=== PATIENT | female | born 1990 | race African-American/Black ===

== ENCOUNTER 2022-06-23 17:23 | Emergency (ER) | payer BC, SELFPAY ==
[2022-06-23 17:35] VITALS: BP 154/89; PULSE 94; RESP 16; TEMP 36.8; O2SAT 100
--- NOTE | 2022-06-23 17:43 | ED.GENADULT ---
HPI - General Adult General Chief complaint: Chest Pain Stated complaint: chest pain Source: patient Mode of arrival: ambulatory Limitations: no limitations History of Present Illness HPI narrative: [age] year old female with hx HTN presents for complaint of intermittent right-sided chest pain for almost 1 week. Also wanted to follow-up regarding sinus congestion, headache, and ear infections diagnosed 2 days ago. She states she started with right-sided headache and right eye pain with redness, dry cough and bilateral ear pain worsening over the past week. She was seen by PCP 2 days ago and was prescribed Augmentin for bilateral ear infection. They also performed an EKG at that time for her right-sided chest pain, and was told it was normal. Patient reports the pain is sharp, tight, intermittent, and worse with movement. Endorses stressful job and history of anxiety. Denies palpitations, shortness of breath, wheezing, nausea, vomiting or sweating. Pain is not radiating. Related Data Home Medications Medication Instructions Recorded Confirmed amlodipine 5 mg tablet mg 06/23/22 amoxicillin 875 mg-potassium tablet 06/23/22 clavulanate 125 mg tablet buspirone 10 mg tablet mg 06/23/22 hydrochlorothiazide 12.5 mg capsule mg 06/23/22 paroxetine HCl 20 mg tablet mg PO 06/23/22 prednisone 20 mg tablet mg 06/23/22 trazodone 50 mg tablet mg 06/23/22 Allergies Allergy/AdvReac Type Severity Reaction Status Date / Time No Known Allergies Allergy Verified 06/23/22 17:33 Review of Systems Review of Systems: CONSTITUTIONAL: Denies body aches, fever, chills, or sweats. EYES: Denies visual changes, redness, or discharge. ENT: Reports rhinorrhea, congestion, denies sore throat, or otalgia. CARDIOVASCULAR: Reports right sided chest pain, denies palpitations, or edema. RESPIRATORY: denies cough, sob, wheezing. GASTROINTESTINAL: Denies abdominal pain, nausea, vomiting, or diarrhea. GENITOURINARY: Denies dysuria or hematuria. SKIN: Denies rash, itching, or wounds. MUSCULOSKELETAL: Denies back pain, joint pain, or myalgia. NEUROLOGIC: Reports headache, denies numbness, tingling, or weakness. PSYCH: Reports anxiety. All systems reviewed & are unremarkable except as noted in HPI and below PMFSH Comments At time of signature, I have reviewed and agree with nursing past medical, surgical, social and family history unless otherwise noted. Please see nursing chart for further information. There is no relevant family history pertinent to the presenting complaint Exam Narrative: GENERAL: Well-appearing, in no acute distress. EYES: EOMI. No redness or drainage. Conjunctivae normal. ENT: Mucous membranes pink and moist. No rhinorrhea. TMs normal bilaterally. Throat normal. Uvula midline. NECK: Normal AROM. Supple. CHEST: No respiratory distress. Lungs clear to all yoder. No reproducible chest pain HEART: Regular rate and rhythm. No murmur appreciated. ABDOMEN: Soft, nontender, nondistended, normal active bowel sounds. EXTREMITIES: Normal range of motion. No edema. SKIN: Warm, dry, no rash. Capillary refill normal. Normal skin turgor. NEURO: Alert and oriented x3. Gait steady. PSYCH: Normal affect. Course Course Emergency Course: Patient is aware of diagnosis, understands and agrees to treatment plan. Anticipatory guidance given. Patient agrees to follow-up as directed and is aware of reasons to seek care at the emergency department. Portions of this record may have been created with voice recognition software Level of Care: Express Care Visit Vital Signs Vital signs: Vital Signs Temperature 98.3 F 06/23/22 17:35 Pulse Rate 94 06/23/22 17:35 Respiratory Rate 16 06/23/22 17:35 Blood Pressure 154/89 H 06/23/22 17:35 Pulse Oximetry 100 06/23/22 17:35 Temperature 98.3 F 06/23/22 17:35 Pulse Rate 94 06/23/22 17:35 Respiratory Rate 16 06/23/22 17:35 Blood Pres
== END 2022-06-23 18:06 | disposition home or self-care (01) ==
PROVIDERS: Emergency Provider Nurse Practitioner Family
DX: R07.89 Other chest pain (principal); I10 Essential (primary) hypertension
CPT/HCPCS: 99211; G0463

== ENCOUNTER 2024-04-11 12:48 | Outpatient (CLI) | payer OTHER, SELFPAY ==
--- NOTE | ~2024-04-11 | US_ITS ---
EXAMINATION: US OB transvaginal DATE: 04/11/2024 13:17 INDICATION: with inconclusive viability. TECHNIQUE: Real-time transvaginal pelvic ultrasound was performed. COMPARISON: None. FINDINGS: The uterus measures 9.8 x 5.7 x 6.5 cm. There is an intrauterine gestational sac. A yolk sac is ident ified. The crown rump length measures 1.3 cm, which correlates with an estimated gestational a ge of 7 weeks and 4 day(s) (+/-) 5 day(s). heart motion is identified measuring 178 beats per m inute (bpm) by M-mode Doppler. The ovaries are not visualized. There is no free fluid in the pelvis. IMPRESSION: 1. Single living intrauterine gestation with estimated date of delivery of 11/24/2024. Reviewed, dictated and finalized at location A. RESOLUTION SPECIALIST
== END 2024-04-11 12:49 | disposition home or self-care (01) ==
LOC: MICIMG 12:49
PROVIDERS: PCP Nurse Practitioner Women's Health; Visit Provider Nurse Practitioner Women's Health
DX: O36.80X0 Pregnancy with inconclusive fetal viability, not applicable or unspecified (principal); Z3A.00 Weeks of gestation of pregnancy not specified
CPT/HCPCS: 76817

== ENCOUNTER 2024-08-02 09:35 | Observation (INO) | payer OTHER, SELFPAY ==
[2024-08-02] VITALS (8 sets, daily range): BP systolic 123–137; BP diastolic 71–78; PULSE 81–96; BMI 40.6
--- OUTSIDE RECORDS SUMMARY | 2024-08-02 09:44 | XMS_ITS | Clinical Summary ---
Author Organization [facility] [email or web address] Address [address] [place] [address] Care Team Providers Care Machinery Mover Name Role Phone Unknown, Provider Primary Care Provider Unavaila ble Source Comments [facility],non-owned Affiliates and Associated Physician Practices is amultiple site organization consisting of ambulatory clinics and hospital sitesin [place], [place], [place] and [place]. This disclosure is being madepursuant to the Care Everywhere program and may not contain all information available regarding this patient. Last updated 17.[facility] [email or web address] Allergies Active Allergy Reactions Criticality Noted Date Comments Etonogestrel-Ethinyl Estradiol Urticaria Medium 07/05 Medications * Be aware that medications may not be up to date on this document. Alwaysverify current medications with the patient. sertraline (Zoloft) 50 MG tablet Take 1 (one) tablet by mouth once daily 05/27/2024 Active Vit-Fe Fumarate-FA ( vitamin) 28-0.8 MG tablet Take 1 (one) tablet by mouth once daily Active Active Problems Patient Care Coordination No te Formatting of this note migh t be different from the original. Please see care plan in problem list. 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 SNF PATIENT--PLEASE CALL [phone] (ex 2) IF TRIAGED OR ADMITTED Care Provider: Dr. Davis; [facility] consultants involved: Marissa- Nurse Navigator; Dr. 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 See Images or Cardiac under Chart Review for US/ ECHO/ MRI reports. Estimated Date of Delivery Comme nts Yes 11/24/2024 Based on Ultraso und Encounters Date Type Department Care Team Description 08/01/2024 7:30 AM CDT - 08/01/2024 11:59 PM CDT Hospital Encounter [facility] [address] [place] [address] Farhad Casarez MD Dildy, Gary A, MD Discharge Disposition: Home or Self Care 07/29/[address] [address] Makeda Garcia, military communications specialist 07/29/2024 Telephone [facility] [place] [facility] [address] [address] Makeda Garcia, military communications specialist 07/26/[address] [address] Makeda Garcia, military communications specialist 07/05/2024 8:53 AM CDT - 07/05/2024 11:59 PM CDT Hospital Encounter [facility] [address] [place] [address] Blayne Mancera MD Discharge Disposition: Home or Self Care 07/05/2024 7:30 AM CDT - 07/05/2024 8:52 AM CDT Hospital Encounter [facility] [address] [place] [address] Blayne Mancera MD Discharge Disposition: Home or Self Care from Last 3 Months Social History Tobacco Use Types Packs/Day Years Used Date Smoking Tobacco: Never Assessed Estimated Date of Delivery Comme nts Yes 11/24/2024 Based on Ultraso und Sex and Gender Information Value Date Recorded Sex Assigned at Not on file Legal Sex Female 6:23 AM MANAGER OF INFORMATION Gender Identity Not on file Sexual Orientation Not on file Last Filed Vital Signs Vital Sign Reading Time Taken Comments Blood Pressure 124/72 07/05/2024 8:54 AM CDT Pulse 90 07/05/2024 8:54 AM CDT Temperature - - Respiratory Rate - - Oxygen Saturation - - Inhaled Oxygen Concentration - - Weight 121.6 kg (268 lb) 07/05/2024 8:54 AM CDT Height 175.3 cm (5' 9) 07/05/2024 8:54 AM CDT Body Mass Index 39.58 07/05/2024 8:54 AM CDT Plan of Treatment Upcoming Encounters Date Type Department Care Team (Late st Contact Info) Description 08/22/2024 12:30 PM CDT Appointment [address] [address] 08/29/2024 7:30 AM CDT Appointment [facility] [address] [place] [address] Health Maintenance Due Date Last Done Comments HIV SCREENING 10/01/2003 HEPATITIS C SCREENING 09/26/2006 DTAP/TDAP/TD VACCINES (1 - Tdap) 10/01/2007 HEPATITIS B VACCINE (1 of 3 - 19+ 3-dose series) 10/01/2007 COVID-19 VACCINE (4 - 2023-2 5 season) 2023 03/26/2021, 09/14/2020, 08/26/2020 DEPRESSION SCREENING 02/21/2024 OB-ONE HOUR GLUCOSE 08/18/2024 OB-TDAP CURRENT 08/25/20242020, 10/15/2012 INFLUENZA VACCINE (Season Ended) 2024 Respiratory Syncytial Virus (RSV) Vaccine Pt: or over 60 yrs (1 - Risk 1-dose series) 10/21/2024 PAP SMEAR 01/10/2027 01/11/2024 ZOSTER VACCINE (1 of 2) 2038 HIB VACCINE Aged Out No longer eligi ble based on patient's age to complete this topic HPV VACCINE Aged Out No longer eligi ble based on patient's age to complete this topic MENINGOCOCCAL (Group B) VACCINE SHARED DECISION-MAKING Aged Out No longer eligible based on patient's age to complete this topic MENINGOCOCCAL GROUPS A/C/Y/W VACCINE Aged Out No longer eligible b ased on patient's age to complete this topic PNEUMOCOCCAL VACCINE Aged Out No long er eligible based on patient's age to complete this topic Procedures Procedure Name Priority Date/Time Associated Diagnosis Comments SONOGRAM - COMPLETE Routine 08/01/2024 7 :33 AM CDT Sixth (HCC) History of History of delivery History of gestational diabetes mellitus (GDM) 23 weeks gestation of (HCC) Encounter for ultrasound (HCC) SONOGRAM - COMPLETE Routine 07/05/2024 7 :56 AM CDT Encounter for anatomic survey (HCC) 19 weeks gestation of (HCC) Sixth (HCC) History of History of delivery History of gestational diabetes mellitus (GDM) from Last 3 Months Results * SONOGRAM - COMPLETE (08/01/2024 7:33 AM CDT) Only the most recent of2 resultswithin the time period is included. Linked Results Indication ======== AMA 34 with low-risk cf-DNA, Obesity class II, Anxiety on Zoloft , Prior C/S Incomplete anatomy History ====== OB History 6. Para 2 [id number] 1. miscarriage 2014. Details: 1st trimester 2. live 08/06/2016. Details: delivery 3. elective termination 2018. Details: 1st trimester 4. live 08/19/2020. Details: Vaginal delivery 5. miscarriage 2022. Details: 1st trimester Lab Tests Test Date Result NIPT Low risk, Male Maternal Assessment Physical Exam Height 175 cm, 5 ft 9 in. Weight 124 kg, 274 lb. Initial weight 122 kg, 268 lb. BMI 40.46 kg/m . Initial BMI 39.58 kg/m . Weight gain 3 kg, 6 lb Method ====== Transabdominal ultrasound. View: Sufficient ========= Coombs . Number of fetuses: 1 Dating ====== Date Details Gest. age [place] LMP 02/15/2024 24 w + 0 d 11/21/2024 Stated [place] 24 w + 0 d 11/21/2024 Previous U/S 04/11/2024 GA, GA 7 w + 4 d 23 w + 4 d 11/24/2024 U/S 08/01/2024 based upon AC, BPD, Femur, HC 24 w + 1 d 11/20/2024 Assigned dating based on the LMP, selected on 07/05/2024 24 w + 0 d 11/21/2024 General Evaluation Cardiac activity present. FHR 156 bpm. Presentation: transverse Placenta: Placental site: anterior Umbilical cord: Cord vessels: 3 vessel cord. Insertion site: normal insertion Amniotic fluid: Amount of AF: normal. MVP 6.6 cm Biometry BPD 58.8 mm 24w 0d 45% Hadlock HC 219.0 mm 24w 0d 30% Hadlock AC 202.7 mm 24w 6d 69% Hadlock Femur 41.8 mm 23w 4d 25% Hadlock Humerus 42.4 mm 25w 3d 84% Jovan HC / AC 1.08 Weight Calculation: EFW 679 g 54% Hadlock EFW (lb,oz) 1 lb 8 oz EFW by Hadlock ([id number]) appropriate Growth Overview Exam date GA BPD (mm) HC (mm) AC (mm) FL (mm) HL (mm) EFW (g) 07/05/2024 20w 1d 47.6 61% 180.9 59% 151.1 51% 31.9 34% 33.4 89% 338 48% 08/01/2024 24w 0d 58.8 45% 219 30% 202.7 69% 41.8 25% 42.4 84% 679 54% Anatomy The following structures appear normal: Head / Neck Cerebellum. Face Lips. Profile. Nose. Orbits. Heart / Thorax 4-chamber view. RVOT view. LVOT view. 3-vessel view. 4-bivozl-snfjmsl view. Situs. Aortic arch view. Bicaval view. Ductal arch view. Great vessels. Diaphragm. Abdomen Stomach. Right kidney. Left kidney. Extremities / Skeleton Hands. The following structures could not be adequately visualized: Spine Cervical spine. Thoracic spine. Lumbar spine. Sacral spine. The following structures were documented previously: Head / Neck Cranium. Lateral ventricles. Choroid plexus. Midline falx. Cavum septi pellucidi. Cisterna magna. Thalami. Nuchal fold. Face Nasal bone. Heart / Thorax Right lung. Left lung. Abdomen Cord insertion. Bladder. Bowel. Genitals. Extremities / Skeleton Arms. Legs. Feet. sex: male. Impression ========= Single, live, intrauterine at 24w 0d The size & amniotic fluid volume are normal The LT kidney appears pelvic in location Comment ======== U/S cannot detect all structural, genetic, or functional , placental, or maternal abnormalities Follow-up ======== in 4 weeks for completion of anatomy & growth Coding ====== Procedures [id number]: US Preg Uterus Follow Up [facility] PACS Anatomical Region Laterality Modality Other 08/01/2024 7:33 AM CDT Sarita Davis MD [facility] ORDERABLES Edited Resu lt - Final from Last 3 Months Insurance [facility] [facility] Care Teams Machinery Mover Relationship Specialty Start Date End Date Unknown, Provider PCP - General 07/05/24
--- OUTSIDE RECORDS SUMMARY | 2024-08-02 09:44 | XMS_ITS | Encounter Summary ---
Author Organization [facility] Address [address] [place] [address] Care Team Providers Care Subscription Clerk Name Role Phone Unavailable Primary Care Provider Unavailabl e Prior Encounters Date Type Department Care Team Description 03/11/2019 Converted CPS Chart Documents [facility] [address] [place] [address] <No scans attached> 03/11/2019 Converted 13x Documents [facility] [address] [place] [address] <No scans attached> Plan of Treatment Not on file Procedures Procedure Name Priority Date/Time Associated Diagnosis Comments COMPREHENSIVE ORAL EVALUATION - NEW OR ESTABLISHED PATIENT Routine 09/04/2018 2:00 AM CDT 19 CROWN - FULL CAST HIGH DORSEY METAL Routine 09/03/2018 2:00 AM CDT 31 SUE AMALGAM 2 SURFACE Routine 09/04/19 19 2:00 AM CDT 30 SUE AMALGAM 2 SURFACE Routine 09/04/19 19 2:00 AM CDT 19 ENDODONTIC THERAPY, MOLAR TOOTH (EXCLUDING FINAL ZOROASTRIANISM) Routine 09/03/2018 2:00 AM CDT PANORAMIC RADIOGRAPHIC IMAGE Routine 09/03/2018 2:00 AM CDT INTRAORAL - COMPREHENSIVE SERIES OF RADIOGRAPHIC IMAGES Routine 09/03/2018 2:00 AM CDT INTRAORAL PHOTO Routine 09/03/2018 2:00 AM CDT INTRAORAL PHOTO Routine 09/03/2018 2:00 AM CDT INTRAORAL PHOTO Routine 09/03/2018 2:00 AM CDT INTRAORAL PHOTO Routine 09/03/2018 2:00 AM CDT Visit Diagnoses Not on file
--- OUTSIDE RECORDS SUMMARY | 2024-08-02 09:44 | XMS_ITS | Encounter Summary ---
Author Organization [facility] Address [address] [place] [address] Care Team Providers Care Senior Java Software Developer Name Role Phone Unknown, Provider Primary Care Provider Unavaila ble Reason for Referral * (Routine) - Open Specialty Diagnoses / Procedures Referred By Contac t Referred To Contact Diagnoses Sixth (HCC) History of History of delivery History of gestational diabetes mellitus (GDM) 23 weeks gestation of (HCC) Encounter for ultrasound (HCC) Procedures SONOGRAM - COMPLETE Sarita Davis MD [address] [place] [address] Phone: tel: fax: Referral ID Status Reason Start Date Expiration Date Visits Re quested Visits Authorized [id number] Open 07/22/2024 07/22/2025 1 1 * (Routine) - Open Specialty Diagnoses / Procedures Referred By Contac t Referred To Contact Diagnoses Sixth (HCC) History of History of delivery History of gestational diabetes mellitus (GDM) 23 weeks gestation of (HCC) Encounter for ultrasound (HCC) Procedures SONOGRAM - COMPLETE Sarita Davis MD [address] [place] [address] Phone: tel: fax: Referral ID Status Reason Start Date Expiration Date Visits Re quested Visits Authorized [id number] Open 07/22/2024 07/22/2025 1 1 Reason for Visit * Reason Comments Ultrasound * (Routine) - Open Specialty Diagnoses / Procedures Referred By Contac t Referred To Contact Diagnoses Sixth (HCC) History of History of delivery History of gestational diabetes mellitus (GDM) 23 weeks gestation of (HCC) Encounter for ultrasound (HCC) Procedures SONOGRAM - COMPLETE Sarita Davis MD [address] [facility] [address] [place] [address] Phone: tel: fax: Referral ID Status Reason Start Date Expiration Date Visits Re quested Visits Authorized [id number] Open 07/22/2024 07/22/2025 1 1 Encounter Details Date Type Department Care Team (Latest Contact Info) Description 08/01/2024 7:30 AM CDT - 08/01/2024 11:59 PM CDT Hospital Encounter 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 Gender Identity Not on file Sexual Orientation Not on file documented as of this encounter Medications at Time of Discharge Vit-Fe Fumarate-FA ( vitamin) 28-0.8 MG tablet Take 1 (one) tablet by mouth once daily sertraline (Zoloft) 50 MG tablet Take 1 (one) tablet by mouth once daily 05/27/2024 documented as of this encounter Plan of Treatment Upcoming Encounters Date Type Department Care Team (Late st Contact Info) Description 08/22/2024 12:30 PM CDT Appointment [facility] [address] [place] [address] [place] [address] 08/29/2024 7:30 AM CDT Appointment [facility] [address] [facility] [address] documented as of this encounter Procedures Procedure Name Priority Date/Time Associated Diagnosis Comments SONOGRAM - COMPLETE Routine 08/01/2024 7 :33 AM CDT Sixth (HCC) History of History of delivery History of gestational diabetes mellitus (GDM) 23 weeks gestation of (HCC) Encounter for ultrasound ([facility]) documented in this encounter Results * SONOGRAM - COMPLETE (08/01/2024 7:33 AM CDT) Linked Results Indication ======== AMA 34 with low-risk cf-DNA, Obesity class II, Anxiety on Zoloft , Prior C/S Incomplete anatomy History ====== OB History 6. Para 2 [id number] 1. miscarriage 2014. Details: 1st trimester 2. [...] 1 lb 8 oz EFW by Hadlock ([id number]) appropriate Growth Overview Exam date [place] BPD [...] view. RVOT view. LVOT view. 3-vessel view. 5-amahfl-jecazob view. Situs. Aortic arch view. Bicaval view. [...] of anatomy & growth Coding ====== Procedures [id number]: US Preg Uterus Follow Up appCREAR PACS Anatomical Region Laterality Modality Other 08/01/2024 7:33 AM CDT us Sarita Davis MD [facility] ORDERABLES Edited Resu lt - Final documented in this encounter Visit Diagnoses Diagnosis Sixth (HCC)- Primary state, incidental History of Previous delivery, delivered, with or without mention of antepartum condition History of delivery Other postprocedural status History of gestational diabetes mellitus (GDM) 23 weeks gestation of (HCC) state, incidental Encounter for ultrasound ([facility]) Encounter for routine screening for malformation using ultrasonics documented in this encounter Care Teams Senior Java Software Developer Relationship Specialty Start Date End Date Unknown, Provider PCP - General 07/05/24 documented as of this encounter
--- OUTSIDE RECORDS SUMMARY | 2024-08-02 09:44 | XMS_ITS | Clinical Summary ---
Author Organization [facility] Address [address] [place] [address] Care Team Providers Care Professor Of Communication And Writing Name Role Phone Unavailable Primary Care Provider Unavailabl e Social History Tobacco Use Types Packs/Day Years Used Date Smoking Tobacco: Never Assessed Comments Unknown Sex and Gender Information Value Date Recorded Sex Assigned at Not on file Legal Sex Female 12:15 AM PST Gender Identity Not on file Sexual Orientation Not on file Plan of Treatment Not on file
--- NOTE | 2024-08-02 10:03 | OBADM ---
This patient, Zohreh Kevin, admitted to the OB room OB Post 116 for observation. Patient/family oriented to hospital policies and general routines including ID bracelet, bed and alarms, visiting hours, pain management, procedures, bathroom and other care routines, personal items, smoking policy, room service/diet, and visiting hours. Patient/Family are encouraged to report perceived risks to care and to ask questions if they do not understand what they are told or what they should do.
[2024-08-02 10:12] LABS: Bacteria Urine 3+ /hpf; Non Pathogenic Casts 0-2; RBC Urine 0-2 /hpf (0-2); Squamous Epithelial Cell Urine Many /hpf (Few); WBC Urine 0-5 /hpf (0-3)
[2024-08-02 10:15] LABS: Add Urine Microscopic? YES; Appearance Urine Clear (Clear); Bilirubin Urine Negative (Negative); Blood Urine Trace-intact (Negative); Color Urine Yellow (Yellow); Glucose Urine UA Negative (Negative); Ketones Urine Negative (Negative); Nitrate Urine Negative (Negative); Protein Urine Trace mg/dL (Negative); Specific Grav Ur 1.025 (1.001-1.035); pH Urine 6.5 (5.0-9.0)
[2024-08-02 10:16] LABS: Leukocyte Esterase Ur Negative LEU/UL (Negative); Urobilinogen Urine 0.2 mg/dL (<2.0)
[2024-08-02] MEDS: ACETAMINOPHEN 500 MG TABLET 1000 MG PO (10:41)
--- NOTE | 2024-08-05 16:30 | P.PNOB_ITS ---
OB - Triage/Final Diagnosis Visit Information Reason for evaluation: other (lightheaded) Comments/Additional reasons for admission: I have assessed the risk for this patient, Zohreh Kevin, and determined that she would benefit from observation care. Evaluation Laboratory results: Laboratory Tests 08/02/24 09:55 Urine Color Yellow Urine Appearance Clear Urine pH 6.5 Ur Specific [place] 1.025 Urine Protein Trace Urine Glucose (UA) Negative Urine Ketones Negative Ur Blood (Man) Trace-intact H Urine Nitrate Negative Urine Bilirubin Negative Urine Urobilinogen 0.2 Leukocyte Esterase Rfl Negative Urine RBC 0-2 Urine WBC 0-5 Ur Squamous Epith Cells Many H Urine Bacteria 3+ H Urine Casts 0-2
== END 2024-08-02 11:44 | disposition home or self-care (01) ==
PROVIDERS: Admitting Provider Obstetrics & Gynecology Gynecology; PCP Nurse Practitioner Women's Health; Visit Provider Obstetrics & Gynecology Gynecology
DX: O26.892 Other specified pregnancy related conditions, second trimester (principal); R42 Dizziness and giddiness; Z3A.24 24 weeks gestation of pregnancy
CPT/HCPCS: 59025; 81001; A9270; G0378; G0379

== ENCOUNTER 2024-08-26 05:40 | Observation (INO) | payer OTHER, SELFPAY ==
--- OUTSIDE RECORDS SUMMARY | 2024-08-26 05:50 | XMS_ITS | Encounter Summary ---
Author Organization [facility] Address [address] [place] [address] Care Team Providers Care Demolition Worker Name Role Phone VenturaFarhad DO Primary Care Provider Encounter Details Date Type Department Care Team (Late st Contact Info) Description 02/28/2003 Outpatient Historical [facility] [address] 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 Gender Identity Not on file Sexual Orientation Not on file documented as of this encounter Plan of Treatment Not on file documented as of this encounter Visit Diagnoses Not on filedocumented in this encounter Additional Health Concerns Infection Onset Date Last Indicated Resolved Time R/O COVID-19 03/17/2021 03/18/2021 03/19/2021 1:53 AM SAWMILL PRODUCTION WORKER documented as of this encounter Care Teams Demolition Worker Relationship Specialty [place] [address] [place] [address] PCP - General Internal Medicine 01/24/22 documented as of this encounter
--- OUTSIDE RECORDS SUMMARY | 2024-08-26 05:50 | XMS_ITS | Encounter Summary ---
Author Organization [facility] Address [address] [place] [address] Care Team Providers Care Blocker Metal Base Name Role Phone Farhad Whitehead DO Primary Care Provider Encounter Details Date Type Department Care Team (Late st Contact Info) Description 02/22/2005 Outpatient Historical [facility] [id number] [place] [address] [place] [address] [place] [address] Social History Tobacco Use Types Packs/Day Years Used Date Smoking Tobacco: Never Assessed Comments Unknown Sex and Gender Information Value Date Recorded Sex Assigned at Not on file Legal Sex Female 4:25 AM ADVANCED PRACTICE PROVIDER Gender Identity Not on file Sexual Orientation Not on file documented as of this encounter Plan of Treatment Not on file documented as of this encounter Visit Diagnoses Not on filedocumented in this encounter Additional Health Concerns Infection Onset Date Last Indicated Resolved Time R/O COVID-19 03/17/2021 03/18/2021 03/19/2021 1:53 AM ADVANCED PRACTICE PROVIDER documented as of this encounter Care Teams Blocker Metal Base Relationship Specialty Start Date End Date VenturaFarhad GarciaDO [address] [place] [address] PCP - General Internal Medicine 01/24/22 documented as of this encounter
--- OUTSIDE RECORDS SUMMARY | 2024-08-26 05:50 | XMS_ITS | Clinical Summary ---
Author Organization [facility] Address [address] [place] [address] Care Team Providers Care Appraiser Real Estate Name Role Phone Unavailable Primary Care Provider [...]
--- OUTSIDE RECORDS SUMMARY | 2024-08-26 05:50 | XMS_ITS | Encounter Summary ---
Author Organization [facility] Address [address] [place] [address] Care Team Providers Care Disk Operator Name Role Phone VenturaFarhad DO Primary Care Provider Encounter Details Date Type Department Care Team (Late st Contact Info) Description 07/11/2003 Outpatient Historical [facility] [address] [place] [address] [place] [address] [place] [address] Social History Tobacco Use Types Packs/Day Years Used Date Smoking Tobacco: Never Assessed Comments Unknown Sex and Gender Information Value Date Recorded Sex Assigned at Not on file Legal Sex Female 4:25 AM AIRWAY TRAFFIC CONTROLLER Gender Identity Not on file Sexual Orientation Not on file documented as of this encounter Plan of Treatment Not on file documented as of this encounter Visit Diagnoses Not on filedocumented in this encounter Additional Health Concerns Infection Onset Date Last Indicated Resolved Time R/O COVID-19 03/17/2021 03/18/2021 03/19/2021 1:53 AM AIRWAY TRAFFIC CONTROLLER documented as of this encounter Care Teams Disk Operator Relationship Specialty Start [place] [address] [place] [address] PCP - General Internal Medicine 01/24/22 documented as of this encounter
--- OUTSIDE RECORDS SUMMARY | 2024-08-26 05:50 | XMS_ITS | Encounter Summary ---
Author Organization [facility] Address [address] [place] [address] Care Team Providers Care Director Of Field Coordination Name Role Phone VenturaFarhad DO Primary Care Provider Encounter Details Date Type Department Care Team (Late st Contact Info) Description 11/08/2005 Outpatient Historical [facility] [address] [place] [address] [place] [address] [place] [address] Social History Tobacco Use Types Packs/Day Years Used Date Smoking Tobacco: Never Assessed Comments Unknown Sex and Gender Information Value Date Recorded Sex Assigned at Not on file Legal Sex Female 4:25 AM COMMERCIAL FRONT LOAD DRIVER Gender Identity Not on file Sexual Orientation Not on file documented as of this encounter Plan of Treatment Not on file documented as of this encounter Visit Diagnoses Not on filedocumented in this encounter Additional Health Concerns Infection Onset Date Last Indicated Resolved Time R/O COVID-19 03/17/2021 03/18/2021 03/19/2021 1:53 AM COMMERCIAL FRONT LOAD DRIVER documented as of this encounter Care Teams Director Of Field Coordination Relationship Specialty [place] [address] [place] [address] PCP - General Internal Medicine 01/24/22 documented as of this encounter
--- OUTSIDE RECORDS SUMMARY | 2024-08-26 05:50 | XMS_ITS | Encounter Summary ---
Author Organization [facility] Address [address] [place] [address] Care Team Providers Care Director Patient Financial Services Name Role Phone VenturaFarhad DO Primary Care Provider Encounter Details Date Type Department Care Team (Late st Contact Info) Description 07/20/2001 Outpatient Historical [facility] [address] [place] [address] [place] [address] [place] [address] Social History Tobacco Use Types Packs/Day Years Used Date Smoking Tobacco: Never Assessed Comments Unknown Sex and Gender Information Value Date Recorded Sex Assigned at Not on file Legal Sex Female 4:25 AM RIGGING HELPER Gender Identity Not on file Sexual Orientation Not on file documented as of this encounter Plan of Treatment Not on file documented as of this encounter Visit Diagnoses Not on filedocumented in this encounter Additional Health Concerns Infection Onset Date Last Indicated Resolved Time R/O COVID-19 03/17/2021 03/18/2021 03/19/2021 1:53 AM RIGGING HELPER documented as of this encounter Care Teams Director Patient Financial Services Relationship Specialty [place] [address] [place] [address] PCP - General Internal Medicine 01/24/22 documented as of this encounter
--- OUTSIDE RECORDS SUMMARY | 2024-08-26 05:50 | XMS_ITS | Encounter Summary ---
Author Organization [facility] Address [address] [place] [address] Care Team Providers Care Ramp And Cargo Supervisor Name Role Phone VenturaFarhadda DO Primary Care Provider Encounter Details Date Type Department Care Team (Late st Contact Info) Description 01/17/2000 Outpatient Historical [facility] [address] [place] [address] [place] [address] [place] [address] Social History Tobacco Use Types Packs/Day Years Used Date Smoking Tobacco: Never Assessed Comments Unknown Sex and Gender Information Value Date Recorded Sex Assigned at Not on file Legal Sex Female 4:25 AM PRINCIPAL CONSULTANT Gender Identity Not on file Sexual Orientation Not on file documented as of this encounter Plan of Treatment Not on file documented as of this encounter Visit Diagnoses Not on filedocumented in this encounter Additional Health Concerns Infection Onset Date Last Indicated Resolved Time R/O COVID-19 03/17/2021 03/18/2021 03/19/2021 1:53 AM PRINCIPAL CONSULTANT documented as of this encounter Care Teams Ramp And Cargo Supervisor Relationship Specialty Start [place] [address] [place] [address] PCP - General Internal Medicine 01/24/22 documented as of this encounter
--- OUTSIDE RECORDS SUMMARY | 2024-08-26 05:50 | XMS_ITS | Clinical Summary ---
Author Organization [facility] Address [address] [place] [address] Care Team Providers Care Foot Roentgenologist Name Role Phone Unknown, Provider Primary Care Provider Unavaila ble Source Comments [facility],non-owned Affiliates and Associated Physician Practices is amultiple site organization consisting of ambulatory clinics and hospital sitesin [place], [place], [place] and [place]. This disclosure is being madepursuant to the Care Everywhere program and may not contain all information available regarding this patient. Last updated 17.[facility]elight Allergies Active Allergy Reactions Criticality Noted Date [...] problem list. Problem Noted Date Diagnosed Date Depression screen 08/22/2024 Overview (08/22/2024): 08/22/2024 Zohreh Kevin was screened for depression using the [place] Depression Scale (EPDS) at her [facility] initial evaluation on 08/22/2024. Her initial score at baseline was 4. Based off of her score of 4, Zohreh does not warrant follow up. Patient will continue to be screened throughout , at intervals no closer than two weeks, for continued surveillance and early identification of depression until delivery. Patient reports mental health history. Diagnoses include anxiety. 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 JAIL PATIENT--PLEASE CALL [phone] (ex 2) IF TRIAGED OR ADMITTED Care Provider: Dr. Davis; [facility] consultants involved: Marissa- Nurse Navigator; Dr. 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 on 08/01; Initial JAIL appointment on 08/22 Delivery location: Delivery mode: Desired Delivery GA: follow up: Asphalt Tamping Machine Operator: Autopsy indicated: Genetics note: Manufacturing Test Technician Concerns: 08/22/2024-Patient with history of anxiety- does take medication Care plan based on evaluation and is subject to change based on assessment. See Images or Cardiac under Chart Review for US/ ECHO/ MRI reports. Estimated Date of Delivery Comme nts Yes 11/24/2024 Based on Ultraso und Encounters Date Type Department Care Team Description 08/22/2024 12:00 PM CDT - 08/22/2024 11:59 PM CDT Hospital Encounter [address] [address] Manny Miles MD GRAPHOTYPE OPERATOR Discharge Disposition: Home or Self Care 08/21/[address] [address] Lorena Jarrett Reminder Call 08/01/2024 7:30 AM CDT - 08/01/2024 11:59 PM CDT Hospital Encounter [facility] [address] [place] [address] Farhad Casarez MD Dildy, Gary A, MD Discharge Disposition: Home or Self Care 07/29/[address] [address] Makeda Garcia, chief privacy officer 07/29/2024 Telephone [facility] [address] [place] [address] Makeda Garcia chief privacy officer 07/26/2024 Telephone [facility] [address] [place] [address] Makeda Garcia, chief privacy officer 07/05/2024 8:53 AM CDT - 07/05/2024 11:59 PM CDT Hospital Encounter [facility] Maternal & Care [address] [place] [address] Blayne Mancera MD Discharge Disposition: Home or Self Care 07/05/2024 7:30 AM CDT - 07/05/2024 8:52 AM CDT Hospital Encounter [facility] [address] [place] [address] Blayne Mancera MD Discharge Disposition: Home or Self Care from Last 3 Months Social History Tobacco Use Types Packs/Day Years Used Date Smoking Tobacco: Never Assessed Hunger Vital Sign Answer Date Recorded Within the past 12 months, y ou worried that your food would run out before you got the money to buy more. Never true 08/23/19 25 Within the past 12 months, t he food you bought just didn't last and you didn't have money to get more. Never true 08/22/2024 Rosedale Depression Scale Answer Date Recorded [place] Depression Scale Total 4 08/22/2024 The thought of harming myself has occurred to me . Never 08/22/2024 Estimated Date of Delivery Comme nts Yes 11/24/2024 Based on Ultraso und Sex and Gender Information Value Date Recorded Sex Assigned at Not on file Legal Sex Female 6:23 AM STONE GANG SAWYER Gender Identity Not on file Sexual Orientation Not on file Last Filed Vital Signs Vital Sign Reading Time Taken Comments Blood Pressure 129/86 08/22/2024 1:12 PM CDT Pulse 102 08/22/2024 1:12 PM CDT Temperature - - Respiratory Rate - - Oxygen Saturation - - Inhaled Oxygen Concentration - - Weight 125 kg (275 lb 9.2 oz) 08/22/2024 1:12 PM CDT Height 175.3 cm (5' 9) 07/05/2024 8:54 AM CDT Body Mass Index 40.7 07/05/2024 8:54 AM CDT Plan of Treatment Upcoming Encounters Date Type Department Care Team (Late st Contact Info) Description 09/17/2024 7:30 AM CDT Appointment [facility] [address] [place] [address] Health Maintenance Due Date Last Done Comments HIV SCREENING 10/01/2003 HEPATITIS C SCREENING 09/26/2006 DTAP/TDAP/TD VACCINES (1 - Tdap) 10/01/2007 HEPATITIS B VACCINE (1 of 3 - 19+ 3-dose series) 10/01/2007 COVID-19 VACCINE (4 - 2023-2 5 season) 2023 03/26/2021, 09/14/2020, 08/26/2020 DEPRESSION SCREENING 02/21/2024 08/22/2024 OB-ONE HOUR GLUCOSE 08/18/2024 OB-TDAP CURRENT 08/25/20242020, 10/15/2012 OB-RHOGAM INJECTION 09/01/2024 INFLUENZA VACCINE (#1) 2024 Respiratory Syncytial Virus (RSV) Vaccine Pt: [...] Associated Diagnosis Comments SONOGRAM - COMPLETE Routine 08/22/2024 1 2:38 PM CDT abnormality affecting management of mother, single or unspecified fetus (HCC) SONOGRAM - COMPLETE Routine 08/01/2024 7 :33 [...] 3 Months Results * SONOGRAM - COMPLETE (08/22/2024 12:38 PM CDT) Only the most recent of3 resultswithin the time period is included. Linked Results Indication ======== AMA 34 with low-risk cf-DNA, Obesity class II, Anxiety on Zoloft , Prior C/S Incomplete anatomy History ====== OB History 6. Para 2 [id number] 1. miscarriage 2014. Details: 1st trimester 2. live 08/06/2016. Details: delivery 3. elective termination 2018. Details: 1st trimester 4. live 08/19/2020. Details: Vaginal delivery 5. miscarriage 2022. Details: 1st trimester Lab Tests Test Date Result NIPT Low risk, Male Maternal Assessment Physical Exam Height 175 cm, 5 ft 9 in. Weight 125 kg, 275 lb. Initial weight 122 kg, 268 lb. BMI 40.61 kg/m . Initial BMI 39.58 kg/m . Weight gain 3 kg, 7 lb Method ====== Transabdominal ultrasound. View: Sufficient ========= Coombs . Number of fetuses: 1 Dating ====== Date Details Gest. age AUSTIN LMP 02/15/2024 27 w + 0 d 11/21/2024 Stated AUSTIN 27 w + 0 d 11/21/2024 Previous U/S 04/11/2024 GA, GA 7 w + 4 d 26 w + 4 d 11/24/2024 U/S 08/22/2024 based upon AC, BPD, Femur, HC 27 w + 6 d 11/15/2024 Assigned dating based on the LMP, selected on 07/05/2024 27 w + 0 d 11/21/2024 General Evaluation Cardiac activity present. FHR 153 bpm. Presentation: transverse, head maternal right Placenta: Placental site: anterior Umbilical cord: Cord vessels: 3 vessel cord. Insertion site: normal insertion - previously documented Amniotic fluid: Amount of AF: mildly increased. MVP 10.0 cm Biometry BPD 69.5 mm 28w 0d 70% Hadlock HC 255.0 mm 27w 5d 45% Hadlock AC 240.9 mm 28w 3d 81% Hadlock Femur 50.9 mm 27w 2d 43% Hadlock Humerus 47.8 mm 28w 0d 77% Jovan HC / AC 1.06 Weight Calculation: EFW 1,145 g 27w 4d 74% Hadlock EFW (lb,oz) 2 lb 8 oz EFW by Hadlock ([id number]) appropriate Growth Overview Exam date GA BPD (mm) HC (mm) AC (mm) FL (mm) HL (mm) EFW (g) 07/05/2024 20w 1d 47.6 61% 180.9 59% 151.1 51% 31.9 34% 33.4 89% 338 48% 08/01/2024 24w 0d 58.8 45% 219 30% 202.7 69% 41.8 25% 42.4 84% 679 54% 08/22/2024 27w 0d 69.5 70% 255 45% 240.9 81% 50.9 43% 47.8 77% 1145 74% Anatomy The following structures appear abnormal: Abdomen Kidneys. The following structures appear normal: Head / Neck Cranium. Choroid plexus. Midline falx. Cavum septi pellucidi. Thalami. Face Lips. Profile. Nose. Nasal bone. Heart / Thorax 4-chamber view. RVOT view. LVOT view. Situs. Interventricular septum. Great vessels. Right lung. Left lung. Diaphragm. Abdomen Cord insertion. Stomach. Bladder. Genitals. Spine Cervical spine. Thoracic spine. Lumbar spine. Sacral spine. Extremities / Skeleton Legs. The following structures were documented previously: Head / Neck Lateral ventricles. Cerebellum. Cisterna magna. Face Orbits. Heart / Thorax 3-vessel view. 9-dykobi-sctlcxa view. Aortic arch view. Bicaval view. Ductal arch view. Extremities / Skeleton Arms. Hands. Feet. sex: male. 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 We discussed that the left kidney appears to be in the pelvis and crossing the midline. The right kidney is normal in appearance and in the right renal fossa. Today's ultrasound also appears to show fusion of the kidneys at the inferior poles. The kidneys are otherwise normal in appearance and without UTD. The amniotic fluid volume is normal, which indicated normal renal function. Discussed that the cross-fused kidneys carries a very favorable prognosis. She today with Dr. Villa from Pediatric Nephrology to discuss care for the pelvis/cross-fused kidney (see separate note). At this time, no further JAIL follow-up visits are necessary. Recommend another ultrasound in ~4 weeks at the [facility] office at [place] for growth assessment. OB warnings were reviewed. She was advised to continue routine OB care with her primary OB. At this time, delivery with her primary OB at her hospital of choice is appropriate. She voiced understanding of our discussion today and agreed with the plan of care. I believe all her questions today were answered. Follow-up ======== RECOMMEND: Follow-up ultrasound in 4 weeks at the [facility] office in [place], [place] for growth and AFV No further JAIL visits scheduled at this time. S/p consultation with Pediatric Nephrology Continue routine OB care with primary, Dr. Davis Delivery Location: at hospital of choice with primary OB Delivery Timing: per usual OB indications Mode of Delivery: Per usual OB indications Genetics: NIPS LR Male Coding ====== Procedures 74092: US Preg Uterus Follow Up FALSE PASS PACS Anatomical Region Laterality Modality Other 08/22/2024 12:3 8 PM CDT us Blayne Mancera MD [facility] ORDERABLES Edited Result - Final from Last 3 Months Insurance [employer]ET [facility] [place] [address] Care Teams Foot Roentgenologist Relationship Specialty Start Date End Date Unknown, Provider PCP - General 07/05/24
--- OUTSIDE RECORDS SUMMARY | 2024-08-26 05:50 | XMS_ITS | Encounter Summary ---
Author Organization [facility] Address [address] [place] [address] Care Team Providers Care Lab Nurse Name Role Phone VenturaFarhad DO Primary Care Provider Encounter Details Date Type Department Care Team (Late st Contact Info) Description 10/30/2002 Outpatient Historical [facility] [address] [place] [address] [place] [address] [place] [address] Social History Tobacco Use Types Packs/Day Years Used Date Smoking Tobacco: Never Assessed Comments Unknown Sex and Gender Information Value Date Recorded Sex Assigned at Not on file Legal Sex Female 4:25 AM WINTER INTERN Gender Identity Not on file Sexual Orientation Not on file documented as of this encounter Plan of Treatment Not on file documented as of this encounter Visit Diagnoses Not on filedocumented in this encounter Additional Health Concerns Infection Onset Date Last Indicated Resolved Time R/O COVID-19 03/17/2021 03/18/2021 03/19/2021 1:53 AM WINTER INTERN documented as of this encounter Care Teams Lab Nurse Relationship Specialty [place] [address] [place] [address] PCP - General Internal Medicine 01/24/22 documented as of this encounter
--- OUTSIDE RECORDS SUMMARY | 2024-08-26 05:50 | XMS_ITS | Encounter Summary ---
Author Organization [facility] Address [address] [place] [address] Care Team Providers Care Mainspring Strip Gauger Name Role Phone Farhad Whitehead DO Primary Care Provider Encounter Details Date Type Department Care Team (Late st Contact Info) Description 01/03/2002 Outpatient Historical [facility] [address] [place] [address] Natalee Julien MD [address] [address] Social History Tobacco Use Types Packs/Day Years Used Date Smoking Tobacco: Never Assessed Comments Unknown Sex and Gender Information Value Date Recorded Sex Assigned at Not on file Legal Sex Female 4:25 AM WORD PROCESSING SPECIALIST Gender Identity Not on file Sexual Orientation Not on file documented as of this encounter Plan of Treatment Not on file documented as of this encounter Visit Diagnoses Not on filedocumented in this encounter Additional Health Concerns Infection Onset Date Last Indicated Resolved Time R/O COVID-19 03/17/2021 03/18/2021 03/19/2021 1:53 AM WORD PROCESSING SPECIALIST documented as of this encounter Care Teams Mainspring Strip Gauger Relationship Specialty Start [place] [address] [place] [address] PCP - General Internal Medicine 01/24/22 documented as of this encounter
--- OUTSIDE RECORDS SUMMARY | 2024-08-26 05:50 | XMS_ITS | Encounter Summary ---
Author Organization [facility] Address [address] [place] [address] Care Team Providers Care Bone Drier Operator Name Role Phone Farhad Whitehead DO Primary Care Provider Encounter Details Date Type Department Care Team (Late st Contact Info) Description 01/18/2007 Outpatient Historical [facility] [address] [place] [address] [place] [address] [place] [address] Social History Tobacco Use Types Packs/Day Years Used Date Smoking Tobacco: Never Assessed Comments Unknown Sex and Gender Information Value Date Recorded Sex Assigned at Not on file Legal Sex Female 4:25 AM PROPERTY MANAGEMENT COORDINATOR Gender Identity Not on file Sexual Orientation Not on file documented as of this encounter Plan of Treatment Not on file documented as of this encounter Visit Diagnoses Not on filedocumented in this encounter Additional Health Concerns Infection Onset Date Last Indicated Resolved Time R/O COVID-19 03/17/2021 03/18/2021 03/19/2021 1:53 AM PROPERTY MANAGEMENT COORDINATOR documented as of this encounter Care Teams Bone Drier Operator Relationship Specialty Start Date End Date VenturaFarhad GarciaDO [address] [place] [address] PCP - General Internal Medicine 01/24/22 documented as of this encounter
--- OUTSIDE RECORDS SUMMARY | 2024-08-26 05:50 | XMS_ITS | Encounter Summary ---
Author Organization [facility] Address [address] [place] [address] Care Team Providers Care Roll Grinder Operator Name Role Phone VenturaFarhad DO Primary Care Provider Encounter Details Date Type Department Care Team (Late st Contact Info) Description 09/02/2004 Outpatient Historical [facility] [address] [place] [address] [place] [address] [place] [address] Social History Tobacco Use Types Packs/Day Years Used Date Smoking Tobacco: Never Assessed Comments Unknown Sex and Gender Information Value Date Recorded Sex Assigned at Not on file Legal Sex Female 4:25 AM AUTOMOBILE RENTAL AGENT Gender Identity Not on file Sexual Orientation Not on file documented as of this encounter Plan of Treatment Not on file documented as of this encounter Visit Diagnoses Not on filedocumented in this encounter Additional Health Concerns Infection Onset Date Last Indicated Resolved Time R/O COVID-19 03/17/2021 03/18/2021 03/19/2021 1:53 AM AUTOMOBILE RENTAL AGENT documented as of this encounter Care Teams Roll Grinder Operator Relationship Specialty [place] [address] [place] [address] PCP - General Internal Medicine 01/24/22 documented as of this encounter
--- OUTSIDE RECORDS SUMMARY | 2024-08-26 05:50 | XMS_ITS | Encounter Summary ---
Author Organization [facility] Address [address] [place] [address] Care Team Providers Care Talent Management Manager Name Role Phone VenturaFarhad DO Primary Care Provider Encounter Details Date Type Department Care Team (Late st Contact Info) Description 04/09/2001 Outpatient Historical [facility] [address] [place] [address] [place] [address] [place] [address] Social History Tobacco Use Types Packs/Day Years Used Date Smoking Tobacco: Never Assessed Comments Unknown Sex and Gender Information Value Date Recorded Sex Assigned at Not on file Legal Sex Female 4:25 AM CONCHE LOADER AND UNLOADER Gender Identity Not on file Sexual Orientation Not on file documented as of this encounter Plan of Treatment Not on file documented as of this encounter Visit Diagnoses Not on filedocumented in this encounter Additional Health Concerns Infection Onset Date Last Indicated Resolved Time R/O COVID-19 03/17/2021 03/18/2021 03/19/2021 1:53 AM CONCHE LOADER AND UNLOADER documented as of this encounter Care Teams Talent Management Manager Relationship Specialty [place] [address] [place] [address] PCP - General Internal Medicine 01/24/22 documented as of this encounter
--- OUTSIDE RECORDS SUMMARY | 2024-08-26 05:50 | XMS_ITS | Encounter Summary ---
Author Organization [facility] Address [address] [place] [address] Care Team Providers Care Acoustic Intelligence Specialist Name Role Phone VenturaFarhad DO Primary Care Provider Encounter Details Date Type Department Care Team (Late st Contact Info) Description 08/04/2000 Outpatient Historical [facility] [address] [place] [address] [place] [address] [place] [address] Social History Tobacco Use Types Packs/Day Years Used Date Smoking Tobacco: Never Assessed Comments Unknown Sex and Gender Information Value Date Recorded Sex Assigned at Not on file Legal Sex Female 4:25 AM EDGE BANDING MACHINE OFFBEARER Gender Identity Not on file Sexual Orientation Not on file documented as of this encounter Plan of Treatment Not on file documented as of this encounter Visit Diagnoses Not on filedocumented in this encounter Additional Health Concerns Infection Onset Date Last Indicated Resolved Time R/O COVID-19 03/17/2021 03/18/2021 03/19/2021 1:53 AM EDGE BANDING MACHINE OFFBEARER documented as of this encounter Care Teams Acoustic Intelligence Specialist Relationship Specialty [place] [address] [place] [address] PCP - General Internal Medicine 01/24/22 documented as of this encounter
--- OUTSIDE RECORDS SUMMARY | 2024-08-26 05:50 | XMS_ITS | Encounter Summary ---
Author Organization [facility] Address [address] [place] [address] Care Team Providers Care Rn Orthopaedics Name Role Phone VenturaFarhadda DO Primary Care Provider Encounter Details Date Type Department Care Team (Late st Contact Info) Description 09/28/2006 Outpatient Historical [facility] [address] [place] [address] [place] [address] [place] [address] Social History Tobacco Use Types Packs/Day Years Used Date Smoking Tobacco: Never Assessed Comments Unknown Sex and Gender Information Value Date Recorded Sex Assigned at Not on file Legal Sex Female 4:25 AM VENETIAN BLIND MAKER Gender Identity Not on file Sexual Orientation Not on file documented as of this encounter Plan of Treatment Not on file documented as of this encounter Visit Diagnoses Not on filedocumented in this encounter Additional Health Concerns Infection Onset Date Last Indicated Resolved Time R/O COVID-19 03/17/2021 03/18/2021 03/19/2021 1:53 AM VENETIAN BLIND MAKER documented as of this encounter Care Teams Rn Orthopaedics Relationship Specialty [place] [address] [place] [address] PCP - General Internal Medicine 01/24/22 documented as of this encounter
--- OUTSIDE RECORDS SUMMARY | 2024-08-26 05:50 | XMS_ITS | Clinical Summary ---
Author Organization [employer] Randee Duvall Address [address] [place] [address] Phone Care Team Providers Care Cab Starter Name Role Phone Farhad Whitehead DO Primary Care Provider Allergies Active Allergy Reactions Criticality Noted Date Comments Amlodipine Swelling Low 01/03/2022 Etonogestrel-Ethinyl Estradiol Hives,Itching High Medications vit-iron fumarate-fa (JUDIE ) 28 mg iron- 800 mcg Tablet Take 1 Tablet by mouth daily. Active guaiFENesin (ROBITUSSIN) 100 mg/5 mL solutionIndicati ons:Viral upper respiratory infection Take 10 mL (200 mg) by mouth every 4 hours as needed for Cough. 04/01/2024 Active fluticasone propionate (FLONASE) 50 mcg/spray [place], Suspension nasal inhalerIndicatio ns:Viral upper respiratory infection SPRAY 2 SPRAYS INTO EACH NOSTRIL EVERY DAY 48 mL 1 04/23/2024 Active sertraline (ZOLOFT) 50 mg tabletIndication s:Current moderate episode of major depressive disorder without prior episode (CMS/HCC),CHALO (generalized anxiety disorder),Anxiet y state Take 1 Tablet (50 mg) by mouth daily. 90 Tablet 1 05/27/2024 Active Active Problems Patient Care Coordination No te Formatting of this note migh t be different from the original. Primary Care: Glen Urbie MD Referring Provider: No referring provider defined for this encounter. Other: Problem Noted Date Diagnosed Date CHALO (generalized anxiety disorder) 01/17/2024 Morbid obesity with body mass index (BMI) of 40. 0 or higher 10/26/2022 Tobacco use 05/05/2022 HTN (hypertension), benign 01/24/2022 Current moderate episode of major depressive disorder without prior episode 01/24/2022 Primary insomnia 01/24/2022 Gestational diabetes mellitus, class A1 07/03/19 21 Anxiety state 04/03/2020 Obesity affecting , antepartum 02/26/19 21 Fibroadenoma 08/09/2011 Breast asymmetry in female 07/20/2011 Acute left-sided low back pain without sciatica History of section Comments Yes Resolved Problems Problem Noted Date Diagnosed Date Resolved Date Labor, TOLAC, GDMA1 08/19/2020 11/30/19 23 Leakage of amniotic fluid 08/19/2020 FACSIMILE OPERATOR , GDMA1, Girl 08/19/2020 023 Threatened premature labor in third trimester 08/19/19 21 11/29/2022 arrhythmia affecting p regnancy, antepartum 08/04/2020 11/29/2022 headache in third trimester 07/30/2020 11/29/2022 Pain of round ligament during 05/14/2020 11/29/2022 related pelvic inga n in first trimester, antepartum 03/22/2020 11/29/2022 Bacterial vaginitis 03/22/2020 11/30/19 23 History of gestational diabe abisai in prior , currently in second trimester 02/27/2020 11/29/2022 PTLCS; GDM; Boy 08/06/2016 08/06/2016 Vaginal pain 07/13/2016 08/26/2016 Decreased movements in third trimester 7 08/26/2016 Low back pain during pregnan cy in third trimester 06/20/2016 08/26/2016 Diet controlled gestational diabetes mellitus (GDM) in third trimester 06/20/2016 08/26/2016 Round ligament pain 02/16/2016 08/27/19 17 SAB 10/201410/24/2014 12/07/2015 Threatened in early 10/22/2014 12/07/2015 Lump or mass in breast 07/20/201104/30 Spotting during in second trimester 11/29/2022 uterine contractions in third trimester, antepartum 11/29/2022 Encounters Date Type Department Care Team Description 08/07/2024 External Device Data STL ABSTRACTION Provider, Abstract 07/23/2024 External Device Data STL ABSTRACTION Provider, Abstract 07/11/2024 External Device Data STL ABSTRACTION Provider, Abstract 07/11/2024 External Device Data STL ABSTRACTION Provider, Abstract 06/25/2024 External Device Data STL ABSTRACTION Provider, Abstract 05/27/2024 10:20 AM CDT Office Visit [facility] Internal Medicine - [facility] [address] [place] [address] Laura Parikh APN Viral upper respiratory infection (Primary Dx); Encounter for screening for COVID-19; Current moderate episode of major depressive disorder without prior episode (CMS/HCC); CHALO (generalized anxiety disorder); Anxiety state; HTN (hypertension), benign; Severe obesity (BMI 35.0-39.9) with comorbidity (CMS/HCC) from Last 3 Months Immunizations Immunization Administration Dates Next Due (ADACEL/BOOSTRIX)(10 YR UP) TDAP VACCINE, 0.5ML, IM 06/11/2020,10/15/2012 (COMIRNATY)(12 YR UP) COVID- 19 VACCINE, MRNA, SPIKE PROTEIN, LNP, REED(PF) 30 MCG/0.3 ML IM SUSP 12/19/2023 (GARDASIL)(9-45 YRS) HUMAN PAPILLOMAVIRUS VACCINE, TYPES 6, 11, 16, 18, QUADRIVALENT (4VHPV), 3 DOSE, IM 08/16/2007,02/09/2007,12/08/2006 (INFANRIX)(6 WKS-6 YRS) DIPT HERIA, TETANUS TOXOIDS, AND ACCELLULAR PERTUSSIS VACCINE (DTAP), 0.5 ML IM 07/06/2016 (M-M-R II/PRIORIX)(12 MO UP) MEASLES, MUMPS AND RUBELLA VIRUS VACCINE, 0.5 ML IM/SUBCUT 06/24/1993,01/05/1990 (PFIZER REED)(12 YR UP PRIMA RY SERIES) COVID-19 VACCINE - EMERGENCY USE AUTHORIZATION, MRNA, REED(PF) 30 MCG/0.3 ML IM SUSP 03/26/2021 (PFIZER)(12 YR UP) COVID-19 VACCINE - EMERGENCY USE AUTHORIZATION, MRNA, [id number](PF) 30 MCG/0.3 ML IM SUSP 09/14/2020,08/26/2020 (TDVAX)(7 YRS UP) TETANUS AN D DIPHTHERIA TOXOIDS, ADSORBED (2 LF OF TETANUS TOXOID AND 2 LF OF DIPHTHERIA TOXOID), 0.5ML (PF), IM 07/11/2003 DTP IM 06/24/1993, 1,05/12/1989,03/17,1988 HIB, Unspecified Formulation 01/05/1990 Hepatitis A Vaccine 09/28/2006,11/08/2005 Hepatitis B Vaccine 02/23/2001,08/21/2000,2000 Meningococcal ACWY Vaccine, Unspecified Formulation 09/28/2006 Poliovirus Vaccine Live Oral 06/24/1993, 04/06/1990,03/17/1989,12/16 Skin Test TB 10/25/2022,07/01/2008 Family History Medical History Relation Name Comments Healthy Brother Hypertension Father Hypertension Mother Francisco Other Mother Francisco benign breast m ass Breast Cancer Other maternal aunt in her 50s Healthy Sister 1 Healthy Sister 2 Healthy Son Pheonix Relation Name Status Comments Brother Alive Father Alive Maternal Grandfather Maternal Grandmother Mother Francisco Alive Other Paternal Grandfather Paternal Grandmother Sister 1 Alive Sister 2 Alive Son Pheonix Alive Social History Tobacco Use Types Packs/Day Years Used Date Smoking Tobacco: Never Passive Smoke Exposure: Never Smokeless Tobacco: Never Tobacco Cessation:Counseling Given: No Comments:socially - hooka before Alcohol Use Standard Drinks/Week Comments Yes 1 (1 standard drink = 0.6 oz pur e alcohol) rarely Comments Yes Sex and Gender Information Value Date Recorded Sex Assigned at Not on file Legal Sex Female 4:25 AM COPY LATHE OPERATOR Gender Identity Not on file Sexual Orientation Not on file Occupation Industry Job Start Date Job End Date Not on file Not on file Not on file Not on file Not on file Not on file Not on file Not on file Last Filed Vital Signs Vital Sign Reading Time Taken Comments Blood Pressure 130/80 05/27/2024 11:04 AM CDT Pulse 107 05/27/2024 10:21 AM CDT Temperature 36.4 C (97.6 F) 05/27/2024 10:21 AM CDT Respiratory Rate 16 05/27/2024 10:21 AM CDT Oxygen Saturation 98% 05/27/2024 10:21 AM CDT Inhaled Oxygen Concentration - - Weight 120.2 kg (265 lb) 05/27/2024 10:21 AM CDT Height 175.3 cm (5' 9) 05/27/2024 10:21 AM CDT Body Mass Index 39.13 05/27/2024 10:21 AM CDT Plan of Treatment Health Maintenance Due Date Last Done Comments Preventative Visit- Commercial 02/21/2024 1 03/12/2023, 12/19/2023, 11/29/2022, Additional history exists INFLUENZA VACCINE (#1) 2024 12/19/2023 CERVICAL CANCER SCREENING 01/10/2025 PAP SMEAR 01/10/2025 01/11/2024, 06/0 03/2021, 01/27/2020, Additional history exists HPV/Cotest (21-29) 01/10/2029 01/11/2024, 0 07/22/2021, 01/27/2020, Additional history exists HPV/Cotest (30-65) 01/10/2029 01/11/2024, 0 07/22/2021, 01/27/2020, Additional history exists DTAP/TDAP/TD VACCINES (5 - T d or Tdap) 06/11/2030 06/11/2020, 07/06/2016, 10/15/2012, Additional history exists RSV VACCINE (60+ or ) (1 - 1-dose 75+ series) 10/01/2063 HEPATITIS B VACCINES Completed 02/23/2001, 08/21/2000, 06/23/2000 HPV VACCINES Completed 08/16/2007, 01/21, 12/08/2006 COVID-19 Vaccine Completed 12/19/2023, 05/2021, 09/14/2020, Additional history exists Procedures Procedure Name Priority Date/Time Associated Diagnosis Comments POC INFLUENZA A/B AND COVID-19 ANTIGENS Routine 05/27/2024 11:32 AM CDT Encounter for screening for COVID-19 CERV/VAG CYTO SCREEN PAP W/HPV Routine 01/11/2024 12:01 PM COPY LATHE OPERATOR Well woman exam with routine gynecological exam Screening for cervical cancer Special screening examination for human papillomavirus (HPV) from Last 3 Months or Most Recently Relevant to Health Maintenance Results * POC INFLUENZA A/B AND COVID-19 ANTIGENS (05/27/2024 11:32 AM CDT) Pathologist [facility] INFLUENZA A AG POC Not Detected Not Detected [facility] INTERNAL [facility]IC[facility] [place] INFLUENZA B AG POC Not Detected Not Detected [facility] D ABISAISON COVID-19 ANTIGEN POC Presumptively Negative Presumptively Negative [facility] D [facility] INTERNAL KIT QC POC Pass Pass [facility] D AMINA KIT LOT NUMBER POC [phone] [facility] Bernard HUYNH KIT EXP DATE POC 10/08/2024 [facility] Bernard HUYNH Upper Respiratory 05/27/2024 11:32 AM CDT us Laura Parikh LICENSED HOME INSPECTOR POINT OF CARE TESTING Final Resu lt [facility] CL[facility]# [id number] [place] [address] [place] [id number] * CERV/VAG CYTO SCREEN PAP W/HPV (01/11/2024 12:01 PM COPY LATHE OPERATOR) Pathologist [facility] CLINICAL INFORMATION [facility] Comment:SCREENING LAST MENSTRUAL PERIOD [facility] Comment:NONE GIVEN PREV PAP: [facility] Comment:NONE GIVEN PREV BX: [facility] Comment:NONE GIVEN SOURCE [facility] Comment:ENDOCERVIX ADEQUACY: [facility] Comment: Satisfactory for evaluation. Endocervical/transformation zone component present. Age and/or menstrual status not provided PAP INTERP [facility] Comment: Cytology Results: Negative for intraepithelial lesion or malignancy. COMMENT (PAP TEST) [facility] [place] Comment: This Pap test has been evaluated with computer assisted technology. MINE WEDGE SAWYER: Dre Arauz Comment: YQ, CT(ASCP) CT screening location: [place] [address] [place] [address] EXPLANATORY NOTE Que [employer] Group[employer]onel Arauz Comment: EXPLANATORY NOTE: The Pap is a screening test for cervical cancer. It is not a diagnostic test and is subject to false negative and false positive results. It is most reliable when a satisfactory sample, regularly obtained, is submitted with relevant clinical findings and history, and when the Pap result is evaluated along with historic and current clinical information. HPV E6/E7 Not Detected Not Detected Make MeaningLeonel Arauz Comment: Methodology: Stock Speculator-Mediated Amplification This assay detects E6/E7 viral messenger RNA (mRNA) from 14 high-risk HPV types (16,18,31,33,35,39,45,51,52,56,58,59,66,68). Cervical sources are required for HPV testing. If a vaginal source from a patient who has had a total hysterectomy with removal of cervix was submitted, please contact the testing laboratory for alternative testing options. For additional information, please refer to http://education.Kato/faq/HCX558i7 (This link if provided for information/ educational purposes only.) Test Performed at: [facility] [address] [phone] [place] MATHIS Genital SWAB OF ENDOCERVIX / Unknown 01/11/2024 12:01 PM COPY LATHE OPERATOR 01/12/2024 1:29 AM COPY LATHE OPERATOR Ann Bryant NP PATHOLOGY/CYTOLOGY ORDERABLE S Final Result [facility] [phone] [place] [address] [address] [phone] from Last 3 Months or Most Recently Relevant to Health Maintenance Insurance [place] [address] [place] [address] [facility] CHOICE [facility] [address] [place] [address] Advance Directives For more information, please contact: [phone] * Full Code (Latest Code Status on File) Date Activated Date Inactivated Comments 08/04/2020 12:32 PM 08/04/2020 9:32 PM * Full Code Date Activated Date Inactivated Comments 07/24/2020 6:52 PM 07/24/2020 11:05 PM * Full Code Date Activated Date Inactivated Comments 07/10/2020 11:53 PM 07/11/2020 6:30 AM * Full Code Date Activated Date Inactivated Comments 06/09/2020 7:05 AM 06/09/2020 10:01 AM * Full Code Date Activated Date Inactivated Comments 05/14/2020 10:11 AM 05/14/2020 2:33 PM Care Teams Cab Starter Relationship Specialty Start [place] [address] [address] PCP - General Internal Medicine 01/24/22
--- OUTSIDE RECORDS SUMMARY | 2024-08-26 05:50 | XMS_ITS | Clinical Summary ---
Author Organization [facility] Address [facility] [address] [facility] [place] [address] Care Team Providers Care Corrosion Control Technician Name Role Phone None, Provider MD Primary Care Provider Unavaila ble Allergies Active Allergy Reactions Criticality Noted Date Comments Etonogestrel-Ethinyl Estradiol Hives 10/01 Medications labetalol (NORMODYNE) 100 MG tablet Take 0.5 tablets (50 mg total) by mouth 2 (two) times daily. Active Social History Tobacco Use Types Packs/Day Years Used Date Smoking Tobacco: Never Smokeless Tobacco: Never Tobacco Cessation:Counseling Given: Not Answered Alcohol Use Standard Drinks/Week Comments Not Currently 0 (1 standard drink = 0.6 oz pur e alcohol) Comments Unknown Sex and Gender Information Value Date Recorded Sex Assigned at Not on file Legal Sex Female 8:56 AM CDT Gender Identity Not on file Sexual Orientation Not on file Last Filed Vital Signs Vital Sign Reading Time Taken Comments Blood Pressure 139/80 10/01/2022 12:00 PM CDT Pulse 87 10/01/2022 12:00 PM CDT Temperature 36.6 C (97.9 F) 10/01/2022 8:59 AM CDT Respiratory Rate 16 10/01/2022 12:00 PM CDT Oxygen Saturation 99% 10/01/2022 12:00 PM CDT Inhaled Oxygen Concentration - - Weight 122.5 kg (270 lb 1 oz) 10/01/2022 8:59 AM CDT Height 175.3 cm (5' 9) 10/01/2022 8:59 AM CDT Body Mass Index 39.88 10/01/2022 8:59 AM CDT Plan of Treatment Health Maintenance Due Date Last Done Comments Cervical Cancer Screening Pap Smear (Age 30 to 64) Every 3 Years 1988 Annual Physical 10/01/1991 Hepatitis C 2006 Cervical Cancer Screening Pap with HPV Testing (Age 30 to 64) Every 5 Years 2018 Cervical Cancer Screening with HPV 2018 COVID-19 Vaccine ( season) 2023 03/26/2021, 09/14/2020, 08/26/2020 DTaP, Tdap and Td Vaccines (5 - Td or Tdap) 06/11/2030 06/11/2020, 07/06/2016, 10/15/2012, Additional history exists Hepatitis B Vaccines Completed 02/23/2001, 08/21/2000, 06/23/2000 Meningococcal Vaccine Aged Out 09/28/2006 No anushka bobby eligible based on patient's age to complete this topic HPV Vaccines Completed 08/16/2007, 01/21, 12/08/2006 Meningococcal B Vaccine Aged Out No l onger eligible based on patient's age to complete this topic Pneumococcal Vaccine: Pediatrics (0 to 5 Years) and At-Risk Patients (6 to 49 Years) Aged Out No longer eligible based on patient's age to complete this topic RSV Immunizations Under 20 Months Aged Out No longer eligible based on patient's age to complete this topic [place] [address] [facility] Care Teams Corrosion Control Technician Relationship Specialty Start Date End Date None, Provider, MD PCP - General UNKNOWN PHYSICIAN SPECIALTY 10/01/22
--- OUTSIDE RECORDS SUMMARY | 2024-08-26 05:50 | XMS_ITS | Encounter Summary ---
Author Organization [facility] Address [address] [place] [address] Care Team Providers Care Chip Machine Operator Name Role Phone VenturaFarhad DO Primary Care Provider Encounter Details Date Type Department Care Team (Late st Contact Info) Description 2005 Outpatient Historical [facility] [address] [place] [address] [place] [address] [place] [address] Social History Tobacco Use Types Packs/Day Years Used Date Smoking Tobacco: Never Assessed Comments Unknown Sex and Gender Information Value Date Recorded Sex Assigned at Not on file Legal Sex Female 4:25 AM UNDERWRITING SPECIALIST Gender Identity Not on file Sexual Orientation Not on file documented as of this encounter Plan of Treatment Not on file documented as of this encounter Visit Diagnoses Not on filedocumented in this encounter Additional Health Concerns Infection Onset Date Last Indicated Resolved Time R/O COVID-19 03/17/2021 03/18/2021 03/19/2021 1:53 AM UNDERWRITING SPECIALIST documented as of this encounter Care Teams Chip Machine Operator Relationship Specialty [place] [address] [place] [address] PCP - General Internal Medicine 01/24/22 documented as of this encounter
--- OUTSIDE RECORDS SUMMARY | 2024-08-26 05:50 | XMS_ITS | Encounter Summary ---
Author Organization [facility] Address [address] [place] [address] Care Team Providers Care Stopping Builder Name Role Phone VenturaFarhad DO Primary Care Provider Encounter Details Date Type Department Care Team (Late st Contact Info) Description 10/19/2001 Outpatient Historical [facility] [address] [place] [address] [place] [address] [place] [address] Social History Tobacco Use Types Packs/Day Years Used Date Smoking Tobacco: Never Assessed Comments Unknown Sex and Gender Information Value Date Recorded Sex Assigned at Not on file Legal Sex Female 4:25 AM VP MARKETING SERVICES AND SKIN Gender Identity Not on file Sexual Orientation Not on file documented as of this encounter Plan of Treatment Not on file documented as of this encounter Visit Diagnoses Not on filedocumented in this encounter Additional Health Concerns Infection Onset Date Last Indicated Resolved Time R/O COVID-19 03/17/2021 03/18/2021 03/19/2021 1:53 AM VP MARKETING SERVICES AND SKIN documented as of this encounter Care Teams Stopping Builder Relationship Specialty [place] [address] [place] [address] PCP - General Internal Medicine 01/24/22 documented as of this encounter
--- OUTSIDE RECORDS SUMMARY | 2024-08-26 05:50 | XMS_ITS | Encounter Summary ---
Author Organization [email or web address] Address [address] [place] [address] Care Team Providers Care Flanging Operator Name Role Phone VenturaFarhad DO Primary Care Provider Encounter Details Date Type Department Care Team (Late st Contact Info) Description 05/22/2000 Outpatient Historical [facility] [address] [place] [address] [place] [address] [place] [address] Social History Tobacco Use Types Packs/Day Years Used Date Smoking Tobacco: Never Assessed Comments Unknown Sex and Gender Information Value Date Recorded Sex Assigned at Not on file Legal Sex Female 4:25 AM COST SPECIALIST Gender Identity Not on file Sexual Orientation Not on file documented as of this encounter Plan of Treatment Not on file documented as of this encounter Visit Diagnoses Not on filedocumented in this encounter Additional Health Concerns Infection Onset Date Last Indicated Resolved Time R/O COVID-19 03/17/2021 03/18/2021 03/19/2021 1:53 AM COST SPECIALIST documented as of this encounter Care Teams Flanging Operator Relationship Specialty [place] [address] [place] [address] PCP - General Internal Medicine 01/24/22 documented as of this encounter
--- OUTSIDE RECORDS SUMMARY | 2024-08-26 05:50 | XMS_ITS | Encounter Summary ---
Author Organization [facility] Address [address] [place] [address] Care Team Providers Care Asparagus Buncher Name Role Phone VenturaFarhadda DO Primary Care Provider Encounter Details Date Type Department Care Team (Late st Contact Info) Description 12/08/2006 Outpatient Historical [facility] [address] [place] [address] [place] [address] [place] [address] Social History Tobacco Use Types Packs/Day Years Used Date Smoking Tobacco: Never Assessed Comments Unknown Sex and Gender Information Value Date Recorded Sex Assigned at Not on file Legal Sex Female 4:25 AM FURNITURE REPAIRER Gender Identity Not on file Sexual Orientation Not on file documented as of this encounter Plan of Treatment Not on file documented as of this encounter Visit Diagnoses Not on filedocumented in this encounter Additional Health Concerns Infection Onset Date Last Indicated Resolved Time R/O COVID-19 03/17/2021 03/18/2021 03/19/2021 1:53 AM FURNITURE REPAIRER documented as of this encounter Care Teams Asparagus Buncher Relationship Specialty [place] [address] [place] [address] PCP - General Internal Medicine 01/24/22 documented as of this encounter
--- OUTSIDE RECORDS SUMMARY | 2024-08-26 05:50 | XMS_ITS | Encounter Summary ---
Author Organization [facility] Address [address] [place] [address] Care Team Providers Care Biology Internship Name Role Phone VenturaFarhad DO Primary Care Provider Encounter Details Date Type Department Care Team (Late st Contact Info) Description 11/02/2004 Outpatient Historical [facility] [address] [place] [address] [place] [address] [place] [address] Social History Tobacco Use Types Packs/Day Years Used Date Smoking Tobacco: Never Assessed Comments Unknown Sex and Gender Information Value Date Recorded Sex Assigned at Not on file Legal Sex Female 4:25 AM VAMP WETTER Gender Identity Not on file Sexual Orientation Not on file documented as of this encounter Plan of Treatment Not on file documented as of this encounter Visit Diagnoses Not on filedocumented in this encounter Additional Health Concerns Infection Onset Date Last Indicated Resolved Time R/O COVID-19 03/17/2021 03/18/2021 03/19/2021 1:53 AM VAMP WETTER documented as of this encounter Care Teams Biology Internship Relationship Specialty [place] [address] [place] [address] PCP - General Internal Medicine 01/24/22 documented as of this encounter
--- OUTSIDE RECORDS SUMMARY | 2024-08-26 05:50 | XMS_ITS | Encounter Summary ---
Author Organization [facility] Address [address] [place] [address] Care Team Providers Care Jammer Operator Name Role Phone VenturaFarhad DO Primary Care Provider Encounter Details Date Type Department Care Team (Late st Contact Info) Description 05/03/2002 Outpatient Historical [facility] [address] [place] [address] [place] [address] [place] [address] Social History Tobacco Use Types Packs/Day Years Used Date Smoking Tobacco: Never Assessed Comments Unknown Sex and Gender Information Value Date Recorded Sex Assigned at Not on file Legal Sex Female 4:25 AM BABY SITTER Gender Identity Not on file Sexual Orientation Not on file documented as of this encounter Plan of Treatment Not on file documented as of this encounter Visit Diagnoses Not on filedocumented in this encounter Additional Health Concerns Infection Onset Date Last Indicated Resolved Time R/O COVID-19 03/17/2021 03/18/2021 03/19/2021 1:53 AM BABY SITTER documented as of this encounter Care Teams Jammer Operator Relationship Specialty [place] [address] [place] [address] PCP - General Internal Medicine 01/24/22 documented as of this encounter
--- OUTSIDE RECORDS SUMMARY | 2024-08-26 05:50 | XMS_ITS | Encounter Summary ---
Author Organization [facility] Health Address [address] [place] [address] Care Team Providers Care Nut Process Helper Name Role Phone Unavailable Primary Care Provider Unavailabl e Prior Encounters Date Type Department Care Team Description 03/11/2019 Converted CPS Chart Documents [facility] [address] [place] [address] <No scans attached> 03/11/2019 Converted 13x Documents [facility] [address] [place] [address] <No scans attached> Plan of [...] 19 ENDODONTIC THERAPY, MOLAR TOOTH (EXCLUDING FINAL ADVENTISM) Routine 09/03/2018 2:00 AM CDT PANORAMIC RADIOGRAPHIC [...]
--- OUTSIDE RECORDS SUMMARY | 2024-08-26 05:50 | XMS_ITS | Encounter Summary ---
Author Organization [facility] Address [address] [place] [address] Care Team Providers Care Loan Analyst Name Role Phone VenturaFarhad DO Primary Care Provider Encounter Details Date Type Department Care Team (Late st Contact Info) Description 07/02/2002 Outpatient Historical [facility] [address] [place] [address] [place] [address] [place] [address] Social History Tobacco Use Types Packs/Day Years Used Date Smoking Tobacco: Never Assessed Comments Unknown Sex and Gender Information Value Date Recorded Sex Assigned at Not on file Legal Sex Female 4:25 AM WEED SCIENCE RESEARCH TECHNICIAN Gender Identity Not on file Sexual Orientation Not on file documented as of this encounter Plan of Treatment Not on file documented as of this encounter Visit Diagnoses Not on filedocumented in this encounter Additional Health Concerns Infection Onset Date Last Indicated Resolved Time R/O COVID-19 03/17/2021 03/18/2021 03/19/2021 1:53 AM WEED SCIENCE RESEARCH TECHNICIAN documented as of this encounter Care Teams Loan Analyst Relationship Specialty [place] [address] [place] [address] PCP - General Internal Medicine 01/24/22 documented as of this encounter
--- OUTSIDE RECORDS SUMMARY | 2024-08-26 05:50 | XMS_ITS | Encounter Summary ---
Author Organization [facility] Address [address] [place] [address] Care Team Providers Care Crate Liner Name Role Phone VenturaFarhad boone DO Primary Care Provider Encounter Details Date Type Department Care Team (Late st Contact Info) Description 05/17/2001 Outpatient Historical [facility] [address] [place] [address] Zay Chilel MD [address] [place] [address] Social History Tobacco Use Types Packs/Day Years Used Date Smoking Tobacco: Never Assessed Comments Unknown Sex and Gender Information Value Date Recorded Sex Assigned at Not on file Legal Sex Female 4:25 AM DIRECTOR OF CASEWORK DEPARTMENT Gender Identity Not on file Sexual Orientation Not on file documented as of this encounter Plan of Treatment Not on file documented as of this encounter Visit Diagnoses Not on filedocumented in this encounter Additional Health Concerns Infection Onset Date Last Indicated Resolved Time R/O COVID-19 03/17/2021 03/18/2021 03/19/2021 1:53 AM DIRECTOR OF CASEWORK DEPARTMENT documented as of this encounter Care Teams Crate Liner Relationship Specialty Start [place] [address] [place] [address] PCP - General Internal Medicine 01/24/22 documented as of this encounter
--- OUTSIDE RECORDS SUMMARY | 2024-08-26 05:50 | XMS_ITS | Encounter Summary ---
Author Organization [facility] Address [address] [place] [address] Care Team Providers Care Internal Medicine Physician Assistant Name Role Phone VenturaFarhad DO Primary Care Provider Encounter Details Date Type Department Care Team (Late st Contact Info) Description 03/09/2004 Outpatient Historical [facility] [address] [place] [address] [place] [address] [place] [address] Social History Tobacco Use Types Packs/Day Years Used Date Smoking Tobacco: Never Assessed Comments Unknown Sex and Gender Information Value Date Recorded Sex Assigned at Not on file Legal Sex Female 4:25 AM EXHAUST WORKER Gender Identity Not on file Sexual Orientation Not on file documented as of this encounter Plan of Treatment Not on file documented as of this encounter Visit Diagnoses Not on filedocumented in this encounter Additional Health Concerns Infection Onset Date Last Indicated Resolved Time R/O COVID-19 03/17/2021 03/18/2021 03/19/2021 1:53 AM EXHAUST WORKER documented as of this encounter Care Teams Internal Medicine Physician Assistant Relationship Specialty [place] [address] [place] [address] PCP - General Internal Medicine 01/24/22 documented as of this encounter
--- OUTSIDE RECORDS SUMMARY | 2024-08-26 05:50 | XMS_ITS | Encounter Summary ---
Author Organization [facility] Address [address] [place] [address] Care Team Providers Care Signal Tower Director Name Role Phone VenturaFarhad DO Primary Care Provider Encounter Details Date Type Department Care Team (Late st Contact Info) Description 12/17/1999 Outpatient Historical [facility] [address] [place] [address] [place] [address] [place] [address] Social History Tobacco Use Types Packs/Day Years Used Date Smoking Tobacco: Never Assessed Comments Unknown Sex and Gender Information Value Date Recorded Sex Assigned at Not on file Legal Sex Female 4:25 AM EMULSION COATER Gender Identity Not on file Sexual Orientation Not on file documented as of this encounter Plan of Treatment Not on file documented as of this encounter Visit Diagnoses Not on filedocumented in this encounter Additional Health Concerns Infection Onset Date Last Indicated Resolved Time R/O COVID-19 03/17/2021 03/18/2021 03/19/2021 1:53 AM EMULSION COATER documented as of this encounter Care Teams Signal Tower Director Relationship Specialty [place] [address] [place] [address] PCP - General Internal Medicine 01/24/22 documented as of this encounter
[2024-08-26 06:09] VITALS: BMI 40.6
--- NOTE | 2024-08-26 06:09 | OBADM ---
This patient, Zohreh Kevin, admitted to the OB room OB Post 115 for observation. Patient/family oriented to hospital policies and general routines including ID bracelet, bed and alarms, visiting hours, pain management, procedures, bathroom and other care routines, personal items, smoking policy, room service/diet, and visiting hours. Patient/Family are encouraged to report perceived risks to care and to ask questions if they do not understand what they are told or what they should do.
[2024-08-26 06:15] VITALS: TEMP 36.3
[2024-08-26 06:21] VITALS: BP 143/83; PULSE 86
[2024-08-26 06:31] VITALS: BP 145/83; PULSE 89
[2024-08-26 06:37] LABS: Add Urine Microscopic? NO; Appearance Urine Clear (Clear); Glucose Urine UA Negative (Negative); Leukocyte Esterase Ur Negative LEU/UL (Negative); Nitrate Urine Negative (Negative); Specific Grav Ur 1.012 (1.001-1.035)
[2024-08-26 06:56] VITALS: BMI 40.6
[2024-08-26 07:01] VITALS: BP 139/84; PULSE 89
--- NOTE | 2024-08-27 07:52 | PM.OBTRLD ---
OB - Triage/Final Diagnosis Visit Information Reason for evaluation: other (vaginal pain) Comments/Additional reasons for admission: I have assessed the risk for this patient, Zohreh Kevin, and determined that she would benefit from observation care. Evaluation Laboratory results: Laboratory Tests 08/26/24 06:14 Urine Color Yellow Urine Appearance Clear Urine pH 7.0 Ur Specific Reserve 1.012 Urine Protein Negative Urine Glucose (UA) Negative Urine Ketones Negative Ur Blood (Man) Negative Urine Nitrate Negative Urine Bilirubin Negative Urine Urobilinogen 0.2 Leukocyte Esterase Rfl Negative
== END 2024-08-26 07:45 | disposition home or self-care (01) ==
PROVIDERS: Admitting Provider Obstetrics & Gynecology Gynecology; Visit Provider Obstetrics & Gynecology Gynecology
DX: O26.892 Other specified pregnancy related conditions, second trimester (principal); R10.2 Pelvic and perineal pain; Z3A.27 27 weeks gestation of pregnancy
CPT/HCPCS: 81003; G0378; G0379

== ENCOUNTER 2024-09-24 18:31 | Observation (INO) | payer OTHER, SELFPAY ==
--- OUTSIDE RECORDS SUMMARY | 2024-09-24 18:40 | XMS_ITS ---
Author Organization [facility] Source Produ ction (ClinicalSummary Clone) Address Unknown Care Team Providers Care Waiter/Waitress Cafeteria Name Role Phone Unavailable Primary Care Physician Unavailab le Results * [UNITY] ANEUPLOIDY NIPT Performed by: [facility] Component Value Range Date Fraction 5.1% 05/16/2024 05 :47 am UTC Sex Chromosome Aneuploidy NOT DETECTED 05:47 am UTC Monosomy X LOW RISK <1 in 10,000 2024 05:47 am UTC Trisomy 13 LOW RISK <1 in 10,000 2024 05:47 am UTC Trisomy 18 LOW RISK <1 in 10,000 2024 05:47 am UTC Trisomy 21 LOW RISK <1 in 10,000 2024 05:47 am UTC Sex MALE 05/16/2024 05:4 7 am UTC Gestation GONCALVES 05/17/19 05:47 am UTC For detailed report, see PDF See PDF 05/16/2024 05:47 am UTC 05/16/2024 05:4 7 am UT Social History Observation Value Start Date End Date
--- OUTSIDE RECORDS SUMMARY | 2024-09-24 18:40 | XMS_ITS | Clinical Summary ---
Author Organization [facility] Address [facility] [place] [address] Care Team Providers Care Hairspring Truer Name Role Phone None, Provider MD Primary [...] patient's age to complete this topic Insurance [address] [place] [address] [facility] Care Teams Hairspring Truer Relationship Specialty Start Date End Date None, Provider, MD PCP - General UNKNOWN PHYSICIAN SPECIALTY 10/01/22
--- OUTSIDE RECORDS SUMMARY | 2024-09-24 18:40 | XMS_ITS | Clinical Summary ---
Author Organization [facility] Address [address] [address] Care Team Providers Care Instructor Business Education Name Role Phone Unknown, Provider Primary Care Provider Unavaila ble Source Comments [facility],non-owned Affiliates and Associated Physician Practices is amultiple site organization consisting of ambulatory clinics and hospital sitesin [place], [place], [place] and [place]. This disclosure is being madepursuant to the Care Everywhere program and may not contain all information available regarding this patient. Last updated 17.[facility] Allergies Active Allergy Reactions Criticality Noted Date [...] Kevin was screened for depression using the [place] Depression Scale (EPDS) at her [facility] initial evaluation on 08/22/2024. Her initial score at baseline was 4. Based off of her score of 4, Zohreh does not warrant follow up. Patient will continue to be screened throughout , at intervals no closer than two weeks, for continued surveillance and early identification of depression until delivery. Patient reports mental health history. Diagnoses include anxiety. CORRECTION- abnormality in (HCC)- Pelvic Kidney 07/30/2024 Overview (08/26/2024): Images from the original note were not included. [facility] PATIENT--PLEASE CALL [phone] (ex 2) IF TRIAGED OR ADMITTED Care Provider: Dr. Davis; [facility] consultants involved: Marissa- Nurse Navigator; Dr. 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 Villa: -recommend renal ultrasound in first week of life; -follow up with pediatric nephrology at 1 month of life with repeat renal ultrasound; -call office with interval concerns. Entry Level Drafter: Dr. Mckeon through [facility] Concerns: 08/22/2024-Patient with history of anxiety- does take medication Care plan based on evaluation and is subject to change based on assessment. See Images or Cardiac under Chart Review for US/ ECHO/ MRI reports. Estimated Date of Delivery Comme nts Yes 11/24/2024 Based on Ultraso und Encounters Date Type Department Care Team Description 09/17/2024 7:30 AM CDT - 09/17/2024 11:59 PM CDT Hospital Encounter [facility] [address] [place] [address] Blayne Mancera MD Discharge Disposition: Home or Self Care 08/22/2024 12:00 PM CDT - 08/22/2024 11:59 PM CDT Hospital Encounter [facility] [address] [address] Manny Miles MD WATER PLANT PUMP OPERATOR SUPERVISOR Discharge Disposition: Home or Self Care 08/21/2024 Telephone [facility] Care [address] [address] Lorena Jarrett Reminder Call 08/01/2024 7:30 AM CDT - 08/01/2024 11:59 PM CDT Hospital Encounter [facility] [address] [place] [address] Farhad Casarez MD Dildy, Gary A, MD Discharge Disposition: Home or Self Care 07/29/[address] [address] Makeda Garcia, farm tractor operator 07/29/[address] [address] Makeda Garcia, farm tractor operator 07/26/2024 Telephone [facility] [address] [address] Makeda Garcia, farm tractor operator 07/05/2024 8:53 AM CDT - 07/05/2024 11:59 PM CDT Hospital Encounter [facility] [address] [place] [address] Blayne Mancera MD Discharge Disposition: Home or Self Care 07/05/2024 7:30 AM CDT - 07/05/2024 8:52 AM CDT Hospital Encounter [facility] [address] [place] [address] Blayne Mancera MD Discharge Disposition: Home or Self Care from Last 3 Months Social History Tobacco Use Types Packs/Day Years Used Date Smoking Tobacco: Never Assessed Hunger Vital Sign Answer Date Recorded Within the past 12 months, y ou worried that your food would run out before you got the money to buy more. Never true 07/03/20 25 Within the past 12 months, t he food you bought just didn't last and you didn't have money to get more. Never true 08/22/2024 [place] Depression Scale Answer Date Recorded [place] Depression Scale Total 4 08/22/2024 The thought of harming myself has occurred to me . Never 08/22/2024 Estimated Date of Delivery Comme nts Yes 11/24/2024 Based on Ultraso und Sex and Gender Information Value Date Recorded Sex Assigned at Not on file Legal Sex Female 6:23 AM WOODENWARE ASSEMBLER Gender Identity Not on file Sexual Orientation [...] Care Team (Late st Contact Info) Description 10/15/2024 7:30 AM CDT Appointment [facility] [address] [place] [address] Health Maintenance Due Date Last Done Comments HIV SCREENING 10/01/2003 HEPATITIS C SCREENING 09/26/2006 DTAP/TDAP/TD VACCINES (1 - Tdap) 10/01/2007 HEPATITIS B VACCINE (1 of 3 - 19+ 3-dose series) 10/01/2007 HPV VACCINE (1 - 3-dose SCDM series) 10/01/2015 COVID-19 VACCINE (4 - 2023-2 5 season) 2023 03/26/2021, 09/14/2020, 08/26/2020 OB-ONE HOUR GLUCOSE 08/18/2024 OB-TDAP CURRENT 08/25/20242020, 10/15/2012 OB-RHOGAM INJECTION 09/01/2024 INFLUENZA VACCINE (#1) 2024 Respiratory Syncytial Virus (RSV) Vaccine Pt: or over 60 yrs (1 - Risk 1-dose series) 10/21/2024 PAP SMEAR 01/10/2027 01/11/2024 ZOSTER VACCINE (1 of 2) 2038 DEPRESSION SCREENING Completed 08/22/2024 HIB VACCINE Aged Out No longer eligi [...] Associated Diagnosis Comments SONOGRAM - COMPLETE Routine 09/17/2024 7 :49 AM CDT 30 weeks gestation of (HCC) CORRECTION- abnormality in (HCC)- Pelvic Kidney Encounter for ultrasound to assess growth (HCC) SONOGRAM - COMPLETE Routine 08/22/2024 1 2:38 [...] (GDM) from Last 3 Months Results * Sonogram - Complete (09/17/2024 7:49 AM CDT) Only the most recent of4 resultswithin the time period is included. Linked Results Indication ======== Advanced maternal age (AMA), multigravida Maternal obesity complicating , class 2 (BMI 35.0 - 39.9) abnormality, unspecified pelvic kidney Anxiety on Zoloft , Prior C/S History ====== OB History 6. Para 2 [id number] 1. miscarriage 2014. Details: 1st trimester 2. [...] Date Details Gest. age AUSTIN LMP 02/15/2024 30 w + 5 d 11/21/2024 Stated [place] 30 w + 5 d 11/21/2024 Previous U/S 04/11/2024 GA, GA 7 w + 4 d 30 w + 2 d 11/24/2024 U/S 09/17/2024 based upon AC, BPD, Femur, HC 32 w + 5 d 11/07/2024 Assigned dating based on the LMP, selected on 07/05/2024 30 w + 5 d 11/21/2024 General Evaluation Cardiac activity present. FHR 139 bpm. Presentation: transverse Placenta: Placental site: anterior Amniotic fluid: Amount of AF: normal. MVP 6.6 cm. LASHANDA 16.9 cm. Q1 5.3 cm, Q2 1.3 cm, Q3 3.7 cm, Q4 6.6 cm Biometry BPD 78.9 mm 31w 5d 69% Hadlock HC 292.8 mm 32w 2d 59% Hadlock AC 312.8 mm 35w 2d >99% Hadlock Femur 61.0 mm 31w 5d 63% Hadlock Humerus 57.2 mm 33w 2d 97% Jovan HC / AC 0.94 Weight Calculation: EFW 2,232 g >99% Hadlock EFW (lb,oz) 4 lb 15 oz EFW by Hadlock ([id number]) LGA Growth Overview Exam date GA BPD (mm) HC (mm) AC (mm) FL (mm) HL (mm) EFW (g) 07/05/2024 20w 1d 47.6 61% 180.9 59% 151.1 51% 31.9 34% 33.4 89% 338 48% 08/01/2024 24w 0d 58.8 45% 219 30% 202.7 69% 41.8 25% 42.4 84% 679 54% 08/22/2024 27w 0d 69.5 70% 255 45% 240.9 81% 50.9 43% 47.8 77% 1145 74% 09/17/2024 30w 5d 78.9 69% 292.8 59% 312.8 >99% 61 63% 57.2 97% 2232 >99% Anatomy The following structures appear abnormal: Abdomen Kidneys: left pelvic kidney. The following structures appear normal: Abdomen Stomach. Bladder. sex: male. Impression ========= Single, live, intrauterine at 30w5d The size is LGA The previously noted left pelvic kidney is again seen with no major malformations seen within the limits of ultrasound The amniotic fluid volume is normal Comment ======== ultrasound alone cannot detect all structural, genetic, or functional , placental, or maternal abnormalities Follow-up ======== Ultrasound in 4-6 weeks for serial growth assessment Begin weekly testing at 36 weeks gestation Coding ====== Procedures [id number]: US Preg Uterus Follow Up Synker PACS Anatomical Region Laterality Modality Other 09/17/2024 7:49 AM CDT us Sarita Davis MD MFM ORDERABLES Edited Resu lt - Final from Last 3 Months Insurance [employer] [facility] Care Teams Instructor Business Education Relationship Specialty Start Date End Date Unknown, Provider PCP - General 07/05/24
--- OUTSIDE RECORDS SUMMARY | 2024-09-24 18:40 | XMS_ITS ---
Author Organization [facility] Source Produ ction (ClinicalSummary Clone) Address Unknown Care Team Providers Care Cake Washer Name Role Phone Unavailable Primary Care Physician Unavailab le Results * [UNITY] CARRIER SCREEN Performed by: [facility] Component Value Range Date Sickle Cell Disease/Beta-Thalassemia/Hemo globinopathies carrier screen NEGATIVE 05/20/2024 11:22 pm UT Alpha-Thalassemia carrier screen NEGATIVE 05/20/2024 11:22 pm UT Cystic Fibrosis carrier screen NEGATIVE 05/20/2024 11:22 pm UT Spinal Muscular Atrophy carrier screen NEGATIVE 2 SMN1 copies, SNP not present 05/20/2024 11:22 pm UT For detailed report, see PDF See PDF 05/20/2024 11:22 pm UTC 05/20/2024 11:2 2 pm [facility] Social History Observation Value Start Date End Date
--- OUTSIDE RECORDS SUMMARY | 2024-09-24 18:40 | XMS_ITS | Clinical Summary ---
Author Organization [facility] Address [address] [place] [address] Phone Care Team Providers Care Tool Polisher Name Role Phone Farhad Whitehead DO Primary [...] 04/01/2024 Active fluticasone propionate (FLONASE) 50 mcg/spray [place], Suspension nasal inhalerIndicatio ns:Viral upper respiratory infection [...] different from the original. Primary Care: Glen Uribe MD Referring Provider: No referring provider defined [...] 11/30/19 23 Leakage of amniotic fluid 08/19/2020 INTERACTIVE MEDIA SPECIALIST , GDMA1, Girl 08/19/2020 023 Threatened premature labor in third trimester 08/19/19 21 11/29/2022 arrhythmia affecting p regnancy, antepartum 08/04/2020 11/29/2022 headache in third trimester 07/30/2020 11/29/2022 Pain of round ligament during 05/14/2020 11/29/2022 related pelvic inga n in first trimester, antepartum 03/22/2020 11/29/2022 Bacterial vaginitis 03/22/2020 11/30/19 23 History of gestational diabe daphne in prior , currently in second trimester [...] Encounters Date Type Department Care Team Description 09/04/2024 External Device Data [facility]CTION Provider, Abstract 09/04/2024 External Device Data [facility] ABSTRACTION Provider, Abstract 08/07/2024 External Device Data [facility]CTION Provider, Abstract 07/23/2024 External Device Data [facility]CTION Provider, Abstract 07/11/2024 External Device Data [facility] AB[facility]CTION Provider, Abstract 07/11/2024 External Device Data [facility] ABSTRACTION Provider, Abstract 06/25/2024 External Device Data [facility]CTION Provider, Abstract from Last 3 Months Immunizations Immunization Administration [...] COVID-19 VACCINE - EMERGENCY USE AUTHORIZATION, MRNA, [id number](PF) 30 MCG/0.3 ML IM SUSP 09/14/2020,08/26/2020 (TDVAX)(7 [...] on file Legal Sex Female 4:25 AM GENERAL REPAIRER Gender Identity Not on file Sexual [...] Procedure Name Priority Date/Time Associated Diagnosis Comments CERV/VAG CYTO SCREEN PAP W/HPV Routine 01/11/2024 12:01 PM GENERAL REPAIRER Well woman exam with routine gynecological exam Screening for cervical cancer Special screening examination for human papillomavirus (HPV) from Last 3 Months or Most Recently Relevant to Health Maintenance Results * CERV/VAG CYTO SCREEN PAP W/HPV (01/11/2024 12:01 PM GENERAL REPAIRER) CLINICAL INFORMATION [facility] [place] Comment:SCREENING LAST MENSTRUAL PERIOD [facility] [place] Comment:NONE GIVEN PREV PAP: [facility] [place] Comment:NONE GIVEN PREV BX: [facility] [place] Comment:NONE GIVEN SOURCE [facility] [place] Comment:ENDOCERVIX ADEQUACY: [facility] [place] Comment: Satisfactory for evaluation. Endocervical/transformation zone component present. Age and/or menstrual status not provided PAP INTERP [facility] [place] Comment: Cytology Results: Negative for intraepithelial lesion or malignancy. COMMENT (PAP TEST) [facility] [place] Comment: This Pap test has been evaluated with computer assisted technology. USED EQUIPMENT SALES REPRESENTATIVE: [facility] [place] Comment: YQ, CT(ASCP) CT screening location: [place] [address] [place] [address] EXPLANATORY NOTE [facility] [place] Comment: EXPLANATORY NOTE: The Pap is a [...] information. HPV E6/E7 Not Detected Not Detected [facility] [place] Comment: Methodology: Labor Economist-Mediated Amplification This assay detects E6/E7 viral messenger RNA (mRNA) from 14 high-risk HPV types (16,18,31,33,35,39,45,51,52,56,58,59,66,68). Cervical sources are required for HPV testing. If a vaginal source from a patient who has had a total hysterectomy with removal of cervix was submitted, please contact the testing laboratory for alternative testing options. For additional information, please refer to http://education.I Do Now I Don't/faq/WJX918w0 (This link if provided for information/ educational purposes only.) Test Performed at: [facility] [address] [place] [address] Duglas MATHIS Genital SWAB OF ENDOCERVIX / Unknown 01/11/2024 12:01 PM GENERAL REPAIRER 01/12/2024 1:29 AM GENERAL REPAIRER us Ann Bryant INTERACTIVE MEDIA SPECIALIST PATHOLOGY/CYTOLOGY ORDERABLE S Final Result [facility] [phone] [facility] [address] [place] [address] from Last 3 Months or Most Recently Relevant to Health Maintenance Insurance [employer] CHOICE [employer] Choice CHOICE [employer] [facility] [id number] Advance Directives For more information, please contact: [phone] * Full Code (Latest Code Status on [...] 10:11 AM 05/14/2020 2:33 PM Care Teams Tool Polisher Relationship Specialty [place] [address] [facility] [address] [place] [address] PCP - General Internal Medicine 01/24/22
--- OUTSIDE RECORDS SUMMARY | 2024-09-24 18:41 | XMS_ITS | Encounter Summary ---
Author Organization [facility] Address [address] [place] [address] Care Team Providers Care Rock Cutter Name Role Phone VenturaFarhad DO Primary Care Provider Encounter Details Date Type Department Care Team (Late st Contact Info) Description 11/08/2005 Outpatient Historical [facility] [address] [place] [address] [place] [address] [place] [address] Social History Tobacco Use Types Packs/Day Years Used Date Smoking Tobacco: Never Assessed Comments Unknown Sex and Gender Information Value Date Recorded Sex Assigned at Not on file Legal Sex Female 4:25 AM VICE CHAIRMAN Gender Identity Not on file Sexual Orientation Not on file documented as of this encounter Plan of Treatment Not on file documented as of this encounter Visit Diagnoses Not on filedocumented in this encounter Additional Health Concerns Infection Onset Date Last Indicated Resolved Time R/O COVID-19 03/17/2021 03/18/2021 03/19/2021 1:53 AM VICE CHAIRMAN documented as of this encounter Care Teams Rock Cutter Relationship Specialty [place] [address] [place] [address] PCP - General Internal Medicine 01/24/22 documented as of this encounter
--- OUTSIDE RECORDS SUMMARY | 2024-09-24 18:41 | XMS_ITS | Encounter Summary ---
Author Organization [facility] Address [address] [place] [address] Care Team Providers Care Hospitalist Physician Name Role Phone VenturaFarhad DO Primary Care Provider Encounter Details Date Type Department Care Team (Late st Contact Info) Description 05/03/2002 Outpatient Historical [facility] [address] [place] [address] [place] [address] [place] [address] Social History Tobacco Use Types Packs/Day Years Used Date Smoking Tobacco: Never Assessed Comments Unknown Sex and Gender Information Value Date Recorded Sex Assigned at Not on file Legal Sex Female 4:25 AM CO SUPERVISOR GROUNDS AND LANDSCAPE Gender Identity Not on file Sexual Orientation Not on file documented as of this encounter Plan of Treatment Not on file documented as of this encounter Visit Diagnoses Not on filedocumented in this encounter Additional Health Concerns Infection Onset Date Last Indicated Resolved Time R/O COVID-19 03/17/2021 03/18/2021 03/19/2021 1:53 AM CO SUPERVISOR GROUNDS AND LANDSCAPE documented as of this encounter Care Teams Hospitalist Physician Relationship Specialty [place] [address] [place] [address] PCP - General Internal Medicine 01/24/22 documented as of this encounter
--- OUTSIDE RECORDS SUMMARY | 2024-09-24 18:41 | XMS_ITS | Encounter Summary ---
Author Organization [facility] Address [address] [place] [address] Care Team Providers Care Black Jack Dealer Name Role Phone VenturaFarhad DO Primary Care Provider Encounter Details Date Type Department Care Team (Late st Contact Info) Description 09/28/2006 Outpatient Historical [facility] [address] [place] [address] [place] [address] [place] [address] Social History Tobacco Use Types Packs/Day Years Used Date Smoking Tobacco: Never Assessed Comments Unknown Sex and Gender Information Value Date Recorded Sex Assigned at Not on file Legal Sex Female 4:25 AM INTELLIGENCE OPERATIONS Gender Identity Not on file Sexual Orientation Not on file documented as of this encounter Plan of Treatment Not on file documented as of this encounter Visit Diagnoses Not on filedocumented in this encounter Additional Health Concerns Infection Onset Date Last Indicated Resolved Time R/O COVID-19 03/17/2021 03/18/2021 03/19/2021 1:53 AM INTELLIGENCE OPERATIONS documented as of this encounter Care Teams Black Jack Dealer Relationship Specialty [place] [address] [place] [address] PCP - General Internal Medicine 01/24/22 documented as of this encounter
--- OUTSIDE RECORDS SUMMARY | 2024-09-24 18:41 | XMS_ITS | Encounter Summary ---
Author Organization [facility] Address [address] [place] [address] Care Team Providers Care Coding Manager Name Role Phone VenturaFarhad DO Primary Care Provider Encounter Details Date Type Department Care Team (Late st Contact Info) Description 03/09/2004 Outpatient Historical [facility] [address] [place] [address] [place] [address] [place] [address] Social History Tobacco Use Types Packs/Day Years Used Date Smoking Tobacco: Never Assessed Comments Unknown Sex and Gender Information Value Date Recorded Sex Assigned at Not on file Legal Sex Female 4:25 AM SERVICE PORTER Gender Identity Not on file Sexual Orientation Not on file documented as of this encounter Plan of Treatment Not on file documented as of this encounter Visit Diagnoses Not on filedocumented in this encounter Additional Health Concerns Infection Onset Date Last Indicated Resolved Time R/O COVID-19 03/17/2021 03/18/2021 03/19/2021 1:53 AM SERVICE PORTER documented as of this encounter Care Teams Coding Manager Relationship Specialty [place] [address] [place] [address] PCP - General Internal Medicine 01/24/22 documented as of this encounter
--- OUTSIDE RECORDS SUMMARY | 2024-09-24 18:41 | XMS_ITS | Encounter Summary ---
Author Organization [facility] Address [address] [place] [address] Care Team Providers Care Bathing Suit Maker Name Role Phone VenturaFarhad DO Primary Care Provider Encounter Details Date Type Department Care Team (Late st Contact Info) Description 04/09/2001 Outpatient Historical [facility] [address] [place] [address] [place] [address] [place] [address] Social History Tobacco Use Types Packs/Day Years Used Date Smoking Tobacco: Never Assessed Comments Unknown Sex and Gender Information Value Date Recorded Sex Assigned at Not on file Legal Sex Female 4:25 AM CHILD SUPPORT SPECIALIST Gender Identity Not on file Sexual Orientation Not on file documented as of this encounter Plan of Treatment Not on file documented as of this encounter Visit Diagnoses Not on filedocumented in this encounter Additional Health Concerns Infection Onset Date Last Indicated Resolved Time R/O COVID-19 03/17/2021 03/18/2021 03/19/2021 1:53 AM CHILD SUPPORT SPECIALIST documented as of this encounter Care Teams Bathing Suit Maker Relationship Specialty [place] [address] [place] [address] PCP - General Internal Medicine 01/24/22 documented as of this encounter
--- OUTSIDE RECORDS SUMMARY | 2024-09-24 18:41 | XMS_ITS | Encounter Summary ---
Author Organization [facility] Address [address] [place] [address] Care Team Providers Care Internal Medicine Veterinary Technician Name Role Phone VenturaFarhad DO Primary Care Provider Encounter Details Date Type Department Care Team (Late st Contact Info) Description 01/17/2000 Outpatient Historical [facility] [address] [place] [address] [place] [address] [place] [address] Social History Tobacco Use Types Packs/Day Years Used Date Smoking Tobacco: Never Assessed Comments Unknown Sex and Gender Information Value Date Recorded Sex Assigned at Not on file Legal Sex Female 4:25 AM SCIENCE TECHNICIANS Gender Identity Not on file Sexual Orientation Not on file documented as of this encounter Plan of Treatment Not on file documented as of this encounter Visit Diagnoses Not on filedocumented in this encounter Additional Health Concerns Infection Onset Date Last Indicated Resolved Time R/O COVID-19 03/17/2021 03/18/2021 03/19/2021 1:53 AM SCIENCE TECHNICIANS documented as of this encounter Care Teams Internal Medicine Veterinary Technician Relationship Specialty [place] [address] [place] [address] PCP - General Internal Medicine 01/24/22 documented as of this encounter
--- OUTSIDE RECORDS SUMMARY | 2024-09-24 18:41 | XMS_ITS | Encounter Summary ---
Author Organization [facility] Address [address] [place] [address] Care Team Providers Care Color Mixer Name Role Phone Farhad Whitehead DO Primary Care Provider Encounter Details Date Type Department Care Team (Late st Contact Info) Description 01/18/2007 Outpatient Historical [facility] [address] [place] [address] [place] [address] [place] [address] Social History Tobacco Use Types Packs/Day Years Used Date Smoking Tobacco: Never Assessed Comments Unknown Sex and Gender Information Value Date Recorded Sex Assigned at Not on file Legal Sex Female 4:25 AM TIMBER ROBBER Gender Identity Not on file Sexual Orientation Not on file documented as of this encounter Plan of Treatment Not on file documented as of this encounter Visit Diagnoses Not on filedocumented in this encounter Additional Health Concerns Infection Onset Date Last Indicated Resolved Time R/O COVID-19 03/17/2021 03/18/2021 03/19/2021 1:53 AM TIMBER ROBBER documented as of this encounter Care Teams Color Mixer Relationship Specialty Start Date End Date VenturaFarhad GarciaDO [address] [place] [address] PCP - General Internal Medicine 01/24/22 documented as of this encounter
--- OUTSIDE RECORDS SUMMARY | 2024-09-24 18:41 | XMS_ITS | Encounter Summary ---
Author Organization [facility] Address [address] [place] [address] Care Team Providers Care Distribution Driver Name Role Phone VenturaFarhad DO Primary Care Provider Encounter Details Date Type Department Care Team (Late st Contact Info) Description 08/04/2000 Outpatient Historical [facility] [address] [place] [address] [place] [address] [place] [address] Social History Tobacco Use Types Packs/Day Years Used Date Smoking Tobacco: Never Assessed Comments Unknown Sex and Gender Information Value Date Recorded Sex Assigned at Not on file Legal Sex Female 4:25 AM DIRECTOR OF ACADEMIC Gender Identity Not on file Sexual Orientation Not on file documented as of this encounter Plan of Treatment Not on file documented as of this encounter Visit Diagnoses Not on filedocumented in this encounter Additional Health Concerns Infection Onset Date Last Indicated Resolved Time R/O COVID-19 03/17/2021 03/18/2021 03/19/2021 1:53 AM DIRECTOR OF ACADEMIC documented as of this encounter Care Teams Distribution Driver Relationship Specialty [place] [address] [place] [address] PCP - General Internal Medicine 01/24/22 documented as of this encounter
--- OUTSIDE RECORDS SUMMARY | 2024-09-24 18:41 | XMS_ITS | Encounter Summary ---
Author Organization [facility] Address [address] [place] [address] Care Team Providers Care Ehs Teacher Name Role Phone VenturaFarhad DO Primary Care Provider Encounter Details Date Type Department Care Team (Late st Contact Info) Description 07/02/2002 Outpatient Historical [facility] [address] [place] [address] [place] [address] [place] [address] Social History Tobacco Use Types Packs/Day Years Used Date Smoking Tobacco: Never Assessed Comments Unknown Sex and Gender Information Value Date Recorded Sex Assigned at Not on file Legal Sex Female 4:25 AM PRINTING BINDERY ASSISTANT Gender Identity Not on file Sexual Orientation Not on file documented as of this encounter Plan of Treatment Not on file documented as of this encounter Visit Diagnoses Not on filedocumented in this encounter Additional Health Concerns Infection Onset Date Last Indicated Resolved Time R/O COVID-19 03/17/2021 03/18/2021 03/19/2021 1:53 AM PRINTING BINDERY ASSISTANT documented as of this encounter Care Teams Ehs Teacher Relationship Specialty [place] [address] [place] [address] PCP - General Internal Medicine 01/24/22 documented as of this encounter
--- OUTSIDE RECORDS SUMMARY | 2024-09-24 18:41 | XMS_ITS | Encounter Summary ---
Author Organization [facility] Address [address] [place] [address] Care Team Providers Care Card Seller Name Role Phone VenturaFarhad DO Primary Care Provider Encounter Details Date Type Department Care Team (Late st Contact Info) Description 05/22/2000 Outpatient Historical [facility] [address] [place] [address] [place] [address] [place] [address] Social History Tobacco Use Types Packs/Day Years Used Date Smoking Tobacco: Never Assessed Comments Unknown Sex and Gender Information Value Date Recorded Sex Assigned at Not on file Legal Sex Female 4:25 AM DINING ROOM CASHIER Gender Identity Not on file Sexual Orientation Not on file documented as of this encounter Plan of Treatment Not on file documented as of this encounter Visit Diagnoses Not on filedocumented in this encounter Additional Health Concerns Infection Onset Date Last Indicated Resolved Time R/O COVID-19 03/17/2021 03/18/2021 03/19/2021 1:53 AM DINING ROOM CASHIER documented as of this encounter Care Teams Card Seller Relationship Specialty Start [place] [address] [place] [address] PCP - General Internal Medicine 01/24/22 documented as of this encounter
--- OUTSIDE RECORDS SUMMARY | 2024-09-24 18:41 | XMS_ITS | Encounter Summary ---
Author Organization [facility] Address [address] [place] [address] Care Team Providers Care Investigation Clerk Name Role Phone VenturaFarhad boone DO Primary Care Provider Encounter Details Date Type Department Care Team (Late st Contact Info) Description 05/17/2001 Outpatient Historical [facility] [address] [place] [address] Zay Chilel MD [address] [place] [address] Social History Tobacco Use Types Packs/Day Years Used Date Smoking Tobacco: Never Assessed Comments Unknown Sex and Gender Information Value Date Recorded Sex Assigned at Not on file Legal Sex Female 4:25 AM PAINTING WORKER Gender Identity Not on file Sexual Orientation Not on file documented as of this encounter Plan of Treatment Not on file documented as of this encounter Visit Diagnoses Not on filedocumented in this encounter Additional Health Concerns Infection Onset Date Last Indicated Resolved Time R/O COVID-19 03/17/2021 03/18/2021 03/19/2021 1:53 AM PAINTING WORKER documented as of this encounter Care Teams Investigation Clerk Relationship Specialty Start [place] [address] [place] [address] PCP - General Internal Medicine 01/24/22 documented as of this encounter
--- OUTSIDE RECORDS SUMMARY | 2024-09-24 18:41 | XMS_ITS | Encounter Summary ---
Author Organization [facility] Address [address] [place] [address] Care Team Providers Care Tape Sewer Name Role Phone VenturaFarhad DO Primary Care Provider Encounter Details Date Type Department Care Team (Late st Contact Info) Description 10/30/2002 Outpatient Historical [facility] [address] [place] [address] [place] [address] [place] [address] Social History Tobacco Use Types Packs/Day Years Used Date Smoking Tobacco: Never Assessed Comments Unknown Sex and Gender Information Value Date Recorded Sex Assigned at Not on file Legal Sex Female 4:25 AM PETROLEUM ENGINEER Gender Identity Not on file Sexual Orientation Not on file documented as of this encounter Plan of Treatment Not on file documented as of this encounter Visit Diagnoses Not on filedocumented in this encounter Additional Health Concerns Infection Onset Date Last Indicated Resolved Time R/O COVID-19 03/17/2021 03/18/2021 03/19/2021 1:53 AM PETROLEUM ENGINEER documented as of this encounter Care Teams Tape Sewer Relationship Specialty [place] [address] [place] [address] PCP - General Internal Medicine 01/24/22 documented as of this encounter
--- OUTSIDE RECORDS SUMMARY | 2024-09-24 18:41 | XMS_ITS | Encounter Summary ---
Author Organization [facility] Address [address] [place] [address] Care Team Providers Care Clinical Tech Name Role Phone VenturaFarhad DO Primary Care Provider Encounter Details Date Type Department Care Team (Late st Contact Info) Description 02/28/2003 Outpatient Historical [facility] [address] [place] [address] [place] [address] [place] [address] Social History Tobacco Use Types Packs/Day Years Used Date Smoking Tobacco: Never Assessed Comments Unknown Sex and Gender Information Value Date Recorded Sex Assigned at Not on file Legal Sex Female 4:25 AM INSULATION SUPERVISOR Gender Identity Not on file Sexual Orientation Not on file documented as of this encounter Plan of Treatment Not on file documented as of this encounter Visit Diagnoses Not on filedocumented in this encounter Additional Health Concerns Infection Onset Date Last Indicated Resolved Time R/O COVID-19 03/17/2021 03/18/2021 03/19/2021 1:53 AM INSULATION SUPERVISOR documented as of this encounter Care Teams Clinical Tech Relationship Specialty Start [place] [address] [place] [address] PCP - General Internal Medicine 01/24/22 documented as of this encounter
--- OUTSIDE RECORDS SUMMARY | 2024-09-24 18:41 | XMS_ITS | Encounter Summary ---
Author Organization [facility] Address [address] [place] [address] Care Team Providers Care Dinkey Press Operator Name Role Phone VenturaFarhad DO Primary Care Provider Encounter Details Date Type Department Care Team (Late st Contact Info) Description 12/17/1999 Outpatient Historical [facility] [address] [place] [address] [place] [address] [place] [address] Social History Tobacco Use Types Packs/Day Years Used Date Smoking Tobacco: Never Assessed Comments Unknown Sex and Gender Information Value Date Recorded Sex Assigned at Not on file Legal Sex Female 4:25 AM PUBLIC INFORMATION COORDINATOR Gender Identity Not on file Sexual Orientation Not on file documented as of this encounter Plan of Treatment Not on file documented as of this encounter Visit Diagnoses Not on filedocumented in this encounter Additional Health Concerns Infection Onset Date Last Indicated Resolved Time R/O COVID-19 03/17/2021 03/18/2021 03/19/2021 1:53 AM PUBLIC INFORMATION COORDINATOR documented as of this encounter Care Teams Dinkey Press Operator Relationship Specialty Start [place] [address] [place] [address] PCP - General Internal Medicine 01/24/22 documented as of this encounter
--- OUTSIDE RECORDS SUMMARY | 2024-09-24 18:41 | XMS_ITS | Encounter Summary ---
Author Organization [facility] Address [address] [place] [address] Care Team Providers Care Air Twister Winder Name Role Phone VenturaFarhad DO Primary Care Provider Encounter Details Date Type Department Care Team (Late st Contact Info) Description 2005 Outpatient Historical [facility] [address] [place] [address] [place] [address] [place] [address] Social History Tobacco Use Types Packs/Day Years Used Date Smoking Tobacco: Never Assessed Comments Unknown Sex and Gender Information Value Date Recorded Sex Assigned at Not on file Legal Sex Female 4:25 AM PERL PROGRAMMER Gender Identity Not on file Sexual Orientation Not on file documented as of this encounter Plan of Treatment Not on file documented as of this encounter Visit Diagnoses Not on filedocumented in this encounter Additional Health Concerns Infection Onset Date Last Indicated Resolved Time R/O COVID-19 03/17/2021 03/18/2021 03/19/2021 1:53 AM PERL PROGRAMMER documented as of this encounter Care Teams Air Twister Winder Relationship Specialty Start [place] [address] [place] [address] PCP - General Internal Medicine 01/24/22 documented as of this encounter
--- OUTSIDE RECORDS SUMMARY | 2024-09-24 18:41 | XMS_ITS | Encounter Summary ---
Author Organization [facility] Address [address] [place] [address] Care Team Providers Care Receiving Associate Name Role Phone VenturaFarhad DO Primary Care Provider Encounter Details Date Type Department Care Team (Late st Contact Info) Description 11/02/2004 Outpatient Historical [facility] [address] [place] [address] [place] [address] [place] [address] Social History Tobacco Use Types Packs/Day Years Used Date Smoking Tobacco: Never Assessed Comments Unknown Sex and Gender Information Value Date Recorded Sex Assigned at Not on file Legal Sex Female 4:25 AM NEWSPAPER INSERTER Gender Identity Not on file Sexual Orientation Not on file documented as of this encounter Plan of Treatment Not on file documented as of this encounter Visit Diagnoses Not on filedocumented in this encounter Additional Health Concerns Infection Onset Date Last Indicated Resolved Time R/O COVID-19 03/17/2021 03/18/2021 03/19/2021 1:53 AM NEWSPAPER INSERTER documented as of this encounter Care Teams Receiving Associate Relationship Specialty [place] [address] [place] [address] PCP - General Internal Medicine 01/24/22 documented as of this encounter
--- OUTSIDE RECORDS SUMMARY | 2024-09-24 18:41 | XMS_ITS | Encounter Summary ---
Author Organization [facility] Address [address] [place] [address] Care Team Providers Care Department Helper Name Role Phone VenturaFarhad DO Primary Care Provider Encounter Details Date Type Department Care Team (Late st Contact Info) Description 10/19/2001 Outpatient Historical [facility] [address] [place] [address] [place] [address] [place] [address] Social History Tobacco Use Types Packs/Day Years Used Date Smoking Tobacco: Never Assessed Comments Unknown Sex and Gender Information Value Date Recorded Sex Assigned at Not on file Legal Sex Female 4:25 AM GENERAL CAR SUPERVISOR YARD Gender Identity Not on file Sexual Orientation Not on file documented as of this encounter Plan of Treatment Not on file documented as of this encounter Visit Diagnoses Not on filedocumented in this encounter Additional Health Concerns Infection Onset Date Last Indicated Resolved Time R/O COVID-19 03/17/2021 03/18/2021 03/19/2021 1:53 AM GENERAL CAR SUPERVISOR YARD documented as of this encounter Care Teams Department Helper Relationship Specialty Start [place] [address] [place] [address] PCP - General Internal Medicine 01/24/22 documented as of this encounter
--- OUTSIDE RECORDS SUMMARY | 2024-09-24 18:41 | XMS_ITS | Encounter Summary ---
Author Organization [facility] Address [address] [place] [address] Care Team Providers Care Sheet Metal Assembler And Riveter Name Role Phone VenturaFarhad DO Primary Care Provider Encounter Details Date Type Department Care Team (Late st Contact Info) Description 07/11/2003 Outpatient Historical [facility] [address] [place] [address] [place] [address] [place] [address] Social History Tobacco Use Types Packs/Day Years Used Date Smoking Tobacco: Never Assessed Comments Unknown Sex and Gender Information Value Date Recorded Sex Assigned at Not on file Legal Sex Female 4:25 AM PAINT TESTER Gender Identity Not on file Sexual Orientation Not on file documented as of this encounter Plan of Treatment Not on file documented as of this encounter Visit Diagnoses Not on filedocumented in this encounter Additional Health Concerns Infection Onset Date Last Indicated Resolved Time R/O COVID-19 03/17/2021 03/18/2021 03/19/2021 1:53 AM PAINT TESTER documented as of this encounter Care Teams Sheet Metal Assembler And Riveter Relationship Specialty [place] [address] [place] [address] PCP - General Internal Medicine 01/24/22 documented as of this encounter
--- OUTSIDE RECORDS SUMMARY | 2024-09-24 18:41 | XMS_ITS | Encounter Summary ---
Author Organization [facility] Address [address] [place] [address] Care Team Providers Care Cheerleading Coach Name Role Phone VenturaFarhad DO Primary Care Provider Encounter Details Date Type Department Care Team (Late st Contact Info) Description 07/20/2001 Outpatient Historical [facility] [address] [place] [address] [place] [address] [place] [address] Social History Tobacco Use Types Packs/Day Years Used Date Smoking Tobacco: Never Assessed Comments Unknown Sex and Gender Information Value Date Recorded Sex Assigned at Not on file Legal Sex Female 4:25 AM LAY OUT INSPECTOR Gender Identity Not on file Sexual Orientation Not on file documented as of this encounter Plan of Treatment Not on file documented as of this encounter Visit Diagnoses Not on filedocumented in this encounter Additional Health Concerns Infection Onset Date Last Indicated Resolved Time R/O COVID-19 03/17/2021 03/18/2021 03/19/2021 1:53 AM LAY OUT INSPECTOR documented as of this encounter Care Teams Cheerleading Coach Relationship Specialty [place] [address] [place] [address] PCP - General Internal Medicine 01/24/22 documented as of this encounter
--- OUTSIDE RECORDS SUMMARY | 2024-09-24 18:41 | XMS_ITS | Clinical Summary ---
Author Organization [facility] Health Address [address] [place] [address] Care Team Providers Care Sugar House Supervisor Name Role Phone Unavailable Primary Care Provider [...]
--- OUTSIDE RECORDS SUMMARY | 2024-09-24 18:41 | XMS_ITS | Encounter Summary ---
Author Organization [facility] Address [address] [place] [address] Care Team Providers Care Bioinformatician Name Role Phone VenturaFarhad DO Primary Care Provider Encounter Details Date Type Department Care Team (Late st Contact Info) Description 09/02/2004 Outpatient Historical [facility] [address] [place] [address] [place] [address] [place] [address] Social History Tobacco Use Types Packs/Day Years Used Date Smoking Tobacco: Never Assessed Comments Unknown Sex and Gender Information Value Date Recorded Sex Assigned at Not on file Legal Sex Female 4:25 AM QUANTITY SURVEYOR Gender Identity Not on file Sexual Orientation Not on file documented as of this encounter Plan of Treatment Not on file documented as of this encounter Visit Diagnoses Not on filedocumented in this encounter Additional Health Concerns Infection Onset Date Last Indicated Resolved Time R/O COVID-19 03/17/2021 03/18/2021 03/19/2021 1:53 AM QUANTITY SURVEYOR documented as of this encounter Care Teams Bioinformatician Relationship Specialty [place] [address] [place] [address] PCP - General Internal Medicine 01/24/22 documented as of this encounter
--- OUTSIDE RECORDS SUMMARY | 2024-09-24 18:41 | XMS_ITS | Encounter Summary ---
Author Organization [facility] Health Address [address] [place] [address] Care Team Providers Care Wired Sweatband Cutter Name Role Phone Unavailable Primary Care Provider Unavailabl e Prior Encounters Date Type Department Care Team Description 03/11/2019 Converted CPS Chart Documents [facility] [address] [place] [address] <No scans attached> 03/11/2019 Converted 13x Documents [facility] [address] [place] [address] <No scans attached> Plan of [...] 19 ENDODONTIC THERAPY, MOLAR TOOTH (EXCLUDING FINAL VOODOO) Routine 09/03/2018 2:00 AM CDT PANORAMIC RADIOGRAPHIC [...]
--- OUTSIDE RECORDS SUMMARY | 2024-09-24 18:41 | XMS_ITS | Encounter Summary ---
Author Organization [facility] Address [address] [place] [address] Care Team Providers Care Crew Clerk Name Role Phone Farhad Whitehead DO Primary Care Provider Encounter Details Date Type Department Care Team (Late st Contact Info) Description 01/03/2002 Outpatient Historical [facility] [address] [place] [address] [place] [address] [address] Social History Tobacco Use Types Packs/Day Years Used Date Smoking Tobacco: Never Assessed Comments Unknown Sex and Gender Information Value Date Recorded Sex Assigned at Not on file Legal Sex Female 4:25 AM FIRE CAPTAIN MARINE Gender Identity Not on file Sexual Orientation Not on file documented as of this encounter Plan of Treatment Not on file documented as of this encounter Visit Diagnoses Not on filedocumented in this encounter Additional Health Concerns Infection Onset Date Last Indicated Resolved Time R/O COVID-19 03/17/2021 03/18/2021 03/19/2021 1:5 3 AM FIRE CAPTAIN MARINE documented as of this encounter Care Teams Crew Clerk Relationship Specialty Start Date End Date VenturaFarhad Garcia, [address] [place] [address] PCP - General Internal Medicine 01/24/22 documented as of this encounter
--- OUTSIDE RECORDS SUMMARY | 2024-09-24 18:41 | XMS_ITS | Encounter Summary ---
Author Organization [facility] Address [address] [place] [address] Care Team Providers Care Vat House Supervisor Name Role Phone Farhad Whitehead DO Primary Care Provider Encounter Details Date Type Department Care Team (Late st Contact Info) Description 02/22/2005 Outpatient Historical [facility] [address] 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 Gender Identity Not on file Sexual Orientation Not on file documented as of this encounter Plan of Treatment Not on file documented as of this encounter Visit Diagnoses Not on filedocumented in this encounter Additional Health Concerns Infection Onset Date Last Indicated Resolved Time R/O COVID-19 03/17/2021 03/18/2021 03/19/2021 1:53 AM MERCHANDISE CLERK documented as of this encounter Care Teams Vat House Supervisor Relationship Specialty Start Date End Date [place]had [place]DO [address] [place] [address] PCP - General Internal Medicine 01/24/22 documented as of this encounter
--- OUTSIDE RECORDS SUMMARY | 2024-09-24 18:41 | XMS_ITS | Encounter Summary ---
Author Organization [facility] Address [address] [place] [address] Care Team Providers Care Customer Trainer Name Role Phone VenturaFarhad DO Primary Care Provider Encounter Details Date Type Department Care Team (Late st Contact Info) Description 12/08/2006 Outpatient Historical [facility] [address] 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 Gender Identity Not on file Sexual Orientation Not on file documented as of this encounter Plan of Treatment Not on file documented as of this encounter Visit Diagnoses Not on filedocumented in this encounter Additional Health Concerns Infection Onset Date Last Indicated Resolved Time R/O COVID-19 03/17/2021 03/18/2021 03/19/2021 1:53 AM COMPONENT ENGINEER documented as of this encounter Care Teams Customer Trainer Relationship Specialty [place] [address] [place] [address] PCP - General Internal Medicine 01/24/22 documented as of this encounter
[2024-09-24 18:51] VITALS: BP 150/85; PULSE 93
[2024-09-24 19:00] VITALS: BP 158/87; PULSE 100
[2024-09-24 19:15] VITALS: BP 135/82; PULSE 100
[2024-09-24 19:22] LABS: Hematocrit 34.9 % (37.0-47.0); Hemoglobin 11.6 g/dL (12.0-15.0); Immature Granulocyte Percent A 0.5 % (0-0.5); Lymphocytes Absolute Auto 1.78 K/mm3 (0.9-3.2); Mean Corpuscular HGB Conc 33.2 g/dl (32-36); Mean Corpuscular Hemoglobin 28.8 pg (26-34); Mean Corpuscular Volume 86.6 fl (80-100); Nucleated Red Blood Cells Absolute Auto 0.000 K/mm3 (0.0-0.012); Nucleated Red Blood Cells Perc 0.0 % (0.0-0.2); Platelet Count Result 300 k/mm3 (150-375); Red Blood Count 4.03 M/mm3 (4.2-5.4); White Blood Count 7.7 K/mm3 (4.5-10.0)
[2024-09-24 19:30] VITALS: BP 126/82; PULSE 96
[2024-09-24 19:30] LABS: Albumin Level 3.5 g/dL (3.5-5.1); Chloride 105 mmol/L (98-107); Potassium 4.3 mmol/L (3.4-5.0); Sodium 133 mmol/L (137-145); Total Protein Urine Random 13 mg/dL
[2024-09-24 19:42] LABS: Alanine Aminotransferase 25 U/L (6-35); Alkaline Phosphatase 176 U/L (38-126); Anion Gap 7 mmol/L (4-12); Aspartate Amino Transferase 29 U/L (14-36); Bilirubin,Total 0.3 mg/dL (0.2-1.3); Blood Urea Nitrogen 12 mg/dL (7-17); Calcium 9.7 mg/dL (8.4-10.2); Carbon Dioxide 21 mmol/L (22-30); Estimated Glomerular Filt Rate > 60; Glucose 107 mg/dL (65-110); Total Protein 7.1 g/dL (6.3-8.2); Uric Acid 5.0 mg/dL (2.5-7.5)
[2024-09-24 19:43] LABS: Ur Ttl Prot Creatinine Ratio 0.15 mg/mg (0-0.20)
[2024-09-24 19:45] VITALS: BP 130/79; PULSE 96
[2024-09-24 19:55] LABS: Add Urine Microscopic? NO; Appearance Urine Clear (Clear); Glucose Urine UA Negative (Negative); Leukocyte Esterase Ur Negative LEU/UL (Negative); Nitrate Urine Negative (Negative); Specific Grav Ur 1.022 (1.001-1.035)
--- NOTE | 2024-09-28 06:45 | PM.OBTRLD ---
OB - Triage/Final Diagnosis Visit Information Reason for evaluation: threatened labor Comments/Additional reasons for admission: I have assessed the risk for this patient, Zohreh Kevin, and determined that she would benefit from observation care. Evaluation Laboratory results: Laboratory Tests 09/24/24 09/24/24 18:59 19:06 WBC 7.7 RBC 4.03 L Hgb 11.6 L Hct 34.9 L MCV 86.6 MCH 28.8 MCHC 33.2 RDW 13.3 Plt Count 300 MPV 10.6 H Immature Gran % (Auto) 0.5 Neut % (Auto) 66.2 Lymph % (Auto) 23.2 Bennett % (Auto) 8.9 H Eos % (Auto) 0.9 Baso % (Auto) 0.3 Lymph # (Auto) 1.78 Bennett # (Auto) 0.7 H Eos # (Auto) 0.1 Baso # (Auto) 0.0 Abs Immat Gran (auto) 0.04 H Absolute Neuts (auto) 5.1 Absolute Nucleated RBC 0.000 Nucleated RBC % 0.0 Sodium 133 L Potassium 4.3 Chloride 105 Carbon Dioxide 21 L Anion Gap 7 BUN 12 Creatinine 0.73 Estim Creat Clear Calc Not Reportable Estimated GFR > 60 Glucose 107 Uric Acid 5.0 Calcium 9.7 Total Bilirubin 0.3 AST 29 ALT 25 Alkaline Phosphatase 176 H Total Protein 7.1 Albumin 3.5 Urine Color Yellow Urine Appearance Clear Urine pH 6.5 Ur Specific Napoleon 1.022 Urine Protein Negative Urine Glucose (UA) Negative Urine Ketones 2+ H Ur Blood (Man) Negative Urine Nitrate Negative Urine Bilirubin Negative Urine Urobilinogen 0.2 Leukocyte Esterase Rfl Negative U Random Total Protein 13 Urine Creatinine 87.7 Protein/Creat Ratio 2 0.15
== END 2024-09-24 20:00 | disposition home or self-care (01) ==
PROVIDERS: Admitting Provider Obstetrics & Gynecology Gynecology; Visit Provider Obstetrics & Gynecology Gynecology
DX: O47.03 False labor before 37 completed weeks of gestation, third trimester (principal); Z3A.31 31 weeks gestation of pregnancy
CPT/HCPCS: 36415; 80053; 81003; 82570; 84156; 84550; 85025; G0378; G0379

== ENCOUNTER 2024-10-11 20:09 | Observation (INO) | payer OTHER, SELFPAY ==
--- OUTSIDE RECORDS SUMMARY | 2002-10-29 19:00 | XMS_ITS | Continuity of Care Document ---
Author Organization [facility] Address [address] [place] [address] Phone Care Team Providers Care Automotive Artist Name Role Phone Fran Kearney MD Unavailable Unavailable Advance Directives Directive Yes / No Effective Date File Name No Information Encounters Encounter Description Practice Location Reason(s) For Visit Diagnoses Date Provider Providers Copied on Encounter [facility], [address], [place], [place], [id number], [place] tel:[phone] [facility] No Information Caio Peters. [address], [place], [address], [place]. tel:[phone] Family History Family Member Type Diagnosis Age At Onset No Information Payers Payer name Insurance type Covered alliance party ID Authoriza tion(s) No Information Social History Type Description Quantity Date Captured Comments Sex Female Smoking Status No Information Chief Complaint And Reason For Visit No Information Reason For Referral Reason For Referral No Information History Of Present Illness Encounter Date Complaint History Of Prese nt Illness No Information Functional Status Date Functional Assessmen t No Information Instructions Date Instruction Additional Infor mation No Information Assessments Type Assessment Date No Information Patient Care Teams Name Effective Dates (start - stop) Status Members No Information
--- OUTSIDE RECORDS SUMMARY | 2016-07-26 19:00 | XMS_ITS | Continuity of Care Document ---
Author Organization [facility] Address [address] [place] [address] Phone Care Team Providers Care Engraver Apprentice Decorative Name Role Phone Unavailable Unavailable Unavailable Advance Directives Directive Yes / No Effective Date File Name No Information Encounters Encounter Description Practice Location Reason(s) For Visit Diagnoses Date Provider Providers Copied on Encounter [facility], [address] [facility], [place], [place], [id number], tel:[phone] [facility] No Information 7201 7 No Information Referring Provider: MAKSIM Salter, [address] [facility] [address], [place], [address]. tel:[phone] Family History Family Member Type Diagnosis Age At Onset No Information Payers Payer name Insurance type Covered alliance party ID Authoriza timolina(s) [facility] [id number] CI [id number] Social History Type Description Quantity Date Captured Comments Sex Female Smoking Status No Information Chief Complaint And Reason For Visit No Information History Of Present Illness Encounter Date Complaint History Of Prese nt Illness No Information Instructions Date Instruction Additional Infor mation No Information Assessments Type Assessment Date No Information
--- OUTSIDE RECORDS SUMMARY | 2016-08-02 19:00 | XMS_ITS | Continuity of Care Document ---
Author Organization [facility] Address [address] [facility] [address] Phone Care Team Providers Care Photographer Apprentice Lithographic Name Role Phone Unavailable Unavailable Unavailable Advance Directives Directive Yes / No Effective Date File Name No Information Encounters Encounter Description Practice Location Reason(s) For Visit Diagnoses Date Provider Providers Copied on Encounter [facility], [address] [facility] [place], [place], [address], tel:[phone] [facility] No Information 7 No Information Referring Provider: MAKSIM Salter, [address] [facility] [address], [place], [address]. tel:[phone] Family History Family Member Type Diagnosis Age At Onset No Information Payers Payer name Insurance type Covered constitution party ID Authoriza timolina(s) [facility] PPO [id number] CI [id number] Social History Type Description Quantity Date Captured Comments Sex Female Smoking Status No Information Chief Complaint And Reason For Visit No Information History Of Present Illness Encounter Date Complaint History Of Prese nt Illness No Information Instructions Date Instruction Additional Infor mation No Information Assessments Type Assessment Date No Information
--- OUTSIDE RECORDS SUMMARY | 2024-10-10 08:55 | XMS_ITS | Encounter Summary ---
Author Organization [facility] Address [address] [place] [address] Care Team Providers Care Filenet Developer Name Role Phone Unknown, Provider Primary Care Provider Unavaila ble Reason for Referral * (Routine) - Open Specialty Diagnoses / Procedures Referred By Contac t Referred To Contact Diagnoses 33 weeks gestation of (HCC) AMA (advanced maternal age) multigravida 35+, third trimester (HCC) with history of section, antepartum (HCC) History of gestational diabetes in prior , currently (HCC) Gestational diabetes mellitus (GDM) in third trimester, gestational diabetes method of control unspecified (HCC) abnormality affecting management of mother, single or unspecified fetus (HCC) Procedures Biophysical Profile w NST Sarita Davis MD [address] [place] [address] Phone: tel: fax: Referral ID Status Reason Start Date Expiration Date Visits Re quested Visits Authorized [id number] Open 10/07/2024 10/07/2025 7 7 * (Routine) - Open Specialty Diagnoses / Procedures Referred By Contac t Referred To Contact Diagnoses 33 weeks gestation of (HCC) AMA (advanced maternal age) multigravida 35+, third trimester (HCC) with history of section, antepartum (HCC) History of gestational diabetes in prior , currently (HCC) Gestational diabetes mellitus (GDM) in third trimester, gestational diabetes method of control unspecified (HCC) abnormality affecting management of mother, single or unspecified fetus (HCC) Procedures Sonogram - Complete Sarita Davis MD [address] [place] [address] Phone: tel: fax: Referral ID Status Reason Start Date Expiration Date Visits Re quested Visits Authorized [id number] Open 10/07/2024 10/07/2025 1 1 Reason for Visit * Reason Comments Ultrasound Non-stress Test Diabetes Maternal Medicine Encounter Details Date Type Department Care Team (Latest Contact Info) Description 10/10/2024 8:55 AM CDT - 10/10/2024 11:59 PM CDT Hospital Encounter [facility] [address] [place] [address] Toni Peguero DO [address] [facility] [address] [place] [address] Discharge Disposition: Home or Self [...] money to get more. Never true 08/22/2024 Williston Depression Scale Answer Date Recorded Will[place] Depression Scale Total 4 08/22/2024 The thought of harming myself has occurred to me . Never 08/22/2024 Estimated Date of Delivery Comme nts Yes 11/21/2024 Based on last me nstrual period of 02/15/2024 Sex and Gender Information Value Date Recorded Sex Assigned at Not on file Legal Sex Female 6:23 AM [employer] Gender Identity Not on file Sexual Orientation Not on file documented as of this encounter Last Filed Vital Signs Vital Sign Reading Time Taken Comments Blood Pressure 140/85 10/10/2024 9:51 AM CDT Pulse 88 10/10/2024 9:51 AM CDT Temperature - - Respiratory Rate - - Oxygen Saturation - - Inhaled Oxygen Concentration - - Weight 126.6 kg (279 lb) 10/10/2024 9:40 AM CDT Height - - Body Mass Index 41.2 07/05/2024 8:54 AM CDT documented in this encounter Medications at Time of Discharge Aspirin 81 MG CAPS DAILY 08/26/2024 Continuous Glucose Sensor (FreeStyle Samantha 2 Sensor Systm) [facility] CHECK BLOOD SUGARS 4 TIMES A DAY 09/09/2024 Vit-Fe Fumarate-FA ( vitamin) 28-0.8 MG tablet Take 1 (one) tablet by mouth once daily sertraline (Zoloft) 50 MG tablet Take 1 (one) tablet by mouth once daily 05/27/2024 documented as of this encounter Progress Notes * Chantal Carter RN - 10/10/2024 10:58 AM CDT Diabetes Self Management Education and Support Zohreh Kevin is a 34 year old [id number] Date of Delivery: 11/21/24 Patient seen today for Initial Diabetes Self Management Education ( DSME) for GDM DSME content and documentation follows. Pt accompanied by: , Rajat History of Diabetes: Gestational diabetes with last two pregnancies, but has not taken medication Barriers to Learning: none GTT --n/a Blood glucose today: 79 mg/dl Random Knowledge/Skills presented: Diabetes Definition and Symptoms Risk factors Types of diabetes Normal and target blood glucose levels Changing insulin requirements during Reason for obtaining Normal BG levels Maternal / risks 3rd trimester high weight , difficulty breathing, hypoglycemia, retarded lung maturity, still , and materal ketoacidosis and preeclampsia Blood Glucose Monitoring Has monitored in past, but currently using Samantha. Sent invitation to share data Pt has data on log sheet for dates 09/29 thru 10/07/24 Fasting readings range 76 to 91 mg/dl with 1 of 9 over goal After breakfast range 93 to 108 mg/dl with 0 of 10 over goal After lunch range 78 to 138 mg/dl with 1 of 9 over goal After dinner range 89 to 147 mg/dl with 3 of 9 over goal Samantha data shows average glucose id 93 mg/dl 96% in goal range of 70 to 180 mg/dl with 4 % in 54 to 69 mg/dl downloaded rossana for Samantha so he can help. Healthy Eating/Meal Planning Choosing healthy types and amounts of carbohydrates Foods to avoid: juice, soda, fruit in morning, sweets Importance of regular eating 3 meals and 3 snacks Label reading / Carbohydrate counting Pt states she is very strict with herself. She does not eat fruit as afraid it will raise her glucose. Breakfast is usually boiled eggs and sausage. Discussed adding carb to breakfast--whole grain toast, oatmeal, or almond milk. Lunch usually chicken caesar salad with croutons. Dinner varies, but usually includes vegetable. Appropriate Weight Gain during Factors that affect blood sugar levels Food, activity, insulin type/amount, stress/illness Hyperglycemia Prevention, symptoms, treatment Reporting of high blood glucose levels to MD Dangers of high blood glucose levels Hypoglycemia Prevention, symptoms, treatment Reporting of low blood glucose levels to MD Dangers of low blood glucose levels Using medications for blood glucose control: overview Doctor wanted insulin started for fasting readings, but only one with data available over 90 mg/dl.Will continue to evaluate. Prevention of T2 Diabetes/ 6 week bg check Receptive to teaching: yes Understanding of instructions: yes Discussed all with AMI Starr. No medication intervention at this time. Instructed to test blood glucose fasting and 1 hour after each meal and keep records of blood glucose, food and exercise. Stressed the importance of bringing meter and logs to each appointment. Has appointment again in one week. Provided Diabetes and Nutrition Manual and log sheets and phone # and email address. Answered all questions. Pt states understanding of instructions provided. * Nicole Melgar APRN-SAIL REPAIRER - 10/10/2024 9:55 AM CDT Images from the original note were not included. TRA follow up visit Zohreh Kevin is a 34 year old 34w0d. We are following her for AMA, GDM, history of GDM and preeclampsia. History of C/S and in subsequent . She has no complaints today. States she is wearing a samantha to monitor her blood sugar. Reports mildswelling in her feet at the end of the day. She reports good FM, no bleeding, no LOF, no DC, no regular contractions but they have been more frequent since the weekend, no MCCURDY's, vision changes, RUQ pain. Genetic screening/testing: cf-DNA is low-risk Her is complicated by: Patient Active Problem List Diagnosis Date Noted Depression screen 08/22/2024 Priority: Not Prioritized 08/22/2024 Zohreh Kevin was screened for depression using the [place] Depression Scale (EPDS) at her [facility] initial evaluation on 08/22/2024. Her initial scoreat baseline was 4. Based off of her score of 4, Zohreh does not warrant follow up. Patient will continue to be screened throughout , at intervals no closer than two weeks, for continued surveillance and early identification of depression until delivery. Patient reports mental health history. Diagnoses include anxiety. [facility]- abnormality in (HCC)- Pelvic Kidney 07/30/2024 Priority: Not Prioritized GROUP HOME PATIENT--PLEASE CALL [phone] (ex 2) IF TRIAGED OR ADMITTED Care Provider: Dr. Davis; [facility] consultants involved: Marissa- Nurse Navigator; Dr. 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 Villa: -recommend renal ultrasound in first week of life; -follow up with pediatric nephrology at 1 month of life with repeat renal ultrasound; -call office with interval concerns. Boiler House Supervisor: Dr. Mckeon through [facility] Concerns: 08/22/2024-Patient with history of anxiety- does take medication Care plan based on evaluation and is subject to change based on assessment. See Images or Cardiac under Chart Review for US/ ECHO/ MRI reports. Exam: BP 140/85 Pulse 88 Wt 126.6 kg (279 lb) General: NAD Abdomen: soft, NT Extremities: equal in size and width bilaterally, NT, no sign of edema FHT: per US Urine dip: negative glucose, negative ketones, trace protein, negative blood US: Please see report for details. LGA fetus Impressions/Recs 1. IUP (Intrauterine ) at 34w0d 2. AMA LR NIPT 3. GDM, history of GDM in G1 She presents with blood sugar logs for review. Logs reviewed in detail with myself and the diabeticeducator. Logs reveal good glycemic control. She is currently diet controlled and I would not add insulin at this time. D/W Dr. Schofield. After hours triage number provided S/p nutrition counseling at initial visit. Glucagon provided. We reviewed the target glucose ranges to minimize excessive growth and optimize outcomes. These are: Fasting 60-90 mg/dl; preprandial 60-100 mg/dl; and 1-hour postprandial <130 mg/dl. Antepartum testing Recommend BID kick counts. Recommend weekly NST/US. 2x weekly NST/weekly BPP is recommended if medication is required. Serial Ultrasound assessment of growth is recommended. Timing of Delivery If spontaneous delivery has not occurred by 39 weeks gestation, delivery may be planned between 39-40 weeks. If dating is uncertain, an amniocentesis for Lung Maturity may be performed prior toscheduled delivery. If complications, such as preeclampsia, macrosomia or poor glucose control develop, then delivery plans may need to be revised. Route of delivery Vaginal delivery may be anticipated unless the fetus is excessively large or there is an abnormal presentation. Diabetes is associated with about a six-fold risk for shoulder dystocia. Operative vaginal deliveries should be approached with caution. Glucose control in labor During labor, capillary glucose values should be checked every 1-2 hours (depending on their stability). Maintenance fluids with 5% dextrose are infused to prevent starvation ketosis. If the glucose values exceed 110 mg/dl, an insulin infusion is recommended. Long-term diabetes surveillance The risk of this patient developing diabetes outside of over the next five years may be as high as 50%. I recommend that she have a 2 hr 75 gram load gtt at 6 to 8 weeks and counseling about ways to minimize her risk. If her testing is normal, annual glucose screening by her primary care physician is advised. In any future pregnancies, she should have a HGBA1C drawn with her p renatal panel and if wnl, then a 1 hr gtt at 14-18 weeks. If WNL, then repeat 1 hr gtt at 26-28 weeks. 4. Hx of preeclampsia LDASA 162mg daily Mild BP elevation in office today. CBC, CMP, PCR orders given to have drawn at [facility] today. S&Sof preeclampsia reviewed today. D/W Dr. Peguero today. 5. 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 We reviewed kick counts (BID), as well as PTL and preeclampsia signs and symptoms. 7. RTC: weekly CLIENT RESOURCE SPECIALIST/NST/US/CDE 8. Keep all appointments with primary OB I spent 30 minutes with the patient, greater than 50% of the time was spent face to face in discussion with the patient the remainder of the time was spent in chart prep and data review. The patient is to follow up with her primary obstetrical care provider for her routine care and acute OB care including delivery as clinically indicated. Once again, we appreciate the opportunity to assist you in the care of your patient. If issues arise for which I can be of help before her next visit here, please contact me directly, or contact one of the [facility] physicians. HITESH Gallegos 10/10/2024 9:55 AM * Barbra Arzate, GINNY - 10/10/2024 9:41 AM CDT Co-Manage with Dr. Davis Patient here at 34w0d for ultrasound, NST, DE, and follow up provider visit due to GDM. Denies leaking fluid or vaginal bleeding. Reports occasional contractions. Denies headache, visual changes, or RUQ pain. Reports feeling movement. Home medications reviewed. Urine dip today = trace protein Educated on labor precautions. See note per Frederick Melgar NP for further plan of care. [facility] follow up: weekly BP 146/84 Pulse 88 Wt 126.6 kg (279 lb) documented in this encounter Plan of Treatment Upcoming Encounters Date Type Department Care Team (Late st Contact Info) Description 10/15/2024 7:30 AM CDT Hospital Encounter [facility] [address] [facility] [place] [address] Farhad Casarez MD [address] [facility] [address] [place] [address] 10/15/2024 8:15 AM CDT Hospital Encounter [facility] [address] [place] [address] Farhad Casarez MD [address] [facility] [address] [place] [address] 10/15/2024 9:00 AM CDT Hospital Encounter [facility] [address] [place] [address] Farhad Casarez MD [address] [place] [address] [place] [address] 10/15/2024 9:45 AM CDT Hospital Encounter [facility] [address] [facility] [place] [address] Farhad Casarez MD [address] [place] [address] [place] [address] 10/29/2024 7:30 AM CDT Appointment [facility] [address] [facility] [place] [address] 10/29/2024 8:15 AM CDT Appointment [facility] [address] [facility] [place] [address] 10/29/2024 8:15 AM CDT Appointment [facility] [address] [place] [address] 10/29/2024 8:15 AM CDT Appointment [facility] [address] [place] [id number] 11/05/2024 7:30 AM CDT Appointment [facility] [address] [place] [phone] 11/05/2024 8:15 AM CDT Appointment [facility] [address] [place] [address] 11/05/2024 8:15 AM CDT Appointment [facility] [address] [place] [phone] 11/12/2024 7:30 AM CDT Appointment [facility] [address] [place] [phone] 11/12/2024 8:15 AM CDT Appointment [facility] [address] [place] [phone] 11/12/2024 9:00 AM CDT Appointment [facility] [address] [place] [phone] 11/12/2024 9:45 AM CDT Appointment [facility] [address] [place] [phone] Scheduled Orders Name Type Priority Associated Diagnoses Orde r Schedule Sonogram - Complete [facility] Routine 33 weeks gestation of ([facility]) AMA (advanced maternal age) multigravida 35+, third trimester ([facility]) with history of section, antepartum ([facility]) History of gestational diabetes in prior , currently ([facility]) Gestational diabetes mellitus (GDM) in third trimester, gestational diabetes method of control unspecified ([facility]) abnormality affecting management of mother, single or unspecified fetus ([facility]) 1 Occurrences starting 10/07/2024 until 10/07/2025 Biophysical Profile w NST [facility] Routine 33 weeks gestation of (HCC) AMA (advanced maternal age) multigravida 35+, third trimester (HCC) with history of section, antepartum (HCC) History of gestational diabetes in prior , currently (HCC) Gestational diabetes mellitus (GDM) in third trimester, gestational diabetes method of control unspecified (HCC) abnormality affecting management of mother, single or unspecified fetus (HCC) Once weekly for 7 Occurrences starting 10/07/2024 until 10/07/2025 Biophysical Profile w [facility] Routine 33 weeks gestation of (HCC) AMA (advanced maternal age) multigravida 35+, third trimester (HCC) with history of section, antepartum (HCC) History of gestational diabetes in prior , currently (HCC) Gestational diabetes mellitus (GDM) in third trimester, gestational diabetes method of control unspecified (HCC) abnormality affecting management of mother, single or unspecified fetus (HCC) 1 Occurrences starting 10/07/2024 until 10/07/2024 CBC WITH DIFFERENTIAL Lab Routine Elevated blood pressure reading in office without diagnosis of hypertension 1 Occurrences starting 10/10/2024 until 10/05/2025 COMPREHENSIVE METABOLIC PANEL Lab Routine Elevated blood pressure reading in office without diagnosis of hypertension 1 Occurrences starting 10/10/2024 until 10/05/2025 PROTEIN CREATININE RATIO URINE RANDOM PNL Lab Routine Elevated blood pressure reading in office without diagnosis of hypertension 1 Occurrences starting 10/10/2024 until 10/05/2025 documented as of this encounter Procedures Procedure Name Priority Date/Time Associated Diagnosis Comments BIOPHYSICAL PROFILE W NST Routine 10/10/2024 9:16 AM CDT 33 weeks gestation of (HCC) AMA (advanced maternal age) multigravida 35+, third trimester (HCC) with history of section, antepartum (HCC) History of gestational diabetes in prior , currently (HCC) Gestational diabetes mellitus (GDM) in third trimester, gestational diabetes method of control unspecified (HCC) abnormality affecting management of mother, single or unspecified fetus (HCC) documented in this encounter Results * Biophysical Profile w NST (10/10/2024 9:16 AM CDT) Linked Results Indication ======== Advanced maternal age (AMA), multigravida Gestational diabetes mellitus in , unspecified control patient to discuss need for insulin today 10/10/24, elevated fastings Maternal obesity complicating , class 2 (BMI 35.0 - 39.9) abnormality, unspecified possible cross-fused kidneys (w/ left pelvic kidney) Anxiety on Zoloft , Prior C/S History ====== OB History 6. Para 2 [id number] 1. miscarriage 2014. Details: 1st trimester 2. live 08/06/2016. Details: delivery 3. elective termination 2018. Details: 1st trimester 4. live 08/19/2020. Details: Vaginal delivery 5. miscarriage 2022. Details: 1st trimester Lab Tests Test Date Result NIPT Low risk, Male Maternal Assessment Physical Exam Height 175 cm, 5 ft 9 in. Weight 127 kg, 279 lb. Initial weight 122 kg, 268 lb. BMI 41.20 kg/m . Initial BMI 39.58 kg/m . Weight gain 5 kg, 11 lb Method ====== Transabdominal ultrasound examination. View: Sufficient ========= Coombs . Number of fetuses: 1 Dating ====== Date Details Gest. age [place] LMP 02/15/2024 34 w + 0 d 11/21/2024 Stated [place] 34 w + 0 d 11/21/2024 Previous U/S 04/11/2024 GA, GA 7 w + 4 d 33 w + 4 d 11/24/2024 Assigned dating based on the LMP, selected on 07/05/2024 34 w + 0 d 11/21/2024 General Evaluation Cardiac activity present. FHR 152 bpm. Presentation: cephalic Placenta: Placental site: anterior no previa Amniotic Fluid Assessment ==== Amount of AF: normal MVP 6.1 cm. LASHANDA 15.5 cm. Q1 6.1 cm, Q2 2.9 cm, Q3 3.4 cm, Q4 3.1 cm Biophysical Profile 2: breathing movements 2: Gross body movements 2: tone 2: Amniotic fluid volume NST: reactive 11/29 Biophysical profile score Non Stress Test NST interpretation: reactive. Test duration 40 min. Baseline FHR 140 bpm. Baseline variability: moderate. Accelerations: present. Decelerations: absent. Uterine activity: absent Biometry BPD 85.3 mm 34w 3d 59% Hadlock HC 320.0 mm 36w 0d 68% Hadlock AC 344.3 mm 38w 2d >99% Hadlock Femur 66.6 mm 34w 2d 48% Hadlock Humerus 61.8 mm 35w 5d 94% Jovan HC / AC 0.93 Weight Calculation: EFW 3,000 g 98% Hadlock EFW (lb,oz) 6 lb 10 oz EFW by Hadlock (SMM-CC-HS-FL) LGA Growth Overview Exam date GA BPD [...] >99% 61 63% 57.2 97% 2232 >99% 10/10/2024 34w 0d 85.3 59% 320 68% 344.3 >99% 66.6 48% 61.8 94% 3000 98% Anatomy The following structures appear abnormal: Abdomen Kidneys: lefty pelvic kidney with possible renal fusion of the inferior pole. The following structures appear normal: Abdomen Stomach. Bladder. sex: male. Impression ========= Here today for interval growth ultrasounds and testing secondary to GDM A1 with now elevated fasting blood sugars along with AMA. She is status post [facility] HOME consultation due to left pelvic kidney with possible fusion of the inferior poles of the kidneys. She also has follow up M appointment today. Single, live, intrauterine at 34w 0d The growth is suspected LGA. The amniotic fluid volume is normal. Normal appearing anterior placenta The biophysical profile is reassuring 11/29. Comment ======== The biometry showing good interval growth in the estimated weight is suspected LGA which may be either constitutional or secondary to her GDM. The amniotic fluid is normal and there are good movements noted. Reevaluation of the kidneys still shows left pelvic kidney with possible fusion of the inferior poles. Normal-appearing bladder no other abnormalities were noted. ultrasound alone cannot detect all structural, genetic, or functional , placental, or maternal abnormalities Follow-up ======== To continue with weekly testing if insulin is started then would increase frequency to twice weekly testing and repeat interval growth ultrasound in 4 weeks if remains undelivered. Will also re-evaluate kidneys at subsequent growth ultrasounds sooner if clinically warranted. Reinforce importance of good glycemic control and outcome. labor and preeclampsia precautions along with kick counts. Thank you for allowing us to partake in your patient's care. Coding ====== Procedures 05708: [place] [address]: Biophysical Profile W NST [facility] [employer] PACS Anatomical Region Laterality Modality Other 10/10/2024 9:16 AM CDT Toni Peguero DO [facility] ORDERABLES Edited Result - Final documented in this encounter Visit Diagnoses Diagnosis 33 weeks gestation of (HCC)- Primary state, incidental AMA (advanced maternal age) multigravida 35+, third trimester (HCC) with history of section, antepartum ([facility]) History of gestational diabetes in prior , currently ([facility]) with other poor obstetric history Gestational diabetes mellitus (GDM) in third trimester, gestational diabetes method of control unspecified (HCC) abnormality affecting management of mother, single or unspecified fetus (HCC) Elevated blood pressure reading in office without diagnosis of hypertension 34 weeks gestation of ([facility])- Primary state, incidental AMA (advanced maternal age) multigravida 35+, third trimester ([facility]) with history of section, antepartum ([facility]) History of gestational diabetes in prior , currently ([facility]) with other poor obstetric history Gestational diabetes mellitus (GDM) in third trimester, gestational diabetes method of control unspecified ([facility]) abnormality affecting management of mother, single or unspecified fetus (HCC) Elevated blood pressure reading in office without diagnosis of hypertension 34 weeks gestation of ([facility])- Primary state, incidental AMA (advanced maternal age) multigravida 35+, third trimester ([facility]) with history of section, antepartum ([facility]) History of gestational diabetes in prior , currently ([facility]) with other poor obstetric history Gestational diabetes mellitus (GDM) in third trimester, gestational diabetes method of control unspecified ([facility]) abnormality affecting management of mother, single or unspecified fetus (HCC) 34 weeks gestation of ([facility])- Primary state, incidental AMA (advanced maternal age) multigravida 35+, third trimester ([facility]) with history of section, antepartum ([facility]) Gestational diabetes mellitus (GDM) in third trimester, gestational diabetes method of control unspecified ([facility]) abnormality affecting management of mother, single or unspecified fetus (HCC) Elevated blood pressure reading in office without diagnosis of hypertension 34 weeks gestation of ([facility])- Primary state, incidental AMA (advanced maternal age) multigravida 35+, third trimester ([facility]) Gestational diabetes mellitus (GDM) in third trimester, gestational diabetes method of control unspecified ([facility]) abnormality affecting management of mother, single or unspecified fetus (HCC) History of gestational diabetes mellitus (GDM) documented in this encounter Care Teams Filenet Developer Relationship Specialty Start Date End Date Unknown, Provider PCP - General 07/05/24 documented as of this encounter
[2024-10-11] VITALS (32 sets, daily range): BP systolic 133–134; BP diastolic 80–86; PULSE 86–105; O2SAT 98–100
--- OUTSIDE RECORDS SUMMARY | 2024-10-11 20:18 | XMS_ITS | Encounter Summary ---
Author Organization [facility] Address [address] [place] [address] Care Team Providers Care Machine Joiner Cementer Name Role Phone VenturaFarhad DO Primary Care Provider Encounter Details Date Type Department Care Team (Late st Contact Info) Description 10/30/2002 Outpatient Historical [facility] [address] [place] [address] [place] [address] [place] [address] Social History Tobacco Use Types Packs/Day Years Used Date Smoking Tobacco: Never Assessed Comments Unknown Sex and Gender Information Value Date Recorded Sex Assigned at Not on file Legal Sex Female 4:25 AM PRESSER ALL AROUND Gender Identity Not on file Sexual Orientation Not on file documented as of this encounter Plan of Treatment Not on file documented as of this encounter Visit Diagnoses Not on filedocumented in this encounter Additional Health Concerns Infection Onset Date Last Indicated Resolved Time R/O COVID-19 03/17/2021 03/18/2021 03/19/2021 1:53 AM PRESSER ALL AROUND documented as of this encounter Care Teams Machine Joiner Cementer Relationship Specialty [place] [address] [place] [address] PCP - General Internal Medicine 01/24/22 documented as of this encounter
--- OUTSIDE RECORDS SUMMARY | 2024-10-11 20:18 | XMS_ITS | Encounter Summary ---
Author Organization [employer] [facility] Address [address] [place] [address] Care Team Providers Care Head Of Global Strategic Partnerships Name Role Phone VenturaFarhad DO Primary Care Provider Encounter Details Date Type Department Care Team (Late st Contact Info) Description 12/17/1999 Outpatient Historical [facility] [address] [place] [address] [place] [address] [place] [address] Social History Tobacco Use Types Packs/Day Years Used Date Smoking Tobacco: Never Assessed Comments Unknown Sex and Gender Information Value Date Recorded Sex Assigned at Not on file Legal Sex Female 4:25 AM FOOD PRODUCTION MANAGER Gender Identity Not on file Sexual Orientation Not on file documented as of this encounter Plan of Treatment Not on file documented as of this encounter Visit Diagnoses Not on filedocumented in this encounter Additional Health Concerns Infection Onset Date Last Indicated Resolved Time R/O COVID-19 03/17/2021 03/18/2021 03/19/2021 1:53 AM FOOD PRODUCTION MANAGER documented as of this encounter Care Teams Head Of Global Strategic Partnerships Relationship Specialty Start [place] [address] [place] [address] PCP - General Internal Medicine 01/24/22 documented as of this encounter
--- OUTSIDE RECORDS SUMMARY | 2024-10-11 20:18 | XMS_ITS | Clinical Summary ---
Author Organization [employer] Randee Duvall Address [address] [place] [address] Phone Care Team Providers Care House Shorer Name Role Phone Farhad Whitehead DO Primary [...] 04/01/2024 Active fluticasone propionate (FLONASE) 50 mcg/spray Terry, Suspension nasal inhalerIndicatio ns:Viral upper respiratory infection [...] 11/30/19 23 Leakage of amniotic fluid 08/19/2020 MATH AND SCIENCE DIVISION CHAIR , GDMA1, Girl 08/19/2020 023 Threatened premature [...] Encounters Date Type Department Care Team Description 10/08/2024 External Device Data STL ABSTRACTION Provider, Abstract 09/25/2024 External Device Data STL ABSTRACTION Provider, Abstract [...] COVID-19 VACCINE - EMERGENCY USE AUTHORIZATION, MRNA, [id number](PF) 30 MCG/0.3 ML IM SUSP 09/14/2020,08/26/2020 (TDVAX)(7 [...] on file Legal Sex Female 4:25 AM NURSE INTERN Gender Identity Not on file Sexual [...] SCREEN PAP W/HPV Routine 01/11/2024 12:01 PM NURSE INTERN Well woman exam with routine gynecological exam Screening for cervical cancer Special screening examination for human papillomavirus (HPV) from Last 3 Months or Most Recently Relevant to Health Maintenance Results * CERV/VAG CYTO SCREEN PAP W/HPV (01/11/2024 12:01 PM NURSE INTERN) Pathologist [facility] CLINICAL INFORMATION [facility] Comment:SCREENING LAST MENSTRUAL PERIOD [facility] Comment:NONE GIVEN PREV PAP: [facility] Comment:NONE GIVEN PREV BX: [facility] Comment:NONE GIVEN SOURCE [facility] Comment:ENDOCERVIX ADEQUACY: [facility] Comment: Satisfactory for evaluation. Endocervical/transformation zone component present. Age and/or menstrual status not provided PAP INTERP [facility] Comment: Cytology Results: Negative for intraepithelial lesion or malignancy. COMMENT (PAP TEST) [facility] Comment: This Pap test has been evaluated with computer assisted technology. NECK BAND OPERATOR: [facility] Comment: YQ, CT(ASCP) CT screening location: [place] [address] [place] [address] EXPLANATORY NOTE [facility] [place] Comment: EXPLANATORY NOTE: The Pap is a [...] information. HPV E6/E7 Not Detected Not Detected [facility] Comment: Methodology: Policy Change Clerks Supervisor-Mediated Amplification This assay detects E6/E7 viral messenger RNA (mRNA) from 14 high-risk HPV types (16,18,31,33,35,39,45,51,52,56,58,59,66,68). Cervical sources are required for HPV testing. If a vaginal source from a patient who has had a total hysterectomy with removal of cervix was submitted, please contact the testing laboratory for alternative testing options. For additional information, please refer to http://education.Banno/faq/MGW347c3 (This link if provided for information/ educational purposes only.) Test Performed at: [facility] [address] [place] [address] Duglas MATHIS Genital SWAB OF ENDOCERVIX / Unknown 01/11/2024 12:01 PM NURSE INTERN 01/12/2024 1:29 AM NURSE INTERN us Ann Bryant MATH AND SCIENCE DIVISION CHAIR PATHOLOGY/CYTOLOGY ORDERABLE S Final Result [facility] [phone] [facility] [address] [place] [phone] from Last 3 Months or Most Recently Relevant to Health Maintenance Insurance [facility] [place] [address] [address] [place] [address] [employer] [facility] [place] [address] Advance Directives For more information, please contact: [phone] * Full Code (Latest Code Status on [...] 10:11 AM 05/14/2020 2:33 PM Care Teams House Shorer Relationship Specialty Start [place] [address] [facility] [address] [place] [address] PCP - General Internal Medicine 01/24/22
--- OUTSIDE RECORDS SUMMARY | 2024-10-11 20:18 | XMS_ITS | Encounter Summary ---
Author Organization [facility] Address [address] [place] [address] Care Team Providers Care Mail Rider Name Role Phone VenturaFarhadda DO Primary Care Provider Encounter Details Date Type Department Care Team (Late st Contact Info) Description 2005 Outpatient Historical [facility] [address] [place] [address] [place] [address] [place] [address] Social History Tobacco Use Types Packs/Day Years Used Date Smoking Tobacco: Never Assessed Comments Unknown Sex and Gender Information Value Date Recorded Sex Assigned at Not on file Legal Sex Female 4:25 AM MATERIAL PLANNER Gender Identity Not on file Sexual Orientation Not on file documented as of this encounter Plan of Treatment Not on file documented as of this encounter Visit Diagnoses Not on filedocumented in this encounter Additional Health Concerns Infection Onset Date Last Indicated Resolved Time R/O COVID-19 03/17/2021 03/18/2021 03/19/2021 1:53 AM MATERIAL PLANNER documented as of this encounter Care Teams Mail Rider Relationship Specialty Start [place] [address] [place] [address] PCP - General Internal Medicine 01/24/22 documented as of this encounter
--- OUTSIDE RECORDS SUMMARY | 2024-10-11 20:18 | XMS_ITS | Encounter Summary ---
Author Organization [facility] Address [address] [place] [address] Care Team Providers Care Shoulder Puncher Name Role Phone Farhad Whitehead DO Primary Care Provider Encounter Details Date Type Department Care Team (Late st Contact Info) Description 01/03/2002 Outpatient Historical [facility] [address] [place] [address] Natalee Julien MD [address] [address] Social History Tobacco Use Types Packs/Day Years Used Date Smoking Tobacco: Never Assessed Comments Unknown Sex and Gender Information Value Date Recorded Sex Assigned at Not on file Legal Sex Female 4:25 AM POULTRY PROCESSING SUPERVISOR Gender Identity Not on file Sexual Orientation Not on file documented as of this encounter Plan of Treatment Not on file documented as of this encounter Visit Diagnoses Not on filedocumented in this encounter Additional Health Concerns Infection Onset Date Last Indicated Resolved Time R/O COVID-19 03/17/2021 03/18/2021 03/19/2021 1:5 3 AM POULTRY PROCESSING SUPERVISOR documented as of this encounter Care Teams Shoulder Puncher Relationship Specialty Start Date End Date VenturaFarhad Garcia, [address] [place] [address] PCP - General Internal Medicine 01/24/22 documented as of this encounter
--- OUTSIDE RECORDS SUMMARY | 2024-10-11 20:18 | XMS_ITS | Encounter Summary ---
Author Organization [facility] Address [address] [place] [address] Care Team Providers Care Music Professionals Name Role Phone VenturaFarhad DO Primary Care Provider Encounter Details Date Type Department Care Team (Late st Contact Info) Description 03/09/2004 Outpatient Historical [facility] [address] [place] [address] [place] [address] [place] [address] Social History Tobacco Use Types Packs/Day Years Used Date Smoking Tobacco: Never Assessed Comments Unknown Sex and Gender Information Value Date Recorded Sex Assigned at Not on file Legal Sex Female 4:25 AM SCHEDULER MAINTENANCE Gender Identity Not on file Sexual Orientation Not on file documented as of this encounter Plan of Treatment Not on file documented as of this encounter Visit Diagnoses Not on filedocumented in this encounter Additional Health Concerns Infection Onset Date Last Indicated Resolved Time R/O COVID-19 03/17/2021 03/18/2021 03/19/2021 1:53 AM SCHEDULER MAINTENANCE documented as of this encounter Care Teams Music Professionals Relationship Specialty Start [place] [address] [place] [address] PCP - General Internal Medicine 01/24/22 documented as of this encounter
--- OUTSIDE RECORDS SUMMARY | 2024-10-11 20:18 | XMS_ITS | Encounter Summary ---
Author Organization [facility] Address [address] [place] [address] Care Team Providers Care Director Channel Name Role Phone VenturaFarhad DO Primary Care Provider Encounter Details Date Type Department Care Team (Late st Contact Info) Description 02/28/2003 Outpatient Historical [facility] [address] [place] [address] [place] [address] [place] [address] Social History Tobacco Use Types Packs/Day Years Used Date Smoking Tobacco: Never Assessed Comments Unknown Sex and Gender Information Value Date Recorded Sex Assigned at Not on file Legal Sex Female 4:25 AM LABELER Gender Identity Not on file Sexual Orientation Not on file documented as of this encounter Plan of Treatment Not on file documented as of this encounter Visit Diagnoses Not on filedocumented in this encounter Additional Health Concerns Infection Onset Date Last Indicated Resolved Time R/O COVID-19 03/17/2021 03/18/2021 03/19/2021 1:53 AM LABELER documented as of this encounter Care Teams Director Channel Relationship Specialty Start [place] [address] [place] [address] PCP - General Internal Medicine 01/24/22 documented as of this encounter
--- OUTSIDE RECORDS SUMMARY | 2024-10-11 20:18 | XMS_ITS | Encounter Summary ---
Author Organization [facility] Address [address] [place] [address] Care Team Providers Care Orthopedic Dentist Name Role Phone VenturaFarhad DO Primary Care Provider Encounter Details Date Type Department Care Team (Late st Contact Info) Description 07/02/2002 Outpatient Historical [facility] [address] [place] [address] [place] [address] [place] [address] Social History Tobacco Use Types Packs/Day Years Used Date Smoking Tobacco: Never Assessed Comments Unknown Sex and Gender Information Value Date Recorded Sex Assigned at Not on file Legal Sex Female 4:25 AM CRIMINAL INTELLIGENCE SPECIALIST Gender Identity Not on file Sexual Orientation Not on file documented as of this encounter Plan of Treatment Not on file documented as of this encounter Visit Diagnoses Not on filedocumented in this encounter Additional Health Concerns Infection Onset Date Last Indicated Resolved Time R/O COVID-19 03/17/2021 03/18/2021 03/19/2021 1:53 AM CRIMINAL INTELLIGENCE SPECIALIST documented as of this encounter Care Teams Orthopedic Dentist Relationship Specialty Start [place] [address] [place] [address] PCP - General Internal Medicine 01/24/22 documented as of this encounter
--- OUTSIDE RECORDS SUMMARY | 2024-10-11 20:18 | XMS_ITS | Clinical Summary ---
Author Organization [facility] Address [address] [place] [address] Care Team Providers Care Recruitment Officer Name Role Phone Unavailable Primary Care Provider [...]
--- OUTSIDE RECORDS SUMMARY | 2024-10-11 20:18 | XMS_ITS | Encounter Summary ---
Author Organization [facility] Address [address] [place] [address] Care Team Providers Care Hatchery Man Name Role Phone VenturaFarhadda DO Primary Care Provider Encounter Details Date Type Department Care Team (Late st Contact Info) Description 01/17/2000 Outpatient Historical [facility] [address] [place] [address] [place] [address] [place] [address] Social History Tobacco Use Types Packs/Day Years Used Date Smoking Tobacco: Never Assessed Comments Unknown Sex and Gender Information Value Date Recorded Sex Assigned at Not on file Legal Sex Female 4:25 AM SLATE ROOFER Gender Identity Not on file Sexual Orientation Not on file documented as of this encounter Plan of Treatment Not on file documented as of this encounter Visit Diagnoses Not on filedocumented in this encounter Additional Health Concerns Infection Onset Date Last Indicated Resolved Time R/O COVID-19 03/17/2021 03/18/2021 03/19/2021 1:53 AM SLATE ROOFER documented as of this encounter Care Teams Hatchery Man Relationship Specialty [place] [address] [place] [address] PCP - General Internal Medicine 01/24/22 documented as of this encounter
--- OUTSIDE RECORDS SUMMARY | 2024-10-11 20:18 | XMS_ITS ---
Author Organization [employer] (ClinicalSummary Clone) Address Unknown Care Team Providers Care Offset Assistant Press Operator Name Role Phone Unavailable Primary Care Physician Unavailab le Results * [UNITY] CARRIER SCREEN Performed by: Observe Medical Component Value Range Date Sickle Cell Disease/Beta-Thalassemia/Hemo globinopathies carrier screen NEGATIVE 05/20/2024 11:22 pm [facility] Alpha-Thalassemia carrier screen NEGATIVE 05/20/2024 11:22 pm [facility] Cystic Fibrosis carrier screen NEGATIVE 05/20/2024 11:22 pm [facility] Spinal Muscular Atrophy carrier screen NEGATIVE 2 SMN1 copies, SNP not present 05/20/2024 11:22 pm UT For detailed report, see PDF See PDF 05/20/2024 11:22 pm UTC 05/20/2024 11:2 2 pm [facility] Social History Observation Value Start Date End Date
--- OUTSIDE RECORDS SUMMARY | 2024-10-11 20:18 | XMS_ITS | Encounter Summary ---
Author Organization [facility] Address [address] [place] [address] Care Team Providers Care Volunteer Specialist Name Role Phone VenturaFarhad boone DO Primary Care Provider Encounter Details Date Type Department Care Team (Late st Contact Info) Description 05/17/2001 Outpatient Historical [facility] [address] [place] [address] Zay Chilel MD [address] [place] [address] Social History Tobacco Use Types Packs/Day Years Used Date Smoking Tobacco: Never Assessed Comments Unknown Sex and Gender Information Value Date Recorded Sex Assigned at Not on file Legal Sex Female 4:25 AM MILL LABORER Gender Identity Not on file Sexual Orientation Not on file documented as of this encounter Plan of Treatment Not on file documented as of this encounter Visit Diagnoses Not on filedocumented in this encounter Additional Health Concerns Infection Onset Date Last Indicated Resolved Time R/O COVID-19 03/17/2021 03/18/2021 03/19/2021 1:53 AM MILL LABORER documented as of this encounter Care Teams Volunteer Specialist Relationship Specialty Start Date [place] [address] [place] [address] PCP - General Internal Medicine 01/24/22 documented as of this encounter
--- OUTSIDE RECORDS SUMMARY | 2024-10-11 20:18 | XMS_ITS | Encounter Summary ---
Author Organization [facility] Address [address] [place] [address] Care Team Providers Care Driver Education Instructor Name Role Phone VenturaFarhad DO Primary Care Provider Encounter Details Date Type Department Care Team (Late st Contact Info) Description 05/22/2000 Outpatient Historical [facility] [address] [place] [address] [place] [address] [place] [address] Social History Tobacco Use Types Packs/Day Years Used Date Smoking Tobacco: Never Assessed Comments Unknown Sex and Gender Information Value Date Recorded Sex Assigned at Not on file Legal Sex Female 4:25 AM FLUTE POLISHER Gender Identity Not on file Sexual Orientation Not on file documented as of this encounter Plan of Treatment Not on file documented as of this encounter Visit Diagnoses Not on filedocumented in this encounter Additional Health Concerns Infection Onset Date Last Indicated Resolved Time R/O COVID-19 03/17/2021 03/18/2021 03/19/2021 1:53 AM FLUTE POLISHER documented as of this encounter Care Teams Driver Education Instructor Relationship Specialty Start [place] [address] [place] [address] PCP - General Internal Medicine 01/24/22 documented as of this encounter
--- OUTSIDE RECORDS SUMMARY | 2024-10-11 20:18 | XMS_ITS | Encounter Summary ---
Author Organization [facility] Address [address] [place] [address] Care Team Providers Care Acetylene Plant Operator Name Role Phone VenturaFarhad DO Primary Care Provider Encounter Details Date Type Department Care Team (Late st Contact Info) Description 05/03/2002 Outpatient Historical [facility] [address] [place] [address] [place] [address] [place] [address] Social History Tobacco Use Types Packs/Day Years Used Date Smoking Tobacco: Never Assessed Comments Unknown Sex and Gender Information Value Date Recorded Sex Assigned at Not on file Legal Sex Female 4:25 AM RAT POISONER Gender Identity Not on file Sexual Orientation Not on file documented as of this encounter Plan of Treatment Not on file documented as of this encounter Visit Diagnoses Not on filedocumented in this encounter Additional Health Concerns Infection Onset Date Last Indicated Resolved Time R/O COVID-19 03/17/2021 03/18/2021 03/19/2021 1:53 AM RAT POISONER documented as of this encounter Care Teams Acetylene Plant Operator Relationship Specialty Start [place] [address] [place] [address] PCP - General Internal Medicine 01/24/22 documented as of this encounter
--- OUTSIDE RECORDS SUMMARY | 2024-10-11 20:18 | XMS_ITS | Clinical Summary ---
Author Organization [facility] Address [facility] [place] [address] Care Team Providers Care Testing Coordinator Name Role Phone None, Provider MD Primary [...] patient's age to complete this topic [place] [address] [address] [facility] Care Teams Testing Coordinator Relationship Specialty Start Date End Date None, Provider, MD PCP - General UNKNOWN PHYSICIAN SPECIALTY 10/01/22
--- OUTSIDE RECORDS SUMMARY | 2024-10-11 20:18 | XMS_ITS | Encounter Summary ---
Author Organization [facility] Address [address] [place] [address] Care Team Providers Care Media Manager Name Role Phone VenturaFarhad DO Primary Care Provider Encounter Details Date Type Department Care Team (Late st Contact Info) Description 07/20/2001 Outpatient Historical [facility] [address] [place] [address] [place] [address] [place] [address] Social History Tobacco Use Types Packs/Day Years Used Date Smoking Tobacco: Never Assessed Comments Unknown Sex and Gender Information Value Date Recorded Sex Assigned at Not on file Legal Sex Female 4:25 AM TIRE MAN Gender Identity Not on file Sexual Orientation Not on file documented as of this encounter Plan of Treatment Not on file documented as of this encounter Visit Diagnoses Not on filedocumented in this encounter Additional Health Concerns Infection Onset Date Last Indicated Resolved Time R/O COVID-19 03/17/2021 03/18/2021 03/19/2021 1:53 AM TIRE MAN documented as of this encounter Care Teams Media Manager Relationship Specialty Start [place] [address] [place] [address] PCP - General Internal Medicine 01/24/22 documented as of this encounter
--- OUTSIDE RECORDS SUMMARY | 2024-10-11 20:18 | XMS_ITS | Encounter Summary ---
Author Organization [facility] Address [address] [place] [address] Care Team Providers Care Sound Controller Name Role Phone VenturaFarhadda DO Primary Care Provider Encounter Details Date Type Department Care Team (Late st Contact Info) Description 09/28/2006 Outpatient Historical [facility] [address] [place] [address] [place] [address] [place] [address] Social History Tobacco Use Types Packs/Day Years Used Date Smoking Tobacco: Never Assessed Comments Unknown Sex and Gender Information Value Date Recorded Sex Assigned at Not on file Legal Sex Female 4:25 AM FIRE PROTECTION ENGINEER Gender Identity Not on file Sexual Orientation Not on file documented as of this encounter Plan of Treatment Not on file documented as of this encounter Visit Diagnoses Not on filedocumented in this encounter Additional Health Concerns Infection Onset Date Last Indicated Resolved Time R/O COVID-19 03/17/2021 03/18/2021 03/19/2021 1:53 AM FIRE PROTECTION ENGINEER documented as of this encounter Care Teams Sound Controller Relationship Specialty Start [place] [address] [place] [address] PCP - General Internal Medicine 01/24/22 documented as of this encounter
--- OUTSIDE RECORDS SUMMARY | 2024-10-11 20:18 | XMS_ITS | Encounter Summary ---
Author Organization [facility] Address [address] [place] [address] Care Team Providers Care Sandwich Peddler Name Role Phone Farhad Whitehead DO Primary Care Provider Encounter Details Date Type Department Care Team (Late st Contact Info) Description 02/22/2005 Outpatient Historical [facility] [address] [place] [address] [place] [address] [place] [address] Social History Tobacco Use Types Packs/Day Years Used Date Smoking Tobacco: Never Assessed Comments Unknown Sex and Gender Information Value Date Recorded Sex Assigned at Not on file Legal Sex Female 4:25 AM LABORER TURKEY FARM Gender Identity Not on file Sexual Orientation Not on file documented as of this encounter Plan of Treatment Not on file documented as of this encounter Visit Diagnoses Not on filedocumented in this encounter Additional Health Concerns Infection Onset Date Last Indicated Resolved Time R/O COVID-19 03/17/2021 03/18/2021 03/19/2021 1:53 AM LABORER TURKEY FARM documented as of this encounter Care Teams Sandwich Peddler Relationship Specialty Start Date End Date VenturaFarhad GarciaDO [address] [place] [address] PCP - General Internal Medicine 01/24/22 documented as of this encounter
--- OUTSIDE RECORDS SUMMARY | 2024-10-11 20:18 | XMS_ITS | Encounter Summary ---
Author Organization [facility] Address [address] [place] [address] Care Team Providers Care Python Engineer Name Role Phone VenturaFarhad DO Primary Care Provider Encounter Details Date Type Department Care Team (Late st Contact Info) Description 10/19/2001 Outpatient Historical [facility] [address] [place] [address] [place] [address] [place] [address] Social History Tobacco Use Types Packs/Day Years Used Date Smoking Tobacco: Never Assessed Comments Unknown Sex and Gender Information Value Date Recorded Sex Assigned at Not on file Legal Sex Female 4:25 AM CAR VARNISHER Gender Identity Not on file Sexual Orientation Not on file documented as of this encounter Plan of Treatment Not on file documented as of this encounter Visit Diagnoses Not on filedocumented in this encounter Additional Health Concerns Infection Onset Date Last Indicated Resolved Time R/O COVID-19 03/17/2021 03/18/2021 03/19/2021 1:53 AM CAR VARNISHER documented as of this encounter Care Teams Python Engineer Relationship Specialty Start [place] [address] [place] [address] PCP - General Internal Medicine 01/24/22 documented as of this encounter
--- OUTSIDE RECORDS SUMMARY | 2024-10-11 20:18 | XMS_ITS | Clinical Summary ---
Author Organization [facility] Address [address] [place] [address] Care Team Providers Care Iv Therapy Nurse Name Role Phone Unknown, Provider Primary Care Provider Unavaila ble Source Comments [facility],non-owned Affiliates and Associated Physician Practices is amultiple site organization consisting of ambulatory clinics and hospital sitesin [place], [place], [place] and [place]. This disclosure is being madepursuant to the Care Everywhere program and may not contain all information available regarding this patient. Last updated 17.[facility] [employer] Allergies Active Allergy Reactions Criticality Noted Date [...] (one) tablet by mouth once daily Active Aspirin 81 MG CAPS DAILY 08/26/2024 Active Continuous Glucose Sensor (FreeStyle Samantha 2 Sensor Systm) MISC CHECK BLOOD SUGARS 4 TIMES A DAY 09/09/2024 Active Active Problems Patient Care Coordination No te Formatting of this note migh t be different from the original. Please see care plan in problem list. Problem Noted Date Diagnosed Date Depression screen 08/22/2024 Overview (08/22/2024): 08/22/2024 Zohreh Kevin was screened for depression using the [place] Depression Scale (EPDS) at her [facility] initial evaluation on 08/22/2024. Her initial score at baseline was 4. Based off of her score of 4, Zohreh does not warrant follow up. Patient will continue to be screened throughout , at intervals no closer than two weeks, for continued surveillance and early identification of depression until delivery. Patient reports mental health history. Diagnoses include anxiety. SENIOR LIVING- abnormality in (HCC)- Pelvic Kidney 07/30/2024 Overview (08/26/2024): Images from the original note were not included. SENIOR LIVING PATIENT--PLEASE CALL [phone] (ex 2) IF TRIAGED OR ADMITTED Care Provider: Dr. Davis; [facility] Care [facility] consultants involved: Marissa- Nurse Navigator; Dr. 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 on 08/01; Initial SENIOR LIVING appointment on 08/22; Follow-up ultrasound in 4 weeks at the [facility] office in [place], [place] for growth and AFV; Released from SENIOR LIVING 08/22/24 Delivery location: [facility] Delivery mode: Per usual OB indications Desired Delivery GA: Per usual OB indications follow up: Per Dr. Villa: -recommend renal ultrasound in first week of life; -follow up with pediatric nephrology at 1 month of life with repeat renal ultrasound; -call office with interval concerns. Mortuary Operations Manager: Dr. Mckeon through [facility] Stock Dealer Concerns: 08/22/2024-Patient with history of anxiety- does take medication Care plan based on evaluation and is subject to change based on assessment. See Images or Cardiac under Chart Review for US/ ECHO/ MRI reports. Estimated Date of Delivery Comme nts Yes 11/21/2024 Based on last me nstrual period of 02/15/2024 Encounters Date Type Department Care Team Description 10/10/2024 8:55 AM CDT - 10/10/2024 11:59 PM CDT Hospital Encounter [facility] [address] [facility] [place] [address] Toni Peguero DO Discharge Disposition: Home or Self Care 09/26/2024 Telephone [facility] [address] [place] [address] Mine Elizabeth Appointment 09/17/2024 7:30 AM CDT - 09/17/2024 11:59 PM CDT Hospital Encounter [facility] [address] [place] [address] Blayne Mancera MD Discharge Disposition: Home or Self Care 08/22/2024 12:00 PM CDT - 08/22/2024 11:59 PM CDT Hospital Encounter [address] [address] Manny Miles MD MULTIMEDIA ARTIST Discharge Disposition: Home or Self Care 08/21/[address] [address] Lorena Jarrett Reminder Call 08/01/2024 7:30 AM CDT - 08/01/2024 11:59 PM CDT Hospital Encounter [facility] [address] [place] [address] Farhad Casarez MD Dildy, Gary A, MD Discharge Disposition: Home or Self Care 07/29/[address] [address] Makeda Garcia, zanjero 07/29/[address] [address] Makeda Garcia, zanjero 07/26/[address] [address] Makeda Garcia, zanjero from Last 3 Months Social History Tobacco [...] money to get more. Never true 08/22/2024 [place] Depression Scale Answer Date Recorded [place] Depression Scale Total 4 08/22/2024 The thought of harming myself has occurred to me . Never 08/22/2024 Estimated Date of Delivery Comme nts Yes 11/21/2024 Based on last me nstrual period of 02/15/2024 Sex and Gender Information Value Date Recorded Sex Assigned at Not on file Legal Sex Female 6:23 AM COMPUTER SYSTEMS SECURITY ADMINISTRATOR Gender Identity Not on file Sexual Orientation Not on file Last Filed Vital Signs Vital Sign Reading Time Taken Comments Blood Pressure 140/85 10/10/2024 9:51 AM CDT Pulse 88 10/10/2024 9:51 AM CDT Temperature - - Respiratory Rate - - Oxygen Saturation - - Inhaled Oxygen Concentration - - Weight 126.6 kg (279 lb) 10/10/2024 9:40 AM CDT Height 175.3 cm (5' 9) 07/05/2024 8:54 AM CDT Body Mass Index 41.2 07/05/2024 8:54 AM CDT Plan of Treatment Upcoming Encounters Date Type Department Care Team (Late st Contact Info) Description 10/15/2024 7:30 AM CDT Hospital Encounter [facility] [address] [place] [address] Farhad Casarez MD [address] [address] 10/15/2024 8:15 AM CDT Hospital Encounter [facility] [address] [place] [address] Farhad Casarez MD [address] [address] 10/15/2024 9:00 AM CDT Hospital Encounter [facility] [address] [place] [address] Farhad Casarez MD [address] [facility] [address] [place] [address] 10/15/2024 9:45 AM CDT Hospital Encounter [facility] [address] [place] [address] Farhad Casarez MD [address] [facility] [address] [place] [address] 10/29/2024 7:30 AM CDT Appointment [facility] [address] [place] [address] 10/29/2024 8:15 AM CDT Appointment [facility] [address] [place] [address] 10/29/2024 8:15 AM CDT Appointment [facility] [address] [place] [address] 10/29/2024 8:15 AM CDT Appointment [facility] [address] [place] [address] 11/05/2024 7:30 AM CDT Appointment [facility] [address] [place] [address] 11/05/2024 8:15 AM CDT Appointment [facility] [address] [place] [address] 11/05/2024 8:15 AM CDT Appointment [facility] [address] [place] [address] 11/12/2024 7:30 AM CDT Appointment [facility] [address] [place] [address] 11/12/2024 8:15 AM CDT Appointment [facility] [address] [place] [address] 11/12/2024 9:00 AM CDT Appointment [facility] [address] [facility] [place] [address] 11/12/2024 9:45 AM CDT Appointment [facility] [address] [facility] [place] [address] Health Maintenance Due Date Last Done Comments HIV SCREENING 10/01/2003 HEPATITIS C SCREENING 09/26/2006 DTAP/TDAP/TD VACCINES (1 - Tdap) 10/01/2007 HEPATITIS B VACCINE (1 of 3 - 19+ 3-dose series) 10/01/2007 HPV VACCINE (1 - 3-dose SCDM series) 10/01/2015 COVID-19 VACCINE (2023-2 5 season) 2023 03/26/2021, 09/14/2020, 08/26/2020 OB-ONE HOUR GLUCOSE 08/15/2024 OB-TDAP CURRENT 08/22/20242020, 10/15/2012 OB-RHOGAM INJECTION 08/29/2024 OB-GROUP B STREP SCREEN 10/17/2024 INFLUENZA VACCINE (#1) 2024 Respiratory Syncytial Virus [...] (advanced maternal age) multigravida 35+, third trimester ([facility]) with history of section, antepartum ([facility]) History of gestational diabetes in prior , currently ([facility]) Gestational diabetes mellitus (GDM) in third trimester, gestational diabetes method of control unspecified ([facility]) abnormality affecting management of mother, single or unspecified fetus ([facility]) SONOGRAM - COMPLETE Routine 09/17/2024 7 :49 AM CDT 30 weeks gestation of ([facility]) SENIOR LIVING- abnormality in ([facility])- Pelvic Kidney Encounter for ultrasound to assess growth ([facility]) SONOGRAM - COMPLETE Routine 08/22/2024 1 2:38 PM CDT abnormality affecting management of mother, single or unspecified fetus ([facility]) SONOGRAM - COMPLETE Routine 08/01/2024 7 :33 AM CDT Sixth ([facility]) History of History of delivery History of gestational diabetes mellitus (GDM) 23 weeks gestation of ([facility]) Encounter for ultrasound ([facility]) from Last 3 Months Results * Biophysical Profile w NST (10/10/2024 [...] History ====== OB History 6. Para 2 [id number] 1. miscarriage 2014. Details: 1st trimester 2. [...] 6 lb 10 oz EFW by Hadlock ([id number]) LGA Growth Overview Exam date GA BPD [...] along with AMA. She is status post SENIOR LIVING consultation due to left pelvic kidney with possible fusion of the inferior poles of the kidneys. She also has follow up MFM appointment today. Single, live, intrauterine at 34w [...] in your patient's care. Coding ====== Procedures 11522: [place] [address]: Biophysical Profile W NST [place] PACS Anatomical Region Laterality Modality Other 10/10/2024 9:16 AM CDT Toni Peguero DO [facility]FM ORDERABLES Edited Result - Final * Sonogram - Complete (09/17/2024 7:49 AM CDT) Only the most recent of3 resultswithin the time period is included. Linked Results Indication ======== Advanced maternal age (AMA), multigravida Maternal obesity complicating , class 2 (BMI 35.0 - 39.9) abnormality, unspecified pelvic kidney Anxiety on Zoloft , Prior C/S History ====== OB History 6. Para 2 [id number] 1. miscarriage 2014. Details: 1st trimester 2. [...] 4 lb 15 oz EFW by Hadlock ([id number]) LGA Growth Overview Exam date [place] BPD [...] at 36 weeks gestation Coding ====== Procedures 65623: US Preg Uterus Follow Up [facility] [place] PACS Anatomical Region Laterality Modality Other 09/17/2024 7:49 AM CDT us Sarita Davis MD [facility] ORDERABLES Edited Resu lt - Final from Last 3 Months Insurance [employer] Member Subscriber Plan / Payer (Ef fective 2024-Present) Name:Zohreh Kevin Relation to Subscriber:Spouse Name:KATI COOLEY Date of :1990 (Home) Address: [address] [place] [address] [place] [address] Payer ID:[id number] (NAIC) Type:O Address: [address] [address] [place] [address] Care Teams Iv Therapy Nurse Relationship Specialty Start Date End Date Unknown, Provider PCP - General 07/05/24
--- OUTSIDE RECORDS SUMMARY | 2024-10-11 20:18 | XMS_ITS | Encounter Summary ---
Author Organization [facility] Address [address] [place] [address] Care Team Providers Care Software Designer Name Role Phone VenturaFarhad DO Primary Care Provider Encounter Details Date Type Department Care Team (Late st Contact Info) Description 11/08/2005 Outpatient Historical [facility] [address] [place] [address] [place] [address] [place] [address] Social History Tobacco Use Types Packs/Day Years Used Date Smoking Tobacco: Never Assessed Comments Unknown Sex and Gender Information Value Date Recorded Sex Assigned at Not on file Legal Sex Female 4:25 AM VP INFORMATION TECHNOLOGY Gender Identity Not on file Sexual Orientation Not on file documented as of this encounter Plan of Treatment Not on file documented as of this encounter Visit Diagnoses Not on filedocumented in this encounter Additional Health Concerns Infection Onset Date Last Indicated Resolved Time R/O COVID-19 03/17/2021 03/18/2021 03/19/2021 1:53 AM VP INFORMATION TECHNOLOGY documented as of this encounter Care Teams Software Designer Relationship Specialty Start [place] [address] [place] [address] PCP - General Internal Medicine 01/24/22 documented as of this encounter
--- OUTSIDE RECORDS SUMMARY | 2024-10-11 20:18 | XMS_ITS | Encounter Summary ---
Author Organization [facility] Address [address] [place] [address] Care Team Providers Care Sustainable Design Consultant Name Role Phone VenturaFarhad DO Primary Care Provider Encounter Details Date Type Department Care Team (Late st Contact Info) Description 09/02/2004 Outpatient Historical [facility] [address] [place] [address] [place] [address] [place] [address] Social History Tobacco Use Types Packs/Day Years Used Date Smoking Tobacco: Never Assessed Comments Unknown Sex and Gender Information Value Date Recorded Sex Assigned at Not on file Legal Sex Female 4:25 AM IMPROVEMENT ANALYST Gender Identity Not on file Sexual Orientation Not on file documented as of this encounter Plan of Treatment Not on file documented as of this encounter Visit Diagnoses Not on filedocumented in this encounter Additional Health Concerns Infection Onset Date Last Indicated Resolved Time R/O COVID-19 03/17/2021 03/18/2021 03/19/2021 1:53 AM IMPROVEMENT ANALYST documented as of this encounter Care Teams Sustainable Design Consultant Relationship Specialty Start [place] [address] [place] [address] PCP - General Internal Medicine 01/24/22 documented as of this encounter
--- OUTSIDE RECORDS SUMMARY | 2024-10-11 20:18 | XMS_ITS | Encounter Summary ---
Author Organization [facility] Address [address] [place] [address] Care Team Providers Care Size Stamper Name Role Phone VenturaFarhad DO Primary Care Provider Encounter Details Date Type Department Care Team (Late st Contact Info) Description 07/11/2003 Outpatient Historical [facility] [address] [place] [address] [place] [address] [place] [address] Social History Tobacco Use Types Packs/Day Years Used Date Smoking Tobacco: Never Assessed Comments Unknown Sex and Gender Information Value Date Recorded Sex Assigned at Not on file Legal Sex Female 4:25 AM SOLID WASTE MANAGER Gender Identity Not on file Sexual Orientation Not on file documented as of this encounter Plan of Treatment Not on file documented as of this encounter Visit Diagnoses Not on filedocumented in this encounter Additional Health Concerns Infection Onset Date Last Indicated Resolved Time R/O COVID-19 03/17/2021 03/18/2021 03/19/2021 1:53 AM SOLID WASTE MANAGER documented as of this encounter Care Teams Size Stamper Relationship Specialty Start [place] [address] [place] [address] PCP - General Internal Medicine 01/24/22 documented as of this encounter
--- OUTSIDE RECORDS SUMMARY | 2024-10-11 20:18 | XMS_ITS | Encounter Summary ---
Author Organization [facility] Address [address] [place] [address] Care Team Providers Care Md Senior Research Scientist Name Role Phone VenturaFarhad DO Primary Care Provider Encounter Details Date Type Department Care Team (Late st Contact Info) Description 11/02/2004 Outpatient Historical [facility] [address] [place] [address] [place] [address] [place] [address] Social History Tobacco Use Types Packs/Day Years Used Date Smoking Tobacco: Never Assessed Comments Unknown Sex and Gender Information Value Date Recorded Sex Assigned at Not on file Legal Sex Female 4:25 AM EXPORT SPECIALIST Gender Identity Not on file Sexual Orientation Not on file documented as of this encounter Plan of Treatment Not on file documented as of this encounter Visit Diagnoses Not on filedocumented in this encounter Additional Health Concerns Infection Onset Date Last Indicated Resolved Time R/O COVID-19 03/17/2021 03/18/2021 03/19/2021 1:53 AM EXPORT SPECIALIST documented as of this encounter Care Teams Md Senior Research Scientist Relationship Specialty Start [place] [address] [place] [address] PCP - General Internal Medicine 01/24/22 documented as of this encounter
--- OUTSIDE RECORDS SUMMARY | 2024-10-11 20:18 | XMS_ITS | Encounter Summary ---
Author Organization [facility] Address [address] [place] [address] Care Team Providers Care Transplanter Orchid Name Role Phone VenturaFarhad DO Primary Care Provider Encounter Details Date Type Department Care Team (Late st Contact Info) Description 08/04/2000 Outpatient Historical [facility] [address] [place] [address] [place] [address] [place] [address] Social History Tobacco Use Types Packs/Day Years Used Date Smoking Tobacco: Never Assessed Comments Unknown Sex and Gender Information Value Date Recorded Sex Assigned at Not on file Legal Sex Female 4:25 AM GOLF CART REPAIRER Gender Identity Not on file Sexual Orientation Not on file documented as of this encounter Plan of Treatment Not on file documented as of this encounter Visit Diagnoses Not on filedocumented in this encounter Additional Health Concerns Infection Onset Date Last Indicated Resolved Time R/O COVID-19 03/17/2021 03/18/2021 03/19/2021 1:53 AM GOLF CART REPAIRER documented as of this encounter Care Teams Transplanter Orchid Relationship Specialty Start [place] [address] [place] [address] PCP - General Internal Medicine 01/24/22 documented as of this encounter
--- OUTSIDE RECORDS SUMMARY | 2024-10-11 20:18 | XMS_ITS | Encounter Summary ---
Author Organization [facility] Address [address] [place] [address] Care Team Providers Care Financial Planning Analyst Name Role Phone VenturaFarhad DO Primary Care Provider Encounter Details Date Type Department Care Team (Late st Contact Info) Description 04/09/2001 Outpatient Historical [facility] [address] [place] [address] [place] [address] [place] [address] Social History Tobacco Use Types Packs/Day Years Used Date Smoking Tobacco: Never Assessed Comments Unknown Sex and Gender Information Value Date Recorded Sex Assigned at Not on file Legal Sex Female 4:25 AM PRINTING PRESSMAN Gender Identity Not on file Sexual Orientation Not on file documented as of this encounter Plan of Treatment Not on file documented as of this encounter Visit Diagnoses Not on filedocumented in this encounter Additional Health Concerns Infection Onset Date Last Indicated Resolved Time R/O COVID-19 03/17/2021 03/18/2021 03/19/2021 1:53 AM PRINTING PRESSMAN documented as of this encounter Care Teams Financial Planning Analyst Relationship Specialty Start [place] [address] [place] [address] PCP - General Internal Medicine 01/24/22 documented as of this encounter
--- OUTSIDE RECORDS SUMMARY | 2024-10-11 20:18 | XMS_ITS | Encounter Summary ---
Author Organization [facility] Address [address] [place] [address] Care Team Providers Care Fisher Mussel Name Role Phone Farhad Whitehead DO Primary Care Provider Encounter Details Date Type Department Care Team (Late st Contact Info) Description 01/18/2007 Outpatient Historical [facility] [id number] [place] [address] [place] [address] [place] [address] Social History Tobacco Use Types Packs/Day Years Used Date Smoking Tobacco: Never Assessed Comments Unknown Sex and Gender Information Value Date Recorded Sex Assigned at Not on file Legal Sex Female 4:25 AM LOAN ORIGINATOR Gender Identity Not on file Sexual Orientation Not on file documented as of this encounter Plan of Treatment Not on file documented as of this encounter Visit Diagnoses Not on filedocumented in this encounter Additional Health Concerns Infection Onset Date Last Indicated Resolved Time R/O COVID-19 03/17/2021 03/18/2021 03/19/2021 1:53 AM LOAN ORIGINATOR documented as of this encounter Care Teams Fisher Mussel Relationship Specialty Start Date End Date [place] GarciaDO [address] [place] [address] PCP - General Internal Medicine 01/24/22 documented as of this encounter
--- OUTSIDE RECORDS SUMMARY | 2024-10-11 20:18 | XMS_ITS | Encounter Summary ---
Author Organization [facility] Address [address] [place] [address] Care Team Providers Care Dial Maker Name Role Phone VenturaFarhadda DO Primary Care Provider Encounter Details Date Type Department Care Team (Late st Contact Info) Description 12/08/2006 Outpatient Historical [facility] [address] [place] [address] [place] [address] [place] [address] Social History Tobacco Use Types Packs/Day Years Used Date Smoking Tobacco: Never Assessed Comments Unknown Sex and Gender Information Value Date Recorded Sex Assigned at Not on file Legal Sex Female 4:25 AM LACE PAPER MACHINE OPERATOR Gender Identity Not on file Sexual Orientation Not on file documented as of this encounter Plan of Treatment Not on file documented as of this encounter Visit Diagnoses Not on filedocumented in this encounter Additional Health Concerns Infection Onset Date Last Indicated Resolved Time R/O COVID-19 03/17/2021 03/18/2021 03/19/2021 1:53 AM LACE PAPER MACHINE OPERATOR documented as of this encounter Care Teams Dial Maker Relationship Specialty [place] [address] [place] [address] PCP - General Internal Medicine 01/24/22 documented as of this encounter
--- OUTSIDE RECORDS SUMMARY | 2024-10-11 20:18 | XMS_ITS | Encounter Summary ---
Author Organization [facility] Address [address] [place] [address] Care Team Providers Care Packaging Sales Consultant Name Role Phone Unavailable Primary Care Provider Unavailabl e Prior Encounters Date Type Department Care Team Description 03/11/2019 Converted CPS Chart Documents [facility] [address] [place] [address] <No scans attached> 03/11/2019 Converted 13x Documents [facility] [address] [place] [address] <No scans attached> Plan of Treatment Not on file Procedures Procedure Name Priority Date/Time Associated Diagnosis Comments COMPREHENSIVE ORAL EVALUATION - NEW OR ESTABLISHED PATIENT Routine 09/04/2018 2:00 AM CDT 19 CROWN - FULL CAST HIGH DORSEY METAL Routine 09/03/2018 2:00 AM CDT 31 SUE AMALGAM 2 SURFACE Routine 09/04/19 19 2:00 AM CDT 30 SEU AMALGAM 2 SURFACE Routine 09/04/19 19 2:00 AM CDT 19 ENDODONTIC THERAPY, MOLAR TOOTH (EXCLUDING FINAL ADVENT) Routine 09/03/2018 2:00 AM CDT PANORAMIC RADIOGRAPHIC [...]
[2024-10-11 20:50] LABS: Add Urine Microscopic? YES; Appearance Urine Cloudy (Clear); Glucose Urine UA Negative (Negative); Leukocyte Esterase Ur Trace LEU/UL (Negative); Nitrate Urine Negative (Negative); Non Pathogenic Casts 0-2; Specific Grav Ur 1.017 (1.001-1.035)
[2024-10-11] MEDS: TERBUTALINE SULFATE 1 MG/ML VIAL 0.25 MG SUB-Q ×2 (21:35→23:10)
[2024-10-12 00:04] VITALS: PULSE 104; O2SAT 99
[2024-10-12 00:09] VITALS: PULSE 100; O2SAT 100
[2024-10-12 00:14] VITALS: PULSE 105; O2SAT 99
[2024-10-12 00:17] VITALS: BMI 41.3
--- NOTE | 2024-10-12 00:18 | OBADM ---
This patient, Zohreh Kevin, admitted to the OB room Labor/Delivery/Recovery 105 for observation. Patient/family oriented to hospital policies and general routines including ID bracelet, bed and alarms, visiting hours, pain management, procedures, bathroom and other care routines, personal items, smoking policy, room service/diet, and visiting hours. Patient/Family are encouraged to report perceived risks to care and to ask questions if they do not understand what they are told or what they should do.
[2024-10-12 00:19] VITALS: PULSE 100; O2SAT 100
[2024-10-12 00:24] VITALS: PULSE 99; O2SAT 98
--- NOTE | 2024-10-15 07:55 | PM.OBTRLD ---
OB - Triage/Final Diagnosis Visit Information Reason for evaluation: threatened labor Comments/Additional reasons for admission: I have assessed the risk for this patient, Zohreh Kevin, and determined that she would benefit from observation care. Evaluation Laboratory results: Laboratory Tests 10/11/24 20:43 Urine Color Yellow Urine Appearance Cloudy H Urine pH 6.5 Ur Specific [place] 1.017 Urine Protein Negative Urine Glucose (UA) Negative Urine Ketones 1+ H Ur Blood (Man) Negative Urine Nitrate Negative Urine Bilirubin Negative Urine Urobilinogen 0.2 Leukocyte Esterase Rfl Trace H Urine RBC 0-2 Urine WBC 0-5 Ur Squamous Epith Cells Few Urine Bacteria None seen Urine Casts 0-2
== END 2024-10-12 00:35 | disposition home or self-care (01) ==
PROVIDERS: Admitting Provider Obstetrics & Gynecology; Visit Provider Obstetrics & Gynecology
DX: O47.03 False labor before 37 completed weeks of gestation, third trimester (principal); Z3A.34 34 weeks gestation of pregnancy
CPT/HCPCS: 81001; 96372; G0378; G0379; J3105

== ENCOUNTER 2024-10-16 21:39 | Observation (INO) | payer OTHER, SELFPAY ==
--- OUTSIDE RECORDS SUMMARY | 2002-10-29 19:00 | XMS_ITS | Continuity of Care Document ---
Author Organization [facility] Address [address] [place] [address] Phone Care Team Providers Care Tinning Machine Set Up Operator Name Role Phone Fran Kearney MD Unavailable Unavailable Advance Directives Directive Yes / No Effective Date File Name No Information Encounters Encounter Description Practice Location Reason(s) For Visit Diagnoses Date Provider Providers Copied on Encounter [facility], [address], [place], [place], [address], [place] tel:[phone] [facility] No Information Caio Peters. [address] [place], [place], [address], [place]. tel:[phone] Family History Family Member Type Diagnosis Age At Onset No Information Payers Payer name Insurance type Covered republican ID Authoriza tion(s) No Information Social History [...]
--- OUTSIDE RECORDS SUMMARY | 2016-07-26 19:00 | XMS_ITS | Continuity of Care Document ---
Author Organization [facility] Address [address] [place] [address] Phone Care Team Providers Care Relief Mate Name Role Phone Unavailable Unavailable Unavailable Advance Directives Directive Yes / No Effective Date File Name No Information Encounters Encounter Description Practice Location Reason(s) For Visit Diagnoses Date Provider Providers Copied on Encounter [facility], [address] [facility], [place], [place], [id number], tel:[phone] [facility] No Information 7201 7 No Information Referring Provider: MAKSIM Salter, [address] [facility] [address], [place], [address]. tel:[phone] Family History Family Member Type Diagnosis Age At Onset No Information Payers Payer name Insurance type Covered constitution party ID Authoriza timolina(s) [facility] [id number] CI [id number] Social History Type Description Quantity Date Captured Comments Sex Female Smoking Status No Information Chief Complaint And Reason For Visit No Information History Of Present Illness Encounter Date Complaint History Of Prese nt Illness No Information Instructions Date Instruction Additional Infor mation No Information Assessments Type Assessment Date No Information
--- OUTSIDE RECORDS SUMMARY | 2016-08-02 19:00 | XMS_ITS | Continuity of Care Document ---
Author Organization [facility] Address [address] [facility] [place] [address] Phone Care Team Providers Care Assistant Professor Of Life Sciences Name Role Phone Unavailable Unavailable Unavailable Advance Directives Directive Yes / No Effective Date File Name No Information Encounters Encounter Description Practice Location Reason(s) For Visit Diagnoses Date Provider Providers Copied on Encounter [facility], [address] [facility] [place], [place], [id number], tel:[phone] [facility] No Information 7 No Information Referring Provider: MAKSIM Salter, [address] [facility] [address], [place], [address]. tel:[phone] Family History Family Member Type Diagnosis Age At Onset No Information Payers Payer name Insurance type Covered alliance party ID Authoriza timolina(s) [facility] PPO [id number] CI [id number] Social History Type Description Quantity Date Captured Comments Sex Female Smoking Status No Information Chief Complaint And Reason For Visit No Information History Of Present Illness Encounter Date Complaint History Of Prese nt Illness No Information Instructions Date Instruction Additional Infor mation No Information Assessments Type Assessment Date No Information
--- OUTSIDE RECORDS SUMMARY | 2024-10-15 07:30 | XMS_ITS | Encounter Summary ---
Author Organization [facility] Address [address] [place] [address] Care Team Providers Care Junior Programmer Analyst Name Role Phone Unknown, Provider Primary Care [...] unspecified fetus (HCC) Procedures Biophysical Profile w T Sarita Davis MD [address] [place] [address] Phone: tel: fax: Referral ID Status Reason Start Date Expiration Date Visits Re quested Visits Authorized [id number] Open 10/07/2024 10/07/2025 7 7 Reason for Visit * Reason Comments Non-stress Test Ultrasound Maternal Medicine Diabetes * (Routine) - Open Specialty Diagnoses / [...] unspecified fetus (HCC) Procedures Biophysical Profile w T Sarita Davis MD [address] [place] [address] Phone: tel: fax: Referral ID Status Reason Start Date Expiration Date Visits Re quested Visits Authorized [id number] Open 10/07/2024 10/07/2025 7 7 Encounter Details Date Type Department Care Team (Latest Contact Info) Description 10/15/2024 7:30 AM CDT Hospital Encounter [facility] Maternal & Care [address] [place] [address] Farhad Casarez MD [address] [facility] [address] [place] [address] Discharge Disposition: Home or Self Care Social [...] money to get more. Never true 08/22/2024 Kenna Depression Scale Answer Date Recorded Kenna Depression Scale Total 4 08/22/2024 The thought of harming myself has occurred to me . 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 Gender Identity Not on file Sexual Orientation Not on file documented as of this encounter Medications at Time of Discharge Aspirin 81 MG CAPS DAILY 08/26/2024 Continuous Glucose Sensor (FreeStyle Samantha 2 Sensor Systm) [facility]OD [place] 4 TIMES A DAY 09/09/2024 Vit-Fe Fumarate-FA ( vitamin) 28-0.8 MG tablet Take 1 (one) tablet by mouth once daily sertraline (Zoloft) 50 MG tablet Take 1 (one) tablet by mouth once daily 05/27/2024 documented as of this encounter Plan of Treatment Upcoming Encounters Date Type Department Care Team (Late st Contact Info) Description 10/22/2024 9:00 AM CDT Hospital Encounter [facility] Maternal & Care [address] [place] [address] 10/29/2024 7:30 AM CDT Appointment [facility] Maternal & Care [address] [place] [address] 10/29/2024 8:15 AM CDT Appointment [facility] Maternal & Care [address] [place] [address] 10/29/2024 8:15 AM CDT Appointment [facility] Maternal & Care [address] [place] [address] 10/29/2024 8:15 AM CDT Appointment [facility] Maternal & Care [address] [place] [address] 11/05/2024 7:30 AM CDT Appointment [facility] Maternal & Care [address] [place] [address] 11/05/2024 8:15 AM CDT Appointment [facility] Maternal & Care [address] [place] [address] 11/05/2024 8:15 AM CDT Appointment [facility] Maternal & Care [address] [place] [address] 11/12/2024 7:30 AM CDT Appointment [facility] Maternal & Care [address] [place] [address] 11/12/2024 8:15 AM CDT Appointment [facility] Maternal & Care [address] [place] [address] 11/12/2024 9:00 AM CDT Appointment [facility] Maternal & Care [address] [place] [address] 11/12/2024 9:45 AM CDT Appointment [facility] Maternal & Care [address] [place] [address] documented as of this encounter Procedures Procedure Name Priority Date/Time Associated Diagnosis Comments BIOPHYSICAL PROFILE W NST Routine 10/15/2024 7:55 AM CDT 33 weeks gestation of (HCC) AMA (advanced maternal age) multigravida 35+, third trimester (HCC) with history of section, antepartum (HCC) History of gestational diabetes in prior , currently ([facility]) Gestational diabetes mellitus (GDM) in third trimester, gestational diabetes method of control unspecified ([facility]) abnormality affecting management of mother, single or unspecified fetus (HCC) documented in this encounter Results * Biophysical Profile w NST (10/15/2024 7:55 AM CDT) Linked Results Indication ======== Advanced maternal age (AMA), multigravida Gestational diabetes mellitus in , unspecified control Currently diet controlled Maternal obesity complicating , class 2 (BMI 35.0 - 39.9) abnormality, unspecified Anxiety on Zoloft , Prior C/S History ====== OB History 6. Para 2 [id number] 1. miscarriage 2014. Details: 1st trimester 2. [...] age [place] LMP 02/15/2024 34 w + 5 d 11/21/2024 Stated [place] 34 w + 5 d 11/21/2024 Previous U/S 04/11/2024 GA, GA 7 w + 4 d 34 w + 2 d 11/24/2024 Assigned dating based on the LMP, selected on 07/05/2024 34 w + 5 d 11/21/2024 General Evaluation Cardiac activity present. FHR 134 bpm. Presentation: cephalic Placenta: Placental site: anterior Amniotic Fluid Assessment ==== Amount of AF: normal MVP 6.2 cm. LASHANDA 16.6 cm. Q1 4.6 cm, Q2 5.0 cm, Q3 0.9 cm, Q4 6.2 cm Biophysical Profile 2: breathing movements 2: Gross body movements 2: tone 2: Amniotic fluid volume NST: reactive 11/29 Biophysical profile score Non Stress Test NST interpretation: reactive. Baseline FHR 135 bpm. Baseline variability: moderate. Accelerations: present. Decelerations: absent Growth Overview Exam date GA BPD (mm) [...] 3000 98% Anatomy The following structures appear normal: Abdomen Stomach. Kidneys. Bladder. sex: male. Impression ========= Single, live, intrauterine at 34w 5d The amniotic fluid volume is normal. The biophysical profile is 10/10. Comment ======== ultrasound alone cannot detect all structural, genetic, or functional , placental, or maternal abnormalities Follow-up ======== Continue weekly testing. Follow up growth assessment at 37 weeks. Coding ====== Procedures 43877: US Uterus Limited 31187: Biophysical Profile W NST [facility] [employer] PACS Anatomical Region Laterality Modality Other 10/15/2024 7:55 AM CDT us Sarita Davis MD [facility] ORDERABLES Edited Resu lt - Final documented in this encounter Visit Diagnoses Diagnosis 34 weeks gestation of (HCC)- Primary state, incidental AMA (advanced maternal age) multigravida 35+, third trimester (HCC) with history of section, antepartum (HCC) History of gestational diabetes in prior , currently (HCC) with other poor obstetric history Gestational diabetes mellitus (GDM) in third trimester, gestational diabetes method of control unspecified (HCC) abnormality affecting management of mother, single or unspecified fetus (HCC) Elevated blood pressure reading in office without diagnosis of hypertension 33 weeks gestation of (HCC) state, incidental 35 weeks gestation of (HCC)- Primary state, incidental AMA (advanced maternal age) multigravida 35+, third trimester (HCC) Gestational diabetes mellitus (GDM) in third trimester, gestational diabetes method of control unspecified (HCC) abnormality affecting management of mother, single or unspecified fetus (HCC) documented in this encounter Care Teams Junior Programmer Analyst Relationship Specialty Start Date End Date Unknown, Provider PCP - General 07/05/24 documented as of this encounter
--- OUTSIDE RECORDS SUMMARY | 2024-10-15 07:31 | XMS_ITS | Encounter Summary ---
Author Organization [facility] Address [address] [place] [address] Care Team Providers Care Switchboard Wirer Name Role Phone Unknown, Provider Primary Care Provider Unavaila ble Reason for Visit * Reason Comments Non-stress Test Ultrasound Maternal Medicine Diabetes Encounter Details Date Type Department Care Team (Latest Contact Info) Description 10/15/2024 7:31 AM CDT - 10/15/2024 11:59 PM CDT Hospital Encounter [facility] Maternal & Care [address] [place] [address] Farhad Casarez MD [address] [facility] [address] [place] [address] Discharge Disposition: Home or Self [...] money to get more. Never true 08/22/2024 [place] Depression Scale Answer Date Recorded [place] Depression Scale Total 4 08/22/2024 The thought of harming myself has occurred to me . 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 Gender Identity Not on file Sexual Orientation Not on file documented as of this encounter Last Filed Vital Signs Vital Sign Reading Time Taken Comments Blood Pressure 131/79 10/15/2024 8:00 AM CDT Pulse 103 10/15/2024 8:00 AM CDT Temperature - - Respiratory Rate - - Oxygen Saturation - - Inhaled Oxygen Concentration - - Weight - - Height - - Body Mass Index - - documented in this encounter Medications at Time of Discharge Aspirin 81 MG CAPS DAILY 08/26/2024 Continuous Glucose Sensor (FreeStyle Samantha 2 Sensor Systm) [facility] CHECK BLOOD SUGARS 4 TIMES A DAY 09/09/2024 Vit-Fe Fumarate-FA ( vitamin) 28-0.8 MG tablet Take 1 (one) tablet by mouth once daily sertraline (Zoloft) 50 MG tablet Take 1 (one) tablet by mouth once daily 05/27/2024 documented as of this encounter Progress Notes * Nicole Melgar, INSPECTOR BALL POINTS-RESIDENTIAL SUPPORT SPECIALIST - 10/15/2024 8:26 AM CDT Images from the original note were not included. [facility] follow up visit Zohreh Kevin is a 34 year old 34w5d. We are following her for AMA, GDM, history of GDM and preeclampsia. History of C/S and in subsequent . She has no complaints today. States she is wearing a samantha to monitor her blood sugar. States she went to the hospital on Monday and they had to stop her contractions. States she has had a few since discharge but not regular or consistent contractions. She reports good FM, no bleeding, no LOF, no DC, no regular contractions, no MCCURDY's, vision changes, RUQ pain. Genetic screening/testing: cf-DNA is low-risk Her is complicated by: Patient Active Problem List Diagnosis Date Noted AMA (advanced maternal age) multigravida 35+, third trimester (HCC) 10/15/2024 Priority: Not Prioritized Gestational diabetes mellitus (GDM) in third trimester (HCC) 10/15/2024 Priority: Not Prioritized History of gestational diabetes mellitus (GDM) 10/15/2024 Priority: Not Prioritized Depression screen 08/22/2024 Priority: Not Prioritized 08/22/2024 Zohreh Kevin was screened for depression using the [place] Depression Scale (EPDS) at her [facility] initial evaluation on 08/22/2024. Her initial scoreat baseline was 4. Based off of her score of 4, Zohreh does not warrant follow up. Patient will continue to be screened throughout , at intervals no closer than two weeks, for continued surveillance and early identification of depression until delivery. Patient reports mental health history. Diagnoses include anxiety. [facility]- abnormality in (HCC)- Pelvic Kidney 07/30/2024 Priority: Not Prioritized CARE HOME PATIENT--PLEASE CALL [phone] (ex 2) IF TRIAGED OR ADMITTED Care Provider: Dr. Davis; [facility] consultants involved: Marissa- Nurse Navigator; Dr. 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 Villa: -recommend renal ultrasound in first week of life; -follow up with pediatric nephrology at 1 month of life with repeat renal ultrasound; -call office with interval concerns. Binding Stitcher: Dr. Mckeon through [facility] [employer] Concerns: 08/22/2024-Patient with history of anxiety- does take medication Care plan based on evaluation and is subject to change based on assessment. See Images or Cardiac under Chart Review for US/ ECHO/ MRI reports. Exam: BP 131/79 Pulse 103 General: NAD Abdomen: soft, NT Extremities: equal in size and width bilaterally, NT, no sign of edema FHT: per US Urine dip: negative glucose, negative ketones, negative protein, negative blood Labs: CBC, CMP, pcr WNL on 10/10/24 (scanned into media) US: Please see report for details. Impressions/Recs 1. IUP (Intrauterine ) at 34w5d 2. AMA LR NIPT 3. GDM, history of GDM in G1 She presents with blood sugar logs for review via [employer]. Logs reveal good glycemic control. No changes indicated at this time. Recommneded to continue diabetic diet. After hours triage number provided S/p nutrition [...] 4. Hx of preeclampsia LDASA 162mg daily One mildly elevated BP in office on 10/10/24, [facility] labs WNL. Continue to monitor for preeclampsia. S&S reviewed again today. 5. 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 We reviewed kick counts (BID), as well as PTL and preeclampsia signs and symptoms. 7. 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 Keep all appointments with primary OB [...] me directly, or contact one of the [facility] physicians. HITESH Gallegos 10/15/2024 8:50 AM * Barbra Arzate RN - 10/15/2024 8:03 AM CDT Co-Manage with Dr. Davis Patient here at 34w5d for ultrasound, NST, DE, and follow up provider visit due to GDM. Denies contractions, leaking fluid or vaginal bleeding. Denies headache, visual changes, or RUQ pain. Reports feeling movement. Home medications reviewed; vital signs WNL. Patient states she was evaluated in L&D triage last week on Monday for ctx. Urine dip today = negative BPP 09/27, NST reactive; reviewed by Dr. Casarez. See note per Frederick Melgar NP for further plan of care. [facility] follow up: weekly, scheduled 10/22/24 BP 131/79 Pulse 103 Name: Zohreh Kevin Date of : 1990 Today's Date: 10/15/2024 34w5d NST RESULTS (GONCALVES) OBJECTIVE FINDINGS , Pulse: 103, , BP: 131/79 NST Indication(s): Gestational diabetes Uterine Irritability: Yes Contractions: Irregular Frequency: 60 Perceived Intensity: Mild OBJECTIVE FINDINGS Movement: Present Monitoring Mode: External Baseline: 140 BPM Variability: Moderate Decelerations: None Accelerations: Yes OTHER INFORMATION Barbra Arzate, RN documented in this encounter Plan of Treatment Upcoming Encounters Date Type Department Care Team (Late st Contact Info) Description 10/22/2024 9:00 AM CDT Hospital Encounter [facility] Maternal & Care [address] [place] [address] 10/29/2024 7:30 AM CDT Appointment [facility] Maternal & Care [address] [place] [address] 10/29/2024 8:15 AM CDT Appointment [facility] Maternal & Care [address] [place] [address] 10/29/2024 8:15 AM CDT Appointment [facility] Maternal & Care [address] [place] [address] 10/29/2024 8:15 AM CDT Appointment [facility] Maternal & Care [address] [place] [address] 11/05/2024 7:30 AM CDT Appointment [facility] Maternal & Care [address] [place] [address] 11/05/2024 8:15 AM CDT Appointment [facility] Maternal & Care [address] [place] [address] 11/05/2024 8:15 AM CDT Appointment [facility] Maternal & Care [address] [place] [address] 11/12/2024 7:30 AM CDT Appointment [facility] Maternal & Care [address] [place] [address] 11/12/2024 8:15 AM CDT Appointment [facility] Maternal & Care [address] [place] [address] 11/12/2024 9:00 AM CDT Appointment [facility] Maternal & Care [address] [place] [address] 11/12/2024 9:45 AM CDT Appointment [facility] Maternal & Care [address] [place] [address] documented as of this encounter Visit Diagnoses Diagnosis 34 weeks gestation of (HCC)- Primary state, incidental AMA (advanced maternal age) multigravida 35+, third trimester (HCC) Gestational diabetes mellitus (GDM) in third trimester, gestational diabetes method of control unspecified (HCC) abnormality affecting management of mother, single or unspecified fetus (HCC) History of gestational diabetes mellitus (GDM) 35 weeks gestation of (HCC)- Primary state, incidental AMA (advanced maternal age) multigravida 35+, third trimester (HCC) Gestational diabetes mellitus (GDM) in third trimester, gestational diabetes method of control unspecified (HCC) abnormality affecting management of mother, single or unspecified fetus (HCC) documented in this encounter Care Teams Switchboard Wirer Relationship Specialty Start Date End Date Unknown, Provider PCP - General 07/05/24 documented as of this encounter
--- OUTSIDE RECORDS SUMMARY | 2024-10-15 07:31 | XMS_ITS | Encounter Summary ---
Author Organization [facility] Address [address] [place] [address] Care Team Providers Care Psychology Professor Name Role Phone Unknown, Provider Primary Care Provider Unavaila ble Reason for Visit * Reason Comments Non-stress Test Ultrasound Maternal Medicine Diabetes Encounter Details Date Type Department Care Team (Latest Contact Info) Description 10/15/2024 7:31 AM CDT - 10/15/2024 11:59 PM CDT Hospital Encounter [facility] Maternal & Care [address] [place] [address] Farhad Casarez MD [address] [facility] [phone] Discharge Disposition: Home or Self Care [...] money to get more. Never true 08/22/2024 [place] Depression Scale Answer Date Recorded [place] Depression Scale Total 4 08/22/2024 The thought of harming myself has occurred to me . 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 Gender Identity Not on file Sexual Orientation Not on file documented as of this encounter Medications at Time of Discharge Aspirin 81 MG CAPS DAILY 08/26/2024 Continuous Glucose Sensor (FreeStyle Samantha 2 Sensor [facility]) [facility] CHECK BLOOD SUGARS 4 TIMES A DAY 09/09/2024 Vit-Fe Fumarate-FA ( vitamin) 28-0.8 MG tablet Take 1 (one) tablet by mouth once daily sertraline (Zoloft) 50 MG tablet Take 1 (one) tablet by mouth once daily 05/27/2024 documented as of this encounter Plan of Treatment Upcoming Encounters Date Type Department Care Team (Late st Contact Info) Description 10/22/2024 9:00 AM CDT Hospital Encounter [facility] Maternal & Care [address] [place] [address] 10/29/2024 7:30 AM CDT Appointment [facility] Maternal & Care [address] [place] [address] 10/29/2024 8:15 AM CDT Appointment [facility]aternal & Care [address] [place] [address] 10/29/2024 8:15 AM CDT Appointment [facility] & Care [address] [place] [address] 10/29/2024 8:15 AM CDT Appointment [facility] Maternal & Care [address] [place] [address] 11/05/2024 7:30 AM CDT Appointment [facility] Maternal & Care [address] [place] [address] 11/05/2024 8:15 AM CDT Appointment [facility] & Care [address] [place] [address] 11/05/2024 8:15 AM CDT Appointment [facility]aternal [facility] Care [address] [place] [address] 11/12/2024 7:30 AM CDT Appointment [facility] Maternal & Care [address] [place] [address] 11/12/2024 8:15 AM CDT Appointment [facility]aternal & Care [address] [place] [address] 11/12/2024 9:00 AM CDT Appointment [facility]aternal & Care [address] [place] [address] 11/12/2024 9:45 AM CDT Appointment [facility] Maternal & Care [address] [place] [address] documented as of this encounter Visit Diagnoses Diagnosis 34 weeks gestation of (HCC)- Primary state, incidental AMA (advanced maternal age) multigravida 35+, third trimester ([facility]) with history of section, antepartum ([facility]) History of gestational diabetes in prior , currently ([facility]) with other poor obstetric history Gestational diabetes mellitus (GDM) in third trimester, gestational diabetes method of control unspecified ([facility]) abnormality affecting management of mother, single or unspecified fetus (HCC) 35 weeks gestation of (HCC)- Primary state, incidental AMA (advanced maternal age) multigravida 35+, third trimester ([facility]) Gestational diabetes mellitus (GDM) in third trimester, gestational diabetes method of control unspecified ([facility]) abnormality affecting management of mother, single or unspecified fetus (HCC) documented in this encounter Care Teams Psychology Professor Relationship Specialty Start Date End Date Unknown, Provider PCP - General 07/05/24 documented as of this encounter
--- OUTSIDE RECORDS SUMMARY | 2024-10-15 07:31 | XMS_ITS | Encounter Summary ---
Author Organization [facility] Address [address] [place] [address] Care Team Providers Care Python Consultant Name Role Phone Unknown, Provider Primary Care Provider Unavaila ble Reason for Visit * Reason Comments Non-stress Test Ultrasound Maternal Medicine Diabetes Encounter Details Date Type Department Care Team (Latest Contact Info) Description 10/15/2024 7:31 AM CDT - 10/15/2024 11:59 PM CDT Hospital Encounter [facility] Maternal & Care [address] [place] [address] Farhad Casarez MD [address] [facility] [address] [place] [address] Discharge Disposition: Home or Self [...] money to get more. Never true 08/22/2024 [place] Depression Scale Answer Date Recorded [place] Depression Scale Total 4 08/22/2024 The thought of harming myself has occurred to me . 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 Gender Identity Not on file Sexual Orientation Not on file documented as of this encounter Medications at Time of Discharge Aspirin 81 MG CAPS DAILY 08/26/2024 Continuous Glucose Sensor (FreeStyle Samantha 2 Sensor [facility]) [facility] CHECK BLOOD SUGARS 4 TIMES A DAY 09/09/2024 Vit-Fe Fumarate-FA ( vitamin) 28-0.8 MG tablet Take 1 (one) tablet by mouth once daily sertraline (Zoloft) 50 MG tablet Take 1 (one) tablet by mouth once daily 05/27/2024 documented as of this encounter Plan of Treatment Upcoming Encounters Date Type Department Care Team (Late st Contact Info) Description 10/22/2024 9:00 AM CDT Hospital Encounter [facility] Maternal & Care [address] [place] [address] 10/29/2024 7:30 AM CDT Appointment [facility] Maternal & Care [address] [place] [address] 10/29/2024 8:15 AM CDT Appointment [facility] Maternal & Care [address] [place] [address] 10/29/2024 8:15 AM CDT Appointment [facility] Maternal & Care [address] [place] [address] 10/29/2024 8:15 AM CDT Appointment [facility] Maternal & Care [address] [place] [address] 11/05/2024 7:30 AM CDT Appointment [facility] Maternal & Care [address] [place] [address] 11/05/2024 8:15 AM CDT Appointment [facility] Maternal & Care [address] [place] [address] 11/05/2024 8:15 AM CDT Appointment [facility] Maternal & Care [address] [place] [address] 11/12/2024 7:30 AM CDT Appointment [facility] Maternal & Care [address] [place] [address] 11/12/2024 8:15 AM CDT Appointment [facility] Maternal & Care [address] [place] [address] 11/12/2024 9:00 AM CDT Appointment [facility] Maternal & Care [address] [place] [address] 11/12/2024 9:45 AM CDT Appointment [facility] Maternal & Care [address] [place] [address] documented as of this encounter Visit Diagnoses Diagnosis 34 weeks gestation of (HCC)- Primary state, incidental AMA (advanced maternal age) multigravida 35+, third trimester (HCC) with history of section, antepartum (HCC) Gestational diabetes mellitus (GDM) in third trimester, gestational diabetes method of control unspecified (HCC) abnormality affecting management of mother, single or unspecified fetus (HCC) Elevated blood pressure reading in office without diagnosis of hypertension 35 weeks gestation of (HCC)- Primary state, incidental AMA (advanced maternal age) multigravida 35+, third trimester (HCC) Gestational diabetes mellitus (GDM) in third trimester, gestational diabetes method of control unspecified (HCC) abnormality affecting management of mother, single or unspecified fetus (HCC) documented in this encounter Care Teams Python Consultant Relationship Specialty Start Date End Date Unknown, Provider PCP - General 07/05/24 documented as of this encounter
[2024-10-16] VITALS (12 sets, daily range): PULSE 87–99; O2SAT 99–100; BMI 41.3
--- NOTE | ~2024-10-16 | US_ITS ---
EXAMINATION: US OB limited w BPP DATE: 10/17/2024 6:29 CDT INDICATION: Biophysical profile. Evaluate cervical length and placenta. TECHNIQUE: Real-time transabdominal obstetric ultrasound. FINDINGS: No prior studies for comparison. There is a single living fetus in vertex presentation. The placenta is anterior without placenta previa. cardiac activity and movement is noted with a heart rate of 168 beats per minute. Biophysical profile: breathin of 2 movement: 2 of 2 tone: 2 of 2 Amniotic flud pocket: 2 of 2 Total score: 8 of 8 IMPRESSION: 1. Single living intrauterine in vertex presentation. 2: Total biophysical profile score of 8/8. Reviewed, dictated and finalized at location O.
--- NOTE | 2024-10-16 21:39 | PC.NURSE ---
Pt arrives to unit with spotting that started at 1900 and contractions every three to four minutes.
--- NOTE | 2024-10-16 22:36 | PC.NURSE ---
Dr. Jarrod Flood responded to page, update on pt, spotting, contractions every three minutes, tracing, and cervical exam. Orders received to administer LR bolus, up to three doses of terbutaline, and BPP with cervical length and placenta check.
--- OUTSIDE RECORDS SUMMARY | 2024-10-16 22:46 | XMS_ITS | Clinical Summary ---
Author Organization [facility] Address [facility] [place] [address] Care Team Providers Care Rn Mobile Name Role Phone None, Provider MD Primary [...] patient's age to complete this topic [place] [address] [place] [address] [facility] Care Teams Rn Mobile Relationship Specialty Start Date End Date None, Provider, MD PCP - General UNKNOWN PHYSICIAN SPECIALTY 10/01/22
--- OUTSIDE RECORDS SUMMARY | 2024-10-16 22:46 | XMS_ITS | Encounter Summary ---
Author Organization [facility] Address [address] [place] [address] Care Team Providers Care Crystalizer Tender Name Role Phone VenturaFarhad DO Primary Care Provider Encounter Details Date Type Department Care Team (Late st Contact Info) Description 10/30/2002 Outpatient Historical [facility] [address] [place] [address] [place] [address] [place] [address] Social History Tobacco Use Types Packs/Day Years Used Date Smoking Tobacco: Never Assessed Comments Unknown Sex and Gender Information Value Date Recorded Sex Assigned at Not on file Legal Sex Female 4:25 AM INSURANCE ADJUSTOR Gender Identity Not on file Sexual Orientation Not on file documented as of this encounter Plan of Treatment Not on file documented as of this encounter Visit Diagnoses Not on filedocumented in this encounter Additional Health Concerns Infection Onset Date Last Indicated Resolved Time R/O COVID-19 03/17/2021 03/18/2021 03/19/2021 1:53 AM INSURANCE ADJUSTOR documented as of this encounter Care Teams Crystalizer Tender Relationship Specialty [place] [address] [place] [address] PCP - General Internal Medicine 01/24/22 documented as of this encounter
--- OUTSIDE RECORDS SUMMARY | 2024-10-16 22:46 | XMS_ITS | Encounter Summary ---
Author Organization [facility] Address [address] [place] [address] Care Team Providers Care Hearing Specialist Name Role Phone VenturaFarhad DO Primary Care Provider Encounter Details Date Type Department Care Team (Late st Contact Info) Description 02/28/2003 Outpatient Historical [facility] [address] [place] [address] [place] [address] [place] [address] Social History Tobacco Use Types Packs/Day Years Used Date Smoking Tobacco: Never Assessed Comments Unknown Sex and Gender Information Value Date Recorded Sex Assigned at Not on file Legal Sex Female 4:25 AM TUB OPERATOR Gender Identity Not on file Sexual Orientation Not on file documented as of this encounter Plan of Treatment Not on file documented as of this encounter Visit Diagnoses Not on filedocumented in this encounter Additional Health Concerns Infection Onset Date Last Indicated Resolved Time R/O COVID-19 03/17/2021 03/18/2021 03/19/2021 1:53 AM TUB OPERATOR documented as of this encounter Care Teams Hearing Specialist Relationship Specialty Start [place] [address] [place] [address] PCP - General Internal Medicine 01/24/22 documented as of this encounter
--- OUTSIDE RECORDS SUMMARY | 2024-10-16 22:46 | XMS_ITS | Clinical Summary ---
Author Organization [facility] Address [address] [place] [address] Care Team Providers Care Utilization Review Rn Name Role Phone Unknown, Provider Primary Care Provider Unavaila ble Source Comments [facility],non-owned Affiliates and Associated Physician Practices is amultiple site organization consisting of ambulatory clinics and hospital sitesin [place], [place], [place] and [place]. This disclosure is being madepursuant to the Care Everywhere program and may not contain all information available regarding this patient. Last updated 17.[facility] qcue Allergies Active Allergy Reactions Criticality Noted Date [...] problem list. Problem Noted Date Diagnosed Date AMA (advanced maternal age) multigravida 35+, third trimester 10/15/2024 Gestational diabetes mellitus (GDM) in third tri mester 10/15/2024 History of gestational diabetes mellitus (GDM) 0 10/15/2024 Depression screen 08/22/2024 Overview (08/22/2024): 08/22/2024 Zohreh Kevin was screened for depression using the [place] Depression Scale (EPDS) at her [facility] initial evaluation on 08/22/2024. Her initial score at baseline was 4. Based off of her score of 4, Zohreh does not warrant follow up. Patient will continue to be screened throughout , at intervals no closer than two weeks, for continued surveillance and early identification of depression until delivery. Patient reports mental health history. Diagnoses include anxiety. HALFWAY- abnormality in (HCC)- Pelvic Kidney 07/30/2024 Overview (08/26/2024): Images from the original note were not included. HALFWAY PATIENT--PLEASE CALL [phone] (ex 2) IF TRIAGED OR ADMITTED Care Provider: Dr. Davis; [facility] consultants involved: Marissa- Nurse Navigator; Dr. 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 Villa: -recommend renal ultrasound in first week of life; -follow up with pediatric nephrology at 1 month of life with repeat renal ultrasound; -call office with interval concerns. Communications Representative: Dr. Mckeon through [facility] [employer] Concerns: 08/22/2024-Patient with history of anxiety- does take medication Care plan based on evaluation and is subject to change based on assessment. See Images or Cardiac under Chart Review for US/ ECHO/ MRI reports. Estimated Date of Delivery Comme nts Yes 11/21/2024 Based on last me nstrual period of 02/15/2024 Encounters Date Type Department Care Team Description 10/15/2024 7:31 AM CDT - 10/15/2024 11:59 PM CDT Hospital Encounter [facility] Maternal & Care [address] [facility] [place] [address] Farhad Casarez MD Discharge Disposition: Home or Self Care 10/15/2024 7:31 AM CDT - 10/15/2024 11:59 PM CDT Hospital Encounter [facility] Maternal & Care [address] [place] [place] [address] Farhad Casarez MD Discharge Disposition: Home or Self Care 10/15/2024 7:31 AM CDT - 10/15/2024 11:59 PM CDT Hospital Encounter [facility] Maternal & Care [address] [facility] [place] [address] Farhad Casarez MD Discharge Disposition: Home or Self Care 10/15/2024 7:30 AM CDT Hospital Encounter [facility] Maternal & Care [address] [place] [place] [address] Farhad Casarez MD Discharge Disposition: Home or Self Care 10/10/2024 8:55 AM CDT - 10/10/2024 11:59 PM CDT Hospital Encounter [facility] Maternal & Care [address] [facility] [place] [address] Toni Peguero DO Discharge Disposition: Home or Self Care 09/26/2024 Telephone [facility] Maternal & Care [address] [facility] [place] [address] Mine Elizabeth Appointment 09/17/2024 7:30 AM CDT - 09/17/2024 11:59 PM CDT Hospital Encounter [facility] Maternal & Care [address] [place] [place] [address] Blayne Mancera MD Discharge Disposition: Home or Self Care 08/22/2024 12:00 PM CDT - 08/22/2024 11:59 PM CDT Hospital Encounter [address] [address] Manny Miles MD GAS ENGINE OPERATOR COMPRESSORS Discharge Disposition: Home or Self Care 08/21/2024 Telephone [facility] [address] [address] Lorena Jarrett Reminder Call 08/01/2024 7:30 AM CDT - 08/01/2024 11:59 PM CDT Hospital Encounter [facility] Maternal & Care [address] [place] [address] Farhad Casarez MD Dildy, Gary A, MD Discharge Disposition: Home or Self Care 07/29/2024 Telephone [facility] [address] [address] Makeda Garcia, journeyman pressman 07/29/[address] [address] Makeda Garcia, journeyman pressman 07/26/2024 Telephone [facility] Care [address] [address] Makeda Garcia, journeyman pressman from Last 3 Months Social History Tobacco [...] money to get more. Never true 08/22/2024 [place] Depression Scale Answer Date Recorded [place] Depression Scale Total 4 08/22/2024 The thought of harming myself has occurred to me . Never 08/22/2024 Estimated Date of Delivery Comme nts Yes 11/21/2024 Based on last me nstrual period of 02/15/2024 Sex and Gender Information Value Date Recorded Sex Assigned at Not on file Legal Sex Female 6:23 AM BOILERMAKER FITTER Gender Identity Not on file Sexual Orientation [...] Description 10/22/2024 9:00 AM CDT Hospital Encounter [facility] Maternal & Care [address] [place] [address] 10/29/2024 7:30 AM CDT Appointment [facility] & Care [address] [place] [address] 10/29/2024 8:15 AM CDT Appointment [facility] [address] [place] [address] 10/29/2024 8:15 AM CDT Appointment [facility]aternal & Care [address] [place] [address] 10/29/2024 8:15 AM CDT Appointment [facility] [address] [place] [address] 11/05/2024 7:30 AM CDT Appointment [facility] [address] [place] [address] 11/05/2024 8:15 AM CDT Appointment [facility] [address] [place] [address] 11/05/2024 8:15 AM CDT Appointment [facility] [address] [place] [address] 11/12/2024 7:30 AM CDT Appointment [facility] Maternal & Care [address] [place] [address] 11/12/2024 8:15 AM CDT Appointment [facility] Maternal & Care [address] [place] [address] 11/12/2024 9:00 AM CDT Appointment [facility] Maternal & Care [address] [place] [address] 11/12/2024 9:45 AM CDT Appointment [facility] Maternal & Care [address] [place] [address] Health Maintenance Due Date Last Done Comments [...] trimester, gestational diabetes method of control unspecified ([facility]) abnormality affecting management of mother, single or unspecified fetus (HCC) BIOPHYSICAL PROFILE W NST Routine 10/10/2024 9:16 AM CDT 33 weeks gestation of (HCC) AMA (advanced maternal age) multigravida 35+, third trimester (HCC) with history of section, antepartum (HCC) History of gestational diabetes in prior , currently (HCC) Gestational diabetes mellitus (GDM) in third trimester, gestational diabetes method of control unspecified ([facility]) abnormality affecting management of mother, single or unspecified fetus (HCC) SONOGRAM - COMPLETE Routine 09/17/2024 7 :49 AM CDT 30 weeks gestation of (HCC) HALFWAY- abnormality in (HCC)- Pelvic Kidney Encounter for ultrasound to assess growth ([facility]) SONOGRAM - COMPLETE Routine 08/22/2024 1 2:38 PM CDT abnormality affecting management of mother, single or unspecified fetus ([facility]) SONOGRAM - COMPLETE Routine 08/01/2024 7 :33 AM CDT Sixth (HCC) History of History of delivery History of gestational diabetes mellitus (GDM) 23 weeks gestation of ([facility]) Encounter for ultrasound ([facility]) from Last 3 Months Results * Biophysical Profile w NST (10/15/2024 7:55 AM CDT) Only the most recent of2 resultswithin the time period is included. Linked Results Indication ======== Advanced maternal age (AMA), multigravida Gestational diabetes mellitus in , unspecified control Currently diet controlled Maternal obesity complicating , class 2 (BMI 35.0 - 39.9) abnormality, unspecified Anxiety on Zoloft , Prior C/S History ====== OB History 6. Para 2 [id number] 1. miscarriage 2014. Details: 1st trimester 2. [...] tone 2: Amniotic fluid volume NST: reactive 10 Biophysical profile score Non Stress Test NST [...] assessment at 37 weeks. Coding ====== Procedures 38940: [place] Uterus Limited 93719: Biophysical Profile W NST [facility] PACS Anatomical Region Laterality Modality Other 10/15/2024 7:55 AM CDT us Sarita Davis MD [facility] ORDERABLES Edited Resu lt - Final * Sonogram - Complete (09/17/2024 7:49 AM CDT) Only the most recent of3 resultswithin the time period is included. Linked Results Indication ======== Advanced maternal age (AMA), multigravida Maternal obesity complicating , class 2 (BMI 35.0 - 39.9) abnormality, unspecified pelvic kidney Anxiety on Zoloft , Prior C/S History ====== OB History 6. Para 2 [id number] 1. miscarriage 2014. Details: 1st trimester 2. [...] 4 lb 15 oz EFW by Hadlock ([id number]) LGA Growth Overview Exam date [place] BPD [...] at 36 weeks gestation Coding ====== Procedures [id number]: US [facility]reg [facility] Anatomical Region Laterality Modality Other 09/17/2024 7:49 AM CDT Sarita Davis MD [facility] ORDERABLES Edited Resu lt - Final from Last 3 Months Insurance [employer] [facility] Address: [address] [address] [place] [address] Care Teams Utilization Review Rn Relationship Specialty Start Date End Date Unknown, Provider PCP - General 07/05/24
--- OUTSIDE RECORDS SUMMARY | 2024-10-16 22:46 | XMS_ITS | Encounter Summary ---
Author Organization [facility] Address [address] [place] [address] Care Team Providers Care Analytical Scientist Name Role Phone VenturaFarhad DO Primary Care Provider Encounter Details Date Type Department Care Team (Late st Contact Info) Description 07/02/2002 Outpatient Historical [facility] [address] [place] [address] [place] [address] [place] [address] Social History Tobacco Use Types Packs/Day Years Used Date Smoking Tobacco: Never Assessed Comments Unknown Sex and Gender Information Value Date Recorded Sex Assigned at Not on file Legal Sex Female 4:25 AM LIBRARY SPECIALIST Gender Identity Not on file Sexual Orientation Not on file documented as of this encounter Plan of Treatment Not on file documented as of this encounter Visit Diagnoses Not on filedocumented in this encounter Additional Health Concerns Infection Onset Date Last Indicated Resolved Time R/O COVID-19 03/17/2021 03/18/2021 03/19/2021 1:53 AM LIBRARY SPECIALIST documented as of this encounter Care Teams Analytical Scientist Relationship Specialty [place] [address] [place] [address] PCP - General Internal Medicine 01/24/22 documented as of this encounter
--- OUTSIDE RECORDS SUMMARY | 2024-10-16 22:46 | XMS_ITS | Encounter Summary ---
Author Organization [facility] Address [address] [place] [address] Care Team Providers Care Exercise Manager Name Role Phone Farhad Whitehead DO Primary Care Provider Encounter Details Date Type Department Care Team (Late st Contact Info) Description 01/03/2002 Outpatient Historical [facility] [address] [place] [address] Natalee Julien MD [address] [address] Social History Tobacco Use Types Packs/Day Years Used Date Smoking Tobacco: Never Assessed Comments Unknown Sex and Gender Information Value Date Recorded Sex Assigned at Not on file Legal Sex Female 4:25 AM CHEMICAL PROCESS EQUIPMENT OPERATOR Gender Identity Not on file Sexual Orientation Not on file documented as of this encounter Plan of Treatment Not on file documented as of this encounter Visit Diagnoses Not on filedocumented in this encounter Additional Health Concerns Infection Onset Date Last Indicated Resolved Time R/O COVID-19 03/17/2021 03/18/2021 03/19/2021 1:5 3 AM CHEMICAL PROCESS EQUIPMENT OPERATOR documented as of this encounter Care Teams Exercise Manager Relationship Specialty Start Date End Date VenturaFarhad Garcia, [address] [place] [address] PCP - General Internal Medicine 01/24/22 documented as of this encounter
--- OUTSIDE RECORDS SUMMARY | 2024-10-16 22:46 | XMS_ITS | Encounter Summary ---
Author Organization [employer] Address [address] [place] [address] Care Team Providers Care In Flight Crew Member Name Role Phone VenturaFarhad DO Primary Care Provider Encounter Details Date Type Department Care Team (Late st Contact Info) Description 05/03/2002 Outpatient Historical [facility] [address] [place] [address] [place] [address] [place] [address] Social History Tobacco Use Types Packs/Day Years Used Date Smoking Tobacco: Never Assessed Comments Unknown Sex and Gender Information Value Date Recorded Sex Assigned at Not on file Legal Sex Female 4:25 AM PLUG SORTER Gender Identity Not on file Sexual Orientation Not on file documented as of this encounter Plan of Treatment Not on file documented as of this encounter Visit Diagnoses Not on filedocumented in this encounter Additional Health Concerns Infection Onset Date Last Indicated Resolved Time R/O COVID-19 03/17/2021 03/18/2021 03/19/2021 1:53 AM PLUG SORTER documented as of this encounter Care Teams In Flight Crew Member Relationship Specialty [place] [address] [place] [address] PCP - General Internal Medicine 01/24/22 documented as of this encounter
--- OUTSIDE RECORDS SUMMARY | 2024-10-16 22:46 | XMS_ITS | Encounter Summary ---
Author Organization [facility] Address [address] [place] [address] Care Team Providers Care Metal Tile Setter Name Role Phone VenturaFarhad DO Primary Care Provider Encounter Details Date Type Department Care Team (Late st Contact Info) Description 05/22/2000 Outpatient Historical [facility] [address] [place] [address] [place] [address] [place] [address] Social History Tobacco Use Types Packs/Day Years Used Date Smoking Tobacco: Never Assessed Comments Unknown Sex and Gender Information Value Date Recorded Sex Assigned at Not on file Legal Sex Female 4:25 AM SURGERY ASSISTANT Gender Identity Not on file Sexual Orientation Not on file documented as of this encounter Plan of Treatment Not on file documented as of this encounter Visit Diagnoses Not on filedocumented in this encounter Additional Health Concerns Infection Onset Date Last Indicated Resolved Time R/O COVID-19 03/17/2021 03/18/2021 03/19/2021 1:53 AM SURGERY ASSISTANT documented as of this encounter Care Teams Metal Tile Setter Relationship Specialty [place] [address] [place] [address] PCP - General Internal Medicine 01/24/22 documented as of this encounter
--- OUTSIDE RECORDS SUMMARY | 2024-10-16 22:46 | XMS_ITS | Encounter Summary ---
Author Organization [facility] Address [address] [place] [address] Care Team Providers Care Oxygraph Operator Name Role Phone VenturaFarhad DO Primary Care Provider Encounter Details Date Type Department Care Team (Late st Contact Info) Description 10/19/2001 Outpatient Historical [facility] [address] [place] [address] [place] [address] [place] [address] Social History Tobacco Use Types Packs/Day Years Used Date Smoking Tobacco: Never Assessed Comments Unknown Sex and Gender Information Value Date Recorded Sex Assigned at Not on file Legal Sex Female 4:25 AM SENIOR QC TECHNICIAN Gender Identity Not on file Sexual Orientation Not on file documented as of this encounter Plan of Treatment Not on file documented as of this encounter Visit Diagnoses Not on filedocumented in this encounter Additional Health Concerns Infection Onset Date Last Indicated Resolved Time R/O COVID-19 03/17/2021 03/18/2021 03/19/2021 1:53 AM SENIOR QC TECHNICIAN documented as of this encounter Care Teams Oxygraph Operator Relationship Specialty [place] [address] [place] [address] PCP - General Internal Medicine 01/24/22 documented as of this encounter
--- OUTSIDE RECORDS SUMMARY | 2024-10-16 22:47 | XMS_ITS | Encounter Summary ---
Author Organization [facility] Address [address] [place] [address] Care Team Providers Care Claims Service Representative Name Role Phone VenturaFarhad DO Primary Care Provider Encounter Details Date Type Department Care Team (Late st Contact Info) Description 12/17/1999 Outpatient Historical [facility] [address] [place] [address] [place] [address] [place] [address] Social History Tobacco Use Types Packs/Day Years Used Date Smoking Tobacco: Never Assessed Comments Unknown Sex and Gender Information Value Date Recorded Sex Assigned at Not on file Legal Sex Female 4:25 AM COMPUTER SYSTEM VALIDATION SPECIALIST Gender Identity Not on file Sexual Orientation Not on file documented as of this encounter Plan of Treatment Not on file documented as of this encounter Visit Diagnoses Not on filedocumented in this encounter Additional Health Concerns Infection Onset Date Last Indicated Resolved Time R/O COVID-19 03/17/2021 03/18/2021 03/19/2021 1:53 AM COMPUTER SYSTEM VALIDATION SPECIALIST documented as of this encounter Care Teams Claims Service Representative Relationship Specialty Start [place] [address] [place] [address] PCP - General Internal Medicine 01/24/22 documented as of this encounter
--- OUTSIDE RECORDS SUMMARY | 2024-10-16 22:47 | XMS_ITS | Encounter Summary ---
Author Organization [facility] Address [address] [place] [address] Care Team Providers Care Housekeeping Aid Name Role Phone VenturaFarhadda DO Primary Care Provider Encounter Details Date Type Department Care Team (Late st Contact Info) Description 11/08/2005 Outpatient Historical [facility] [address] [place] [address] [place] [address] [place] [address] Social History Tobacco Use Types Packs/Day Years Used Date Smoking Tobacco: Never Assessed Comments Unknown Sex and Gender Information Value Date Recorded Sex Assigned at Not on file Legal Sex Female 4:25 AM WEB PRESS JOGGER Gender Identity Not on file Sexual Orientation Not on file documented as of this encounter Plan of Treatment Not on file documented as of this encounter Visit Diagnoses Not on filedocumented in this encounter Additional Health Concerns Infection Onset Date Last Indicated Resolved Time R/O COVID-19 03/17/2021 03/18/2021 03/19/2021 1:53 AM WEB PRESS JOGGER documented as of this encounter Care Teams Housekeeping Aid Relationship Specialty [place] [address] [place] [address] PCP - General Internal Medicine 01/24/22 documented as of this encounter
--- OUTSIDE RECORDS SUMMARY | 2024-10-16 22:47 | XMS_ITS | Encounter Summary ---
Author Organization [facility] Address [address] [place] [address] Care Team Providers Care Director Corporate Name Role Phone VenturaFarhad boone DO Primary Care Provider Encounter Details Date Type Department Care Team (Late st Contact Info) Description 05/17/2001 Outpatient Historical [facility] [address] [place] [address] Zay Chilel MD [address] [place] [address] Social History Tobacco Use Types Packs/Day Years Used Date Smoking Tobacco: Never Assessed Comments Unknown Sex and Gender Information Value Date Recorded Sex Assigned at Not on file Legal Sex Female 4:25 AM PROPELLANT ASSEMBLER Gender Identity Not on file Sexual Orientation Not on file documented as of this encounter Plan of Treatment Not on file documented as of this encounter Visit Diagnoses Not on filedocumented in this encounter Additional Health Concerns Infection Onset Date Last Indicated Resolved Time R/O COVID-19 03/17/2021 03/18/2021 03/19/2021 1:53 AM PROPELLANT ASSEMBLER documented as of this encounter Care Teams Director Corporate Relationship Specialty Start [place] [address] [place] [address] PCP - General Internal Medicine 01/24/22 documented as of this encounter
--- OUTSIDE RECORDS SUMMARY | 2024-10-16 22:47 | XMS_ITS | Encounter Summary ---
Author Organization [facility] Address [address] [place] [address] Care Team Providers Care Wharf Worker Name Role Phone VenturaFarhad DO Primary Care Provider Encounter Details Date Type Department Care Team (Late st Contact Info) Description 04/09/2001 Outpatient Historical [facility] [address] [place] [address] [place] [address] [place] [address] Social History Tobacco Use Types Packs/Day Years Used Date Smoking Tobacco: Never Assessed Comments Unknown Sex and Gender Information Value Date Recorded Sex Assigned at Not on file Legal Sex Female 4:25 AM SURGICAL RN Gender Identity Not on file Sexual Orientation Not on file documented as of this encounter Plan of Treatment Not on file documented as of this encounter Visit Diagnoses Not on filedocumented in this encounter Additional Health Concerns Infection Onset Date Last Indicated Resolved Time R/O COVID-19 03/17/2021 03/18/2021 03/19/2021 1:53 AM SURGICAL RN documented as of this encounter Care Teams Wharf Worker Relationship Specialty Start [place] [address] [place] [address] PCP - General Internal Medicine 01/24/22 documented as of this encounter
--- OUTSIDE RECORDS SUMMARY | 2024-10-16 22:47 | XMS_ITS | Encounter Summary ---
Author Organization [facility] Address [address] [place] [address] Care Team Providers Care Communications Equipment Operator Name Role Phone VenturaFarhad DO Primary Care Provider Encounter Details Date Type Department Care Team (Late st Contact Info) Description 07/20/2001 Outpatient Historical [facility] [address] [place] [address] [place] [address] [place] [address] Social History Tobacco Use Types Packs/Day Years Used Date Smoking Tobacco: Never Assessed Comments Unknown Sex and Gender Information Value Date Recorded Sex Assigned at Not on file Legal Sex Female 4:25 AM SIGNAL MAINTENANCE TECHNICIAN Gender Identity Not on file Sexual Orientation Not on file documented as of this encounter Plan of Treatment Not on file documented as of this encounter Visit Diagnoses Not on filedocumented in this encounter Additional Health Concerns Infection Onset Date Last Indicated Resolved Time R/O COVID-19 03/17/2021 03/18/2021 03/19/2021 1:53 AM SIGNAL MAINTENANCE TECHNICIAN documented as of this encounter Care Teams Communications Equipment Operator Relationship Specialty [place] [address] [place] [address] PCP - General Internal Medicine 01/24/22 documented as of this encounter
--- OUTSIDE RECORDS SUMMARY | 2024-10-16 22:47 | XMS_ITS | Encounter Summary ---
Author Organization [facility] Address [address] [place] [address] Care Team Providers Care Building Mechanic Name Role Phone Unavailable Primary Care Provider Unavailabl e Prior Encounters Date Type Department Care Team Description 03/11/2019 Converted CPS Chart Documents [facility] [address] [place] [address] <No scans attached> 03/11/2019 Converted 13x Documents [place] [address] [place] [address] <No scans attached> Plan of [...]
--- OUTSIDE RECORDS SUMMARY | 2024-10-16 22:47 | XMS_ITS | Encounter Summary ---
Author Organization [facility] Address [address] [place] [address] Care Team Providers Care Forging Machine Hand Name Role Phone VenturaFarhad DO Primary Care Provider Encounter Details Date Type Department Care Team (Late st Contact Info) Description 03/09/2004 Outpatient Historical [facility] [address] [place] [address] [place] [address] [place] [address] Social History Tobacco Use Types Packs/Day Years Used Date Smoking Tobacco: Never Assessed Comments Unknown Sex and Gender Information Value Date Recorded Sex Assigned at Not on file Legal Sex Female 4:25 AM FRENCH PASTRY COOK Gender Identity Not on file Sexual Orientation Not on file documented as of this encounter Plan of Treatment Not on file documented as of this encounter Visit Diagnoses Not on filedocumented in this encounter Additional Health Concerns Infection Onset Date Last Indicated Resolved Time R/O COVID-19 03/17/2021 03/18/2021 03/19/2021 1:53 AM FRENCH PASTRY COOK documented as of this encounter Care Teams Forging Machine Hand Relationship Specialty Start [place] [address] [place] [address] PCP - General Internal Medicine 01/24/22 documented as of this encounter
--- OUTSIDE RECORDS SUMMARY | 2024-10-16 22:47 | XMS_ITS | Encounter Summary ---
Author Organization [facility] Address [address] [place] [address] Care Team Providers Care Car Sales Associate Name Role Phone VenturaFarhad DO Primary Care Provider Encounter Details Date Type Department Care Team (Late st Contact Info) Description 11/02/2004 Outpatient Historical [facility] [address] [place] [address] [place] [address] [place] [address] Social History Tobacco Use Types Packs/Day Years Used Date Smoking Tobacco: Never Assessed Comments Unknown Sex and Gender Information Value Date Recorded Sex Assigned at Not on file Legal Sex Female 4:25 AM BILINGUAL PATIENT SUPPORT CASEWORKER Gender Identity Not on file Sexual Orientation Not on file documented as of this encounter Plan of Treatment Not on file documented as of this encounter Visit Diagnoses Not on filedocumented in this encounter Additional Health Concerns Infection Onset Date Last Indicated Resolved Time R/O COVID-19 03/17/2021 03/18/2021 03/19/2021 1:53 AM BILINGUAL PATIENT SUPPORT CASEWORKER documented as of this encounter Care Teams Car Sales Associate Relationship Specialty Start [place] [address] [place] [address] PCP - General Internal Medicine 01/24/22 documented as of this encounter
--- OUTSIDE RECORDS SUMMARY | 2024-10-16 22:47 | XMS_ITS | Encounter Summary ---
Author Organization [facility] Address [address] [place] [address] Care Team Providers Care Mechanical Test Engineer Name Role Phone VenturaFarhadda DO Primary Care Provider Encounter Details Date Type Department Care Team (Late st Contact Info) Description 09/28/2006 Outpatient Historical [facility] [address] [place] [address] [place] [address] [place] [address] Social History Tobacco Use Types Packs/Day Years Used Date Smoking Tobacco: Never Assessed Comments Unknown Sex and Gender Information Value Date Recorded Sex Assigned at Not on file Legal Sex Female 4:25 AM AERONAUTICAL PROJECT ENGINEER Gender Identity Not on file Sexual Orientation Not on file documented as of this encounter Plan of Treatment Not on file documented as of this encounter Visit Diagnoses Not on filedocumented in this encounter Additional Health Concerns Infection Onset Date Last Indicated Resolved Time R/O COVID-19 03/17/2021 03/18/2021 03/19/2021 1:53 AM AERONAUTICAL PROJECT ENGINEER documented as of this encounter Care Teams Mechanical Test Engineer Relationship Specialty Start [place] [address] [place] [address] PCP - General Internal Medicine 01/24/22 documented as of this encounter
--- OUTSIDE RECORDS SUMMARY | 2024-10-16 22:47 | XMS_ITS | Encounter Summary ---
Author Organization [facility] Address [address] [place] [address] Care Team Providers Care Trapeze Artist Name Role Phone Farhad Whitehead DO Primary Care Provider Encounter Details Date Type Department Care Team (Late st Contact Info) Description 02/22/2005 Outpatient Historical [facility] [address] [place] [address] [place] [address] [place] [address] Social History Tobacco Use Types Packs/Day Years Used Date Smoking Tobacco: Never Assessed Comments Unknown Sex and Gender Information Value Date Recorded Sex Assigned at Not on file Legal Sex Female 4:25 AM SEWER CLEANER Gender Identity Not on file Sexual Orientation Not on file documented as of this encounter Plan of Treatment Not on file documented as of this encounter Visit Diagnoses Not on filedocumented in this encounter Additional Health Concerns Infection Onset Date Last Indicated Resolved Time R/O COVID-19 03/17/2021 03/18/2021 03/19/2021 1:53 AM SEWER CLEANER documented as of this encounter Care Teams Trapeze Artist Relationship Specialty Start Date End Date VenturaFarhad GarciaDO [address] [place] [address] PCP - General Internal Medicine 01/24/22 documented as of this encounter
--- OUTSIDE RECORDS SUMMARY | 2024-10-16 22:47 | XMS_ITS | Clinical Summary ---
Author Organization [facility] Address [address] [place] [address] Care Team Providers Care Mold Builder Name Role Phone Unavailable Primary Care Provider [...]
--- OUTSIDE RECORDS SUMMARY | 2024-10-16 22:47 | XMS_ITS | Encounter Summary ---
Author Organization [facility] Address [address] [place] [address] Care Team Providers Care Drywall Hanger Framer Name Role Phone VenturaFarhadda DO Primary Care Provider Encounter Details Date Type Department Care Team (Late st Contact Info) Description 2005 Outpatient Historical [facility] [address] [place] [address] [place] [address] [place] [address] Social History Tobacco Use Types Packs/Day Years Used Date Smoking Tobacco: Never Assessed Comments Unknown Sex and Gender Information Value Date Recorded Sex Assigned at Not on file Legal Sex Female 4:25 AM CYANIDE POT TENDER Gender Identity Not on file Sexual Orientation Not on file documented as of this encounter Plan of Treatment Not on file documented as of this encounter Visit Diagnoses Not on filedocumented in this encounter Additional Health Concerns Infection Onset Date Last Indicated Resolved Time R/O COVID-19 03/17/2021 03/18/2021 03/19/2021 1:53 AM CYANIDE POT TENDER documented as of this encounter Care Teams Drywall Hanger Framer Relationship Specialty Start [place] [address] [place] [address] PCP - General Internal Medicine 01/24/22 documented as of this encounter
--- OUTSIDE RECORDS SUMMARY | 2024-10-16 22:47 | XMS_ITS | Encounter Summary ---
Author Organization [facility] Address [address] [place] [address] Care Team Providers Care Optical Instrument Assembler Name Role Phone VenturaFarhadda DO Primary Care Provider Encounter Details Date Type Department Care Team (Late st Contact Info) Description 12/08/2006 Outpatient Historical [facility] [address] [place] [address] [place] [address] [place] [address] Social History Tobacco Use Types Packs/Day Years Used Date Smoking Tobacco: Never Assessed Comments Unknown Sex and Gender Information Value Date Recorded Sex Assigned at Not on file Legal Sex Female 4:25 AM ELECTRICAL PANEL BUILDER Gender Identity Not on file Sexual Orientation Not on file documented as of this encounter Plan of Treatment Not on file documented as of this encounter Visit Diagnoses Not on filedocumented in this encounter Additional Health Concerns Infection Onset Date Last Indicated Resolved Time R/O COVID-19 03/17/2021 03/18/2021 03/19/2021 1:53 AM ELECTRICAL PANEL BUILDER documented as of this encounter Care Teams Optical Instrument Assembler Relationship Specialty Start [place] [address] [place] [address] PCP - General Internal Medicine 01/24/22 documented as of this encounter
--- OUTSIDE RECORDS SUMMARY | 2024-10-16 22:47 | XMS_ITS | Encounter Summary ---
Author Organization [facility] Address [address] [place] [address] Care Team Providers Care Fish Frog Or Oyster Farmer Name Role Phone VenturaFarhad DO Primary Care Provider Encounter Details Date Type Department Care Team (Late st Contact Info) Description 09/02/2004 Outpatient Historical [facility] [address] [place] [address] [place] [address] [place] [address] Social History Tobacco Use Types Packs/Day Years Used Date Smoking Tobacco: Never Assessed Comments Unknown Sex and Gender Information Value Date Recorded Sex Assigned at Not on file Legal Sex Female 4:25 AM CASEWORKER Gender Identity Not on file Sexual Orientation Not on file documented as of this encounter Plan of Treatment Not on file documented as of this encounter Visit Diagnoses Not on filedocumented in this encounter Additional Health Concerns Infection Onset Date Last Indicated Resolved Time R/O COVID-19 03/17/2021 03/18/2021 03/19/2021 1:53 AM CASEWORKER documented as of this encounter Care Teams Fish Frog Or Oyster Farmer Relationship Specialty [place] [address] [place] [address] PCP - General Internal Medicine 01/24/22 documented as of this encounter
--- OUTSIDE RECORDS SUMMARY | 2024-10-16 22:47 | XMS_ITS | Encounter Summary ---
Author Organization [facility] Address [address] [place] [address] Care Team Providers Care Numerical Control Programmer Name Role Phone VenturaFarhad DO Primary Care Provider Encounter Details Date Type Department Care Team (Late st Contact Info) Description 08/04/2000 Outpatient Historical [facility] [address] [place] [address] [place] [address] [place] [address] Social History Tobacco Use Types Packs/Day Years Used Date Smoking Tobacco: Never Assessed Comments Unknown Sex and Gender Information Value Date Recorded Sex Assigned at Not on file Legal Sex Female 4:25 AM IMMIGRATION SPECIALIST Gender Identity Not on file Sexual Orientation Not on file documented as of this encounter Plan of Treatment Not on file documented as of this encounter Visit Diagnoses Not on filedocumented in this encounter Additional Health Concerns Infection Onset Date Last Indicated Resolved Time R/O COVID-19 03/17/2021 03/18/2021 03/19/2021 1:53 AM IMMIGRATION SPECIALIST documented as of this encounter Care Teams Numerical Control Programmer Relationship Specialty Start [place] [address] [place] [address] PCP - General Internal Medicine 01/24/22 documented as of this encounter
--- OUTSIDE RECORDS SUMMARY | 2024-10-16 22:47 | XMS_ITS | Encounter Summary ---
Author Organization [facility] Address [address] [place] [address] Care Team Providers Care Cone Runner Name Role Phone Farhad Whitehead DO Primary Care Provider Encounter Details Date Type Department Care Team (Late st Contact Info) Description 01/18/2007 Outpatient Historical [facility] [address] [place] [address] [place] [address] [place] [address] Social History Tobacco Use Types Packs/Day Years Used Date Smoking Tobacco: Never Assessed Comments Unknown Sex and Gender Information Value Date Recorded Sex Assigned at Not on file Legal Sex Female 4:25 AM SEARCH ENGINE OPTIMIZATION ANALYST Gender Identity Not on file Sexual Orientation Not on file documented as of this encounter Plan of Treatment Not on file documented as of this encounter Visit Diagnoses Not on filedocumented in this encounter Additional Health Concerns Infection Onset Date Last Indicated Resolved Time R/O COVID-19 03/17/2021 03/18/2021 03/19/2021 1:53 AM SEARCH ENGINE OPTIMIZATION ANALYST documented as of this encounter Care Teams Cone Runner Relationship Specialty Start Date End Date [place]had GarciaDO [address] [place] [address] PCP - General Internal Medicine 01/24/22 documented as of this encounter
--- OUTSIDE RECORDS SUMMARY | 2024-10-16 22:47 | XMS_ITS | Encounter Summary ---
Author Organization [facility] Address [address] [place] [address] Care Team Providers Care Business Support Associate Name Role Phone VenturaFarhadda DO Primary Care Provider Encounter Details Date Type Department Care Team (Late st Contact Info) Description 01/17/2000 Outpatient Historical [facility] [address] [place] [address] [place] [address] [place] [address] Social History Tobacco Use Types Packs/Day Years Used Date Smoking Tobacco: Never Assessed Comments Unknown Sex and Gender Information Value Date Recorded Sex Assigned at Not on file Legal Sex Female 4:25 AM TOUR GUIDE Gender Identity Not on file Sexual Orientation Not on file documented as of this encounter Plan of Treatment Not on file documented as of this encounter Visit Diagnoses Not on filedocumented in this encounter Additional Health Concerns Infection Onset Date Last Indicated Resolved Time R/O COVID-19 03/17/2021 03/18/2021 03/19/2021 1:53 AM TOUR GUIDE documented as of this encounter Care Teams Business Support Associate Relationship Specialty [place] [address] [place] [address] PCP - General Internal Medicine 01/24/22 documented as of this encounter
--- OUTSIDE RECORDS SUMMARY | 2024-10-16 22:47 | XMS_ITS | Encounter Summary ---
Author Organization [facility] Address [address] [place] [address] Care Team Providers Care Computer Forensics Technician Name Role Phone VenturaFarhad DO Primary Care Provider Encounter Details Date Type Department Care Team (Late st Contact Info) Description 07/11/2003 Outpatient Historical [facility] [address] [place] [address] [place] [address] [place] [address] Social History Tobacco Use Types Packs/Day Years Used Date Smoking Tobacco: Never Assessed Comments Unknown Sex and Gender Information Value Date Recorded Sex Assigned at Not on file Legal Sex Female 4:25 AM CRM COORDINATOR Gender Identity Not on file Sexual Orientation Not on file documented as of this encounter Plan of Treatment Not on file documented as of this encounter Visit Diagnoses Not on filedocumented in this encounter Additional Health Concerns Infection Onset Date Last Indicated Resolved Time R/O COVID-19 03/17/2021 03/18/2021 03/19/2021 1:53 AM CRM COORDINATOR documented as of this encounter Care Teams Computer Forensics Technician Relationship Specialty Start [place] [address] [place] [address] PCP - General Internal Medicine 01/24/22 documented as of this encounter
--- NOTE | 2024-10-16 22:53 | OBADM ---
This patient, Zohreh Kevin, admitted to the OB room Labor/Delivery/Recovery 102 for observation. Patient/family oriented to hospital policies and general routines including ID bracelet, bed and alarms, visiting hours, pain management, procedures, bathroom and other care routines, personal items, smoking policy, room service/diet, and visiting hours. Patient/Family are encouraged to report perceived risks to care and to ask questions if they do not understand what they are told or what they should do.
[2024-10-16] MEDS: LACTATED RINGERS 1,000 ML 999 ML IV CONT (22:59)
[2024-10-16] MEDS: TERBUTALINE SULFATE 1 MG/ML VIAL 0.25 MG SUB-Q ×2 (23:02→23:50)
--- NOTE | 2024-10-16 23:07 | PC.NURSE ---
Ultrasound at bedside for BPP with cervical length and placenta check.
[2024-10-17] VITALS (20 sets, daily range): PULSE 97–122; O2SAT 98–100
--- NOTE | 2024-10-17 00:20 | PC.NURSE ---
Dr. Jarrod Flood responded to page, update on contractions, orders received to administer third dose of terbutaline and if contractions do not subside then initiate magnesium 4 g bolus and 2 g maintenance dose.
[2024-10-17] MEDS: TERBUTALINE SULFATE 1 MG/ML VIAL 0.25 MG SUB-Q (00:28)
--- NOTE | 2024-10-17 01:00 | PC.NURSE ---
Pt denies feeling contractions and has no pain at this time.
--- NOTE | 2024-10-17 01:36 | PC.NURSE ---
RN at bedside, discuss plan of care for magnesium treatment, pt denies magnesium at this time, requests to discharge home.
--- NOTE | 2024-10-17 01:42 | PC.NURSE ---
Dr. Jarrod Flood responded to page, update on contractions, and pt refusal of magnesium treatment. Orders received to administer first dose of betamethasone and pt to discharge AMA.
[2024-10-17] MEDS: BETAMETHASONE SOD PHOS/ACETATE 30 MG/5 ML VIAL 12 MG IM (02:22)
--- NOTE | 2024-10-17 02:22 | PC.NURSE ---
RN at bedside, discuss risks of leaving AMA, pt verbalizes understanding, pt does not have any concerns at this time.
--- NOTE | 2024-10-17 02:30 | PC.NURSE ---
Pt discharged AMA with risks of leaving AMA discussed and consents signed, instructions to keep next scheduled appointment, and when to return to the unit, pt verbalizes understanding and no other concerns at this time.
--- NOTE | 2024-10-18 08:34 | PM.OBTRLD ---
OB - Triage/Final Diagnosis Visit Information Reason for evaluation: threatened labor Comments/Additional reasons for admission: I have assessed the risk for this patient, Zohreh Kvein, and determined that she would benefit from observation care.
== END 2024-10-17 02:30 | disposition home or self-care (01) ==
PROVIDERS: Admitting Provider Obstetrics & Gynecology; Visit Provider Obstetrics & Gynecology
DX: O47.1 False labor at or after 37 completed weeks of gestation (principal); Z3A.35 35 weeks gestation of pregnancy
CPT/HCPCS: 76815; 76819; 96360; 96372; G0378; G0379; J0702; J3105; J7120

== ENCOUNTER 2024-10-22 14:55 | Outpatient (CLI) | payer OTHER, SELFPAY ==
[2024-10-22] VITALS (7 sets, daily range): BP systolic 140–160; BP diastolic 82–89; PULSE 75–82; BMI 41.4
--- OUTSIDE RECORDS SUMMARY | 2024-10-22 08:55 | XMS_ITS | Encounter Summary ---
Author Organization [facility] Address [address] [place] [address] Care Team Providers Care Director Of Oncology Name Role Phone Unknown, Provider Primary Care [...] Profile w T Sarita Davis MD [address] [place] [address] Phone: tel: fax: Referral ID Status Reason Start Date Expiration Date Visits Re quested Visits Authorized [id number] Open 10/07/2024 10/07/2025 7 7 Reason for [...] Profile w T Sarita Davis MD [address] [place] [address] Phone: tel: fax: Referral ID Status Reason Start Date Expiration Date Visits Re quested Visits Authorized [id number] Open 10/07/2024 10/07/2025 7 7 Encounter Details Date Type Department Care Team (Late st Contact Info) Description 10/22/2024 8:55 AM CDT Hospital Encounter [facility] Women's Health Maternal & Care [address] [place] [address] Debra Sifuentes MD [address] [facility] [address] [address] Social History Tobacco Use Types Packs/Day Years [...] money to get more. Never true 08/22/2024 [place] Depression Scale Answer Date Recorded [place] Depression Scale Total 4 08/22/2024 The thought of harming myself has occurred to me . 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 Davis Patient here at 35w5d for ultrasound, NST, DE, and follow up provider visit due to GDM. Reporting irregular ctx; denies leaking fluid or vaginal bleeding. Denies headache, visual changes,or RUQ pain. Reports feeling movement.Home medications reviewed. 145/91, repeat 142/83 Urine dip today = trace protein Educated on labor precautions. See note per Sahil Schulz for further plan of care. BPP 09/27, NST reactive; reviewed by Sahil Schulz ASSOCIATE LOAN OFFICER. MFM follow up: 10/25 NST only Blood work obtained for CBC & CMP; patient tolerated well. Sent via [employer]. BP 142/83 Pulse 84 Wt 127 kg (280 lb) Name: Zohreh Kevin Date of : 1990 Today's Date: 10/22/2024 35w5d NST RESULTS (GONCALVES) OBJECTIVE FINDINGS , Pulse: 84, , BP: 142/83 NST Indication(s): Gestational diabetes Uterine Irritability: Yes Contractions: Irregular Frequency: 6 Duration (sec) Range: 60-120 Perceived Intensity: Moderate (breathing through ctx) OBJECTIVE FINDINGS Movement: Present Monitoring Mode: External OTHER INFORMATION Barbra Arzate RN * Maida Schulz, CLAM PICKER-DISHCLOTH FOLDER - 10/22/2024 8:57 AM CDT Images from the original note were not included. [facility] follow up visit Zohreh Kevin is a 34 year old 35w5d. We are following her for AMA, GDM, history of GDM and preeclampsia. History of C/S and in subsequent . She has no complaints today. Continues to wear Samantha sensor. S/p hospitalization for PTL 10/16. S/p 2 doses BMZ, some BS elevations day after injections. She reports good FM, no bleeding, no LOF, no DC, some contractions, no current MCCURDY's, vision changes, RUQ pain. She shares she did have a MCCURDY over the weekend, which was relieved with Tylenol and rest. Believes it was related to work stress. Genetic screening/testing: cf-DNA is low-risk Her is complicated by: Patient Active Problem List Diagnosis Date Noted AMA (advanced maternal age) multigravida 35+, third trimester ([facility]) 10/15/2024 Priority: Not Prioritized Gestational diabetes mellitus (GDM) in third trimester ([facility]) 10/15/2024 Priority: Not Prioritized History of gestational diabetes mellitus (GDM) 10/15/2024 Priority: Not Prioritized Depression screen 08/22/2024 Priority: Not Prioritized 08/22/2024 Zohreh Kevin was screened for depression using the [place] Depression Scale (EPDS) at her [facility] initial evaluation on 08/22/2024. Her initial scoreat baseline was 4. Based off of her score of 4, Zohreh does not warrant follow up. Patient will continue to be screened throughout , at intervals no closer than two weeks, for continued surveillance and early identification of depression until delivery. Patient reports mental health history. Diagnoses include anxiety. LONG-TERM- abnormality in ([facility])- Pelvic Kidney 07/30/2024 Priority: Not Prioritized LONG-TERM PATIENT--PLEASE CALL [phone] (ex 2) IF TRIAGED OR ADMITTED Care Provider: Dr. Davis; [facility] consultants involved: Marissa- Nurse Navigator; Dr. 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 Villa: -recommend renal ultrasound in first week of life; -follow up with pediatric nephrology at 1 month of life with repeat renal ultrasound; -call office with interval concerns. Aeronautics Teacher: Dr. Mckeon through [facility] [employer] Concerns: 08/22/2024-Patient with history of anxiety- does take medication Care plan based on evaluation and is subject to change based on assessment. See Images or Cardiac under Chart Review for US/ ECHO/ MRI reports. Exam: BP 142/83 Pulse 84 Wt 127 kg (280 lb) General: NAD Abdomen: soft, NT Extremities: equal in size and width bilaterally, NT, no sign of edema FHT: per US Urine dip: negative glucose, negative ketones, negative protein, negative blood Labs: CBC, CMP, pcr WNL on 10/10/24 (scanned into media) US: Please see report for details. Impressions/Recs 1. IUP (Intrauterine ) at 35w5d 2. AMA LR NIPT 3. GDM, history of GDM in G1 She presents with blood sugar logs for review via [employer]. Logs reveal good glycemic control. Elevations d/t ANCS. No changes indicated at this time. Recommended to continue diabetic diet. After hours triage [...] 1 hr gtt at 26-28 weeks. 4. Newly dx gHTN (as of 10/22/24) - Hx of preeclampsia - 145/91-->142/83 today - Previous elevation 10/10: 140/85 - Meets criteria for gHTN - Weekly labs, CMP CBC P/C collected today - Twice weekly testing - Delivery @ 37 weeks - LDASA 162mg daily - Continue to monitor for preeclampsia. S&S reviewed again today. 5. 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 We reviewed kick counts (BID), as well as PTL and preeclampsia signs and symptoms. 7. RTC: twice weekly testing, weekly ASSOCIATE LOAN OFFICER/CDE 8. Keep all appointments with primary OB Recommend delivery @ 37 weeks d/t dx gHTN. Attempted to call OB office regarding update in recommended POC, no answer, left message for call back. I spent 30 minutes with the patient, [...] me directly, or contact one of the [facility] physicians. HITESH Plummer 10/22/2024 10:51 AM documented in this encounter Plan of Treatment Upcoming Encounters Date Type Department Care Team (Late st Contact Info) Description 10/25/2024 8:15 AM CDT Appointment [facility] [address] [place] [address] 10/29/2024 7:30 AM CDT Appointment [facility] [address] [place] [address] 10/29/2024 8:15 AM CDT Appointment [facility] [address] [place] [address] 10/29/2024 8:15 AM CDT Appointment [facility] [address] [place] [address] 10/29/2024 8:15 AM CDT Appointment [facility] [address] [place] [address] 11/05/2024 7:30 AM CDT Appointment [facility] [address] [place] [address] 11/05/2024 8:15 AM CDT Appointment [facility] [address] [place] [address] 11/05/2024 8:15 AM CDT Appointment [facility] [address] [place] [address] 11/12/2024 7:30 AM CDT Appointment [facility] [address] [place] [address] 11/12/2024 8:15 AM CDT Appointment [facility] [address] [place] [address] 11/12/2024 9:00 AM CDT Appointment [facility] [address] [place] [address] 11/12/2024 9:45 AM CDT Appointment [facility] [address] [place] [address] Scheduled Orders Name Type Priority Associated Diagnoses Orde r Schedule PROTEIN CREATININE RATIO URINE RANDOM PNL Lab Routine Gestational hypertension, third trimester (HCC) 1 Occurrences starting 10/22/2024 until 10/17/2025 COMPREHENSIVE METABOLIC PANEL Lab Routine Gestational hypertension, third trimester (HCC) 1 Occurrences starting 10/22/2024 until 10/17/2025 CBC WITH DIFFERENTIAL Lab Routine Gestational hypertension, third trimester (HCC) 1 Occurrences starting 10/22/2024 until 10/17/2025 documented as of this encounter Procedures Procedure Name Priority Date/Time Associated Diagnosis Comments BIOPHYSICAL PROFILE W NST Routine 10/22/2024 9:28 AM CDT 33 weeks gestation of ([facility]) AMA (advanced maternal age) multigravida 35+, third trimester ([facility]) with history of section, antepartum ([facility]) History of gestational diabetes in prior , currently ([facility]) Gestational diabetes mellitus (GDM) in third trimester, gestational diabetes method of control unspecified ([facility]) abnormality affecting management of mother, single or unspecified fetus ([facility]) documented in this encounter Results * Biophysical Profile w NST (10/22/2024 9:28 AM CDT) Linked Results Indication ======== Advanced maternal age (AMA), multigravida Gestational diabetes mellitus in , unspecified control Maternal obesity complicating , class 2 (BMI 35.0 - 39.9) abnormality, unspecified Anxiety on Zoloft , Prior C/S History ====== OB History 6. Para 2 [id number] 1. miscarriage 2014. Details: 1st trimester 2. live 08/06/2016. Details: delivery 3. elective termination 2018. Details: 1st trimester 4. live 08/19/2020. Details: Vaginal delivery 5. miscarriage 2022. Details: 1st trimester Lab Tests Test Date Result NIPT Low risk, Male Maternal Assessment Physical Exam Height 175 cm, 5 ft 9 in. Weight 127 kg, 280 lb. Initial weight 122 kg, 268 lb. BMI 41.35 kg/m . Initial BMI 39.58 kg/m . Weight gain 5 kg, 12 lb Method ====== Transabdominal ultrasound examination. View: Sufficient ========= Goncalves . Number of fetuses: 1 Dating ====== Date Details Gest. age [place] LMP 02/15/2024 35 w + 5 d 11/21/2024 Stated [place] 35 w + 5 d 11/21/2024 Previous U/S 04/11/2024 GA, GA 7 w + 4 d 35 w + 2 d 11/24/2024 Assigned dating based on the LMP, selected on 07/05/2024 35 w + 5 d 11/21/2024 General Evaluation Cardiac activity present. FHR 164 bpm. Presentation: cephalic Placenta: Placental site: anterior Amniotic Fluid Assessment ==== Amount of AF: normal MVP 8.6 cm. LASHANDA 23.7 cm. Q1 8.6 cm, Q2 5.5 cm, Q3 3.5 cm, Q4 6.1 cm Biophysical Profile 2: breathing movements 2: Gross body movements 2: tone 2: Amniotic fluid volume NST: reactive 11/29 Biophysical profile score Non Stress Test NST interpretation: reactive. Baseline FHR 150 bpm. Baseline variability: moderate. Accelerations: present. Decelerations: present, variable, < 30 seconds Growth Overview Exam date GA BPD (mm) [...] male. Impression ========= Single, live, intrauterine at 35w 5d The amniotic fluid volume is normal. The biophysical profile is 11/29. Comment ======== ultrasound alone cannot detect all structural, genetic, or functional , placental, or maternal abnormalities Follow-up ======== for weekly NST and biophysical profile Coding ====== Diagnoses O09.523: Supervision of elderly multigravida O24.419: Gestational diabetes mellitus in , unspecified control O99.213, E66.812: Obesity complicating , class 2 (BMI 35.0 - 39.9) O35.8XX0: Maternal care for other (suspected) abnormality and damage Procedures 04306: US Uterus Limited 05709: Biophysical Profile W NST [facility] [employer] PACS Anatomical Region Laterality Modality Other 10/22/2024 9:28 AM CDT us Sarita Davis MD [facility] ORDERABLES Edited Resu lt - Final documented in this encounter Visit Diagnoses Diagnosis 35 weeks gestation of (HCC)- Primary state, incidental AMA (advanced maternal age) multigravida 35+, third trimester (HCC) Gestational diabetes mellitus (GDM) in third trimester, gestational diabetes method of control unspecified (HCC) abnormality affecting management of mother, single or unspecified fetus (HCC) 33 weeks gestation of (HCC) state, incidental with history of section, antepartum (HCC) History of gestational diabetes in prior , currently (HCC) with other poor obstetric history Gestational hypertension, third trimester (HCC) documented in this encounter Care Teams Director Of Oncology Relationship Specialty Start Date End Date Unknown, Provider PCP - General 07/05/24 documented as of this encounter
--- OUTSIDE RECORDS SUMMARY | 2024-10-22 15:10 | XMS_ITS ---
Author Organization [facility] Produ ction (ClinicalSummary Clone) Address Unknown Care Team Providers Care Tube Molder Fiberglass Name Role Phone Unavailable Primary Care Physician Unavailab le Results * [UNITY] ANEUPLOIDY NIPT Performed by: [employer] Component Value Range Date Fraction 5.1% 05/16/2024 [...]
--- OUTSIDE RECORDS SUMMARY | 2024-10-22 15:10 | XMS_ITS | Clinical Summary ---
Author Organization [employer] [facility]vall Address [address] [place] [address] Phone Care Team Providers Care Real Property Appraiser Name Role Phone Farhad Whitehead DO Primary [...] 04/01/2024 Active fluticasone propionate (FLONASE) 50 mcg/spray [place], Suspension nasal inhalerIndicatio ns:Viral upper respiratory infection [...] 11/30/19 23 Leakage of amniotic fluid 08/19/2020 TRACK SERVICE PERSON , GDMA1, Girl 08/19/2020 023 Threatened premature [...] COVID-19 VACCINE - EMERGENCY USE AUTHORIZATION, MRNA, [id number](PF) 30 MCG/0.3 ML IM SUSP 09/14/2020,08/26/2020 (TDVAX)(7 [...] on file Legal Sex Female 4:25 AM DOUBLE END TRIMMER Gender Identity Not on file Sexual Orientation [...] SCREEN PAP W/HPV Routine 01/11/2024 12:01 PM DOUBLE END TRIMMER Well woman exam with routine gynecological exam Screening for cervical cancer Special screening examination for human papillomavirus (HPV) from Last 3 Months or Most Recently Relevant to Health Maintenance Results * CERV/VAG CYTO SCREEN PAP W/HPV (01/11/2024 12:01 PM DOUBLE END TRIMMER) CLINICAL INFORMATION [facility] [place] Comment:SCREENING LAST MENSTRUAL PERIOD [facility] [place] Comment:NONE GIVEN PREV PAP: [facility] [place] Comment:NONE GIVEN PREV BX: [facility] [place] Comment:NONE GIVEN SOURCE [facility] [place] Comment:ENDOCERVIX ADEQUACY: [facility] [place] Comment: Satisfactory for evaluation. Endocervical/transformation zone component present. Age and/or menstrual status not provided PAP INTERP [facility] [place] Comment: Cytology Results: Negative for intraepithelial lesion or malignancy. COMMENT (PAP TEST) [facility] [place] Comment: This Pap test has been evaluated with computer assisted technology. SIDE LASTER: [facility] [place] Comment: YQ, CT(ASCP) CT screening location: [place] [address] [place] [address] EXPLANATORY NOTE [facility] [place] Comment: EXPLANATORY NOTE: The Pap is a [...] information. HPV E6/E7 Not Detected Not Detected [facility] Comment: Methodology: Furnace Repairer-Mediated Amplification This assay detects E6/E7 viral messenger RNA (mRNA) from 14 high-risk HPV types (16,18,31,33,35,39,45,51,52,56,58,59,66,68). Cervical sources are required for HPV testing. If a vaginal source from a patient who has had a total hysterectomy with removal of cervix was submitted, please contact the testing laboratory for alternative testing options. For additional information, please refer to http://education.Topio/faq/RWG114b9 (This link if provided for information/ educational purposes only.) Test Performed at: [facility] [address] [place] [address] Duglas MATHIS Genital SWAB OF ENDOCERVIX / Unknown 01/11/2024 12:01 PM DOUBLE END TRIMMER 01/12/2024 1:29 AM DOUBLE END TRIMMER us Ann Bryant TRACK SERVICE PERSON PATHOLOGY/CYTOLOGY ORDERABLE S Final Result [facility] [phone] [facility] [address] [place] [address] from Last 3 Months or Most Recently Relevant to Health Maintenance Insurance BLUE [employer] CHOICE [employer] [place] [address] [id number] Advance Directives For more information, please contact: [phone] * Full Code (Latest Code Status on [...] 10:11 AM 05/14/2020 2:33 PM Care Teams Real Property Appraiser Relationship Specialty [place] [address] [facility] [address] [place] [address] PCP - General Internal Medicine 01/24/22
--- OUTSIDE RECORDS SUMMARY | 2024-10-22 15:10 | XMS_ITS | Clinical Summary ---
Author Organization [facility] Address [address] [place] [address] Care Team Providers Care Rn Hematology Name Role Phone Unknown, Provider Primary Care Provider Unavaila ble Source Comments [facility],non-owned Affiliates and Associated Physician Practices is amultiple site organization consisting of ambulatory clinics and hospital sitesin [place], [place] and [place]. This disclosure is being madepursuant to the Care Everywhere program and may not contain all information available regarding this patient. Last updated 17.[facility] [email or web address] Allergies Active Allergy Reactions Criticality Noted Date [...] problem list. Problem Noted Date Diagnosed Date Gestational hypertension, third trimester 2024 AMA (advanced maternal age) multigravida 35+, third trimester 10/15/2024 Gestational diabetes mellitus (GDM) in third tri mester 10/15/2024 History of gestational diabetes mellitus (GDM) 0 10/15/2024 Depression screen 08/22/2024 Overview (08/22/2024): 08/22/2024 Zohreh Kevin was screened for depression using the Jber Depression Scale (EPDS) at her [facility] initial evaluation on 08/22/2024. Her initial score at baseline was 4. Based off of her score of 4, Zohreh does not warrant follow up. Patient will continue to be screened throughout , at intervals no closer than two weeks, for continued surveillance and early identification of depression until delivery. Patient reports mental health history. Diagnoses include anxiety. 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 RETIREMENT PATIENT--PLEASE CALL [phone] (ex 2) IF TRIAGED OR ADMITTED Care Provider: Dr. Davis; [facility] consultants involved: Marissa- Nurse Navigator; Dr. 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 office in [place], [place] for growth and AFV; Released from RETIREMENT 08/22/24 Delivery location: [facility] Delivery mode: Per usual OB indications Desired Delivery GA: Per usual OB indications follow up: Per Dr. Villa: -recommend renal ultrasound in first week of life; -follow up with pediatric nephrology at 1 month of life with repeat renal ultrasound; -call office with interval concerns. Plasma Center Technician: Dr. Mckeon through [facility] [employer] Concerns: 08/22/2024-Patient with history of anxiety- does take medication Care plan based on evaluation and is subject to change based on assessment. See Images or Cardiac under Chart Review for US/ ECHO/ MRI reports. Estimated Date of Delivery Comme nts Yes 11/21/2024 Based on last me nstrual period of 02/15/2024 Encounters Date Type Department Care Team Description 10/22/2024 8:55 AM CDT Hospital Encounter [facility] [address] [place] [address] Debra Sifuentes MD 10/15/2024 7:31 AM CDT - 10/15/2024 11:59 PM CDT Hospital Encounter [facility] Maternal & Care [address] [place] [address] Farhad Casarez MD Discharge Disposition: Home or Self Care 10/15/2024 7:31 AM CDT - 10/15/2024 11:59 PM CDT Hospital Encounter [facility] Maternal & Care [address] [place] [address] Farhad Casarez MD Discharge Disposition: Home or Self Care 10/15/2024 7:31 AM CDT - 10/15/2024 11:59 PM CDT Hospital Encounter [facility] Maternal & Care [address] [place] [address] Farhad Casarez MD Discharge Disposition: Home or Self Care 10/15/2024 7:30 AM CDT Hospital Encounter [facility]aternal & Care [address] [place] [address] Farhad Casarez MD Discharge Disposition: Home or Self Care 10/10/2024 8:55 AM CDT - 10/10/2024 11:59 PM CDT Hospital Encounter [facility] Maternal & Care [address] [place] [address] Toni Peguero DO Discharge Disposition: Home or Self Care 09/26/2024 Telephone [facility] Care [address] [place] [address] Mine Elizabeth Appointment 09/17/2024 7:30 AM CDT - 09/17/2024 11:59 PM CDT Hospital Encounter [facility] Maternal [facility] Care [address] [place] [address] Blayne Mancera MD Discharge Disposition: Home or Self Care 08/22/2024 12:00 PM CDT - 08/22/2024 11:59 PM CDT Hospital Encounter [facility] Care [address] [address] Manny Miles MD SANITATION LEAD Discharge Disposition: Home or Self Care 08/21/[address] [address] Lorena Jarrett Reminder Call 08/01/2024 7:30 AM CDT - 08/01/2024 11:59 PM CDT Hospital Encounter [facility] [place] [address] Farhad Casarez MD Dildy, Gary A, MD Discharge Disposition: Home or Self Care 07/29/[address] [address] Makeda Garcia, silver buffer 07/29/[address] [facility] Care [address] [address] Makeda Garcia, silver buffer 07/26/2024 Telephone [facility] Care [address] [address] Makeda Garcia, silver buffer from Last 3 Months Social History Tobacco [...] money to get more. Never true 08/22/2024 Jber Depression Scale Answer Date Recorded Jber Depression Scale Total 4 08/22/2024 The thought of harming myself has occurred to me . Never 08/22/2024 Estimated Date of Delivery Comme nts Yes 11/21/2024 Based on last me nstrual period of 02/15/2024 Sex and Gender Information Value Date Recorded Sex Assigned at Not on file Legal Sex Female 6:23 AM ABORIGINAL CEREMONIAL CELEBRANT Gender Identity Not on file Sexual Orientation Not on file Last Filed Vital Signs Vital Sign Reading Time Taken Comments Blood Pressure 142/83 10/22/2024 10:16 AM CDT Pulse 84 10/22/2024 10:16 AM CDT Temperature - - Respiratory Rate - - Oxygen Saturation - - Inhaled Oxygen Concentration - - Weight 127 kg (280 lb) 10/22/2024 10:03 AM CDT Height 175.3 cm (5' 9) 07/05/2024 8:54 AM CDT Body Mass Index 41.35 07/05/2024 8:54 AM CDT Plan of Treatment Upcoming Encounters Date Type Department Care Team (Late st Contact Info) Description 10/25/2024 8:15 AM CDT Appointment [facility] Maternal & Care [address] [place] [address] 10/29/2024 7:30 AM CDT Appointment [facility] [address] [place] [address] 10/29/2024 8:15 AM CDT Appointment [facility] [address] [place] [address] 10/29/2024 8:15 AM CDT Appointment [facility] [address] [place] [address] 10/29/2024 8:15 AM CDT Appointment [facility] [address] [place] [address] 11/05/2024 7:30 AM CDT Appointment [facility] [address] [place] [address] 11/05/2024 8:15 AM CDT Appointment [facility] [address] [place] [address] 11/05/2024 8:15 AM CDT Appointment [facility] Care [address] [place] [address] 11/12/2024 7:30 AM CDT Appointment [facility] [address] [place] [address] 11/12/2024 8:15 AM CDT Appointment [facility] [address] [place] [address] 11/12/2024 9:00 AM CDT Appointment [facility] [address] [place] [address] 11/12/2024 9:45 AM CDT Appointment [facility] [address] [place] [address] Health Maintenance Due Date Last Done Comments HIV SCREENING 10/01/2003 HEPATITIS C SCREENING 09/26/2006 DTAP/TDAP/TD VACCINES (1 - Tdap) 10/01/2007 HEPATITIS B VACCINE (1 of 3 - 19+ 3-dose series) 10/01/2007 HPV VACCINE (1 - 3-dose SCDM series) 10/01/2015 OB-ONE HOUR GLUCOSE 08/15/2024 OB-TDAP CURRENT 08/22/20242020, 10/15/2012 OB-RHOGAM INJECTION 08/29/2024 OB-GROUP B STREP SCREEN 10/17/2024 COVID-19 VACCINE (4 - 2024-2 6 season) 2024 03/26/2021, 09/14/2020, 08/26/2020 INFLUENZA VACCINE (#1) 2024 Respiratory Syncytial Virus [...] Date/Time Associated Diagnosis Comments BIOPHYSICAL PROFILE W T Routine 10/22/2024 9:28 AM CDT 33 weeks gestation of (HCC) AMA (advanced maternal age) multigravida 35+, third trimester (HCC) with history of section, antepartum (HCC) History of gestational diabetes in prior , currently (HCC) Gestational diabetes mellitus (GDM) in third trimester, gestational diabetes method of control unspecified ([facility]) abnormality affecting management of mother, single or unspecified fetus (HCC) BIOPHYSICAL PROFILE W T Routine 10/15/2024 7:55 AM CDT 33 weeks gestation of (HCC) AMA (advanced maternal age) multigravida 35+, third trimester (HCC) with history of section, antepartum (HCC) History of gestational diabetes in prior , currently (HCC) Gestational diabetes mellitus (GDM) in third trimester, gestational diabetes method of control unspecified (HCC) abnormality affecting management of mother, single or unspecified fetus (HCC) BIOPHYSICAL PROFILE W T Routine 10/10/2024 9:16 AM CDT 33 weeks [...] AM CDT 30 weeks gestation of (HCC) RETIREMENT- abnormality in (HCC)- Pelvic Kidney Encounter for ultrasound to assess growth (HCC) SONOGRAM - COMPLETE Routine 08/22/2024 1 2:38 PM CDT abnormality affecting management of mother, single or unspecified fetus (HCC) SONOGRAM - COMPLETE Routine 08/01/2024 7 :33 AM CDT Sixth (HCC) History of History of delivery History of gestational diabetes mellitus (GDM) 23 weeks gestation of (HCC) Encounter for ultrasound (HCC) from Last 3 Months Results * Biophysical Profile w NST (10/22/2024 9:28 AM CDT) Only the most recent of3 resultswithin the time period is included. Linked Results Indication ======== Advanced maternal age (AMA), multigravida Gestational diabetes mellitus in , unspecified control Maternal obesity complicating , class 2 (BMI 35.0 - 39.9) abnormality, unspecified Anxiety on Zoloft , Prior C/S History ====== OB History 6. Para 2 [id number] 1. miscarriage 2014. Details: 1st trimester 2. [...] for other (suspected) abnormality and damage Procedures 88752: US Uterus Limited 46971: Biophysical Profile W NST [place] PACS Anatomical Region Laterality Modality Other 10/22/2024 9:28 AM CDT us Sarita Davis MD [facility] ORDERABLES Edited Resu lt - Final * Sonogram - Complete (09/17/2024 7:49 AM CDT) Only the most recent of3 resultswithin the time period is included. Linked Results Indication ======== Advanced maternal age (AMA), multigravida Maternal obesity complicating , class 2 (BMI 35.0 - 39.9) abnormality, unspecified pelvic kidney Anxiety on Zoloft , Prior C/S History ====== OB History 6. Para 2 [id number] 1. miscarriage 2014. Details: 1st trimester 2. [...] 4 lb 15 oz EFW by [place] ([id number]) LGA Growth Overview Exam date [place] BPD [...] at 36 weeks gestation Coding ====== Procedures [id number]: US Preg Uterus Follow Up [place] [facility] PACS Anatomical Region Laterality Modality Other 09/17/2024 7:49 AM CDT Sarita Davis MD [facility] ORDERABLES Edited Resu lt - Final from Last [address] [facility] Care Teams Rn Hematology Relationship Specialty Start Date End Date Unknown, Provider PCP - General 07/05/24
--- OUTSIDE RECORDS SUMMARY | 2024-10-22 15:11 | XMS_ITS | Encounter Summary ---
Author Organization [facility] Address [address] [place] [address] Care Team Providers Care Count Team Member Name Role Phone VenturaFarhad DO Primary Care Provider Encounter Details Date Type Department Care Team (Late st Contact Info) Description 05/22/2000 Outpatient Historical [facility] [address] [place] [address] [place] [address] [place] [address] Social History Tobacco Use Types Packs/Day Years Used Date Smoking Tobacco: Never Assessed Comments Unknown Sex and Gender Information Value Date Recorded Sex Assigned at Not on file Legal Sex Female 4:25 AM LAB MANAGER Gender Identity Not on file Sexual Orientation Not on file documented as of this encounter Plan of Treatment Not on file documented as of this encounter Visit Diagnoses Not on filedocumented in this encounter Additional Health Concerns Infection Onset Date Last Indicated Resolved Time R/O COVID-19 03/17/2021 03/18/2021 03/19/2021 1:53 AM LAB MANAGER documented as of this encounter Care Teams Count Team Member Relationship Specialty [place] [address] [place] [address] PCP - General Internal Medicine 01/24/22 documented as of this encounter
--- OUTSIDE RECORDS SUMMARY | 2024-10-22 15:11 | XMS_ITS | Encounter Summary ---
Author Organization [facility] Address [address] [place] [address] Care Team Providers Care Guidance Adviser Name Role Phone VenturaFarhad DO Primary Care Provider Encounter Details Date Type Department Care Team (Late st Contact Info) Description 02/28/2003 Outpatient Historical [facility] [address] [place] [address] [place] [address] [place] [address] Social History Tobacco Use Types Packs/Day Years Used Date Smoking Tobacco: Never Assessed Comments Unknown Sex and Gender Information Value Date Recorded Sex Assigned at Not on file Legal Sex Female 4:25 AM COMPUTER CUSTOMER SUPPORT SPECIALIST Gender Identity Not on file Sexual Orientation Not on file documented as of this encounter Plan of Treatment Not on file documented as of this encounter Visit Diagnoses Not on filedocumented in this encounter Additional Health Concerns Infection Onset Date Last Indicated Resolved Time R/O COVID-19 03/17/2021 03/18/2021 03/19/2021 1:53 AM COMPUTER CUSTOMER SUPPORT SPECIALIST documented as of this encounter Care Teams Guidance Adviser Relationship Specialty [place] [address] [place] [address] PCP - General Internal Medicine 01/24/22 documented as of this encounter
--- OUTSIDE RECORDS SUMMARY | 2024-10-22 15:11 | XMS_ITS | Encounter Summary ---
Author Organization [facility] Address [address] [place] [address] Care Team Providers Care Overhead Crane Truck Loader Name Role Phone Unavailable Primary Care Provider Unavailabl e Prior Encounters Date Type Department Care Team Description 03/11/2019 Converted CPS Chart Documents [facility] [place] [facility] [address] [place] [address] <No scans attached> 03/11/2019 Converted 13x Documents [facility] [facility] [address] [place] [address] <No scans attached> Plan of Treatment Not on file Procedures Procedure Name Priority Date/Time Associated Diagnosis Comments COMPREHENSIVE ORAL EVALUATION - NEW OR ESTABLISHED PATIENT Routine 09/04/2018 2:00 AM CDT 19 CROWN - FULL CAST HIGH DORESY METAL Routine 09/03/2018 2:00 AM CDT 31 SUE AMALGAM 2 SURFACE Routine 09/04/19 19 2:00 AM CDT 30 SUE AMALGAM 2 SURFACE Routine 09/04/19 19 2:00 AM CDT 19 ENDODONTIC THERAPY, MOLAR TOOTH (EXCLUDING FINAL MANDAEN) Routine 09/03/2018 2:00 AM CDT PANORAMIC RADIOGRAPHIC [...]
--- OUTSIDE RECORDS SUMMARY | 2024-10-22 15:11 | XMS_ITS | Encounter Summary ---
Author Organization [facility] Address [address] [place] [address] Care Team Providers Care Entry Level Civil Engineer Name Role Phone VenturaFarhad DO Primary Care Provider Encounter Details Date Type Department Care Team (Late st Contact Info) Description 07/02/2002 Outpatient Historical [facility] [address] [place] [address] [place] [address] [place] [address] Social History Tobacco Use Types Packs/Day Years Used Date Smoking Tobacco: Never Assessed Comments Unknown Sex and Gender Information Value Date Recorded Sex Assigned at Not on file Legal Sex Female 4:25 AM K 12 PRINCIPAL Gender Identity Not on file Sexual Orientation Not on file documented as of this encounter Plan of Treatment Not on file documented as of this encounter Visit Diagnoses Not on filedocumented in this encounter Additional Health Concerns Infection Onset Date Last Indicated Resolved Time R/O COVID-19 03/17/2021 03/18/2021 03/19/2021 1:53 AM K 12 PRINCIPAL documented as of this encounter Care Teams Entry Level Civil Engineer Relationship Specialty Start [place] [address] [place] [address] PCP - General Internal Medicine 01/24/22 documented as of this encounter
--- OUTSIDE RECORDS SUMMARY | 2024-10-22 15:11 | XMS_ITS | Encounter Summary ---
Author Organization [facility] Address [address] [place] [address] Care Team Providers Care Branch Associate Teller Name Role Phone Farhad Whitehead DO Primary Care Provider Encounter Details Date Type Department Care Team (Late st Contact Info) Description 01/18/2007 Outpatient Historical [facility] [address] [place] [address] [place] [address] [place] [address] Social History Tobacco Use Types Packs/Day Years Used Date Smoking Tobacco: Never Assessed Comments Unknown Sex and Gender Information Value Date Recorded Sex Assigned at Not on file Legal Sex Female 4:25 AM TREATING PLANT OPERATOR Gender Identity Not on file Sexual Orientation Not on file documented as of this encounter Plan of Treatment Not on file documented as of this encounter Visit Diagnoses Not on filedocumented in this encounter Additional Health Concerns Infection Onset Date Last Indicated Resolved Time R/O COVID-19 03/17/2021 03/18/2021 03/19/2021 1:53 AM TREATING PLANT OPERATOR documented as of this encounter Care Teams Branch Associate Teller Relationship Specialty Start Date End Date [place] GarciaDO [address] [place] [address] PCP - General Internal Medicine 01/24/22 documented as of this encounter
--- OUTSIDE RECORDS SUMMARY | 2024-10-22 15:11 | XMS_ITS | Encounter Summary ---
Author Organization [employer] [facility] Address [address] [place] [address] Care Team Providers Care Vp Home Health Name Role Phone VenturaFarhad DO Primary Care Provider Encounter Details Date Type Department Care Team (Late st Contact Info) Description 07/11/2003 Outpatient Historical [facility] [address] [place] [address] [place] [address] [place] [address] Social History Tobacco Use Types Packs/Day Years Used Date Smoking Tobacco: Never Assessed Comments Unknown Sex and Gender Information Value Date Recorded Sex Assigned at Not on file Legal Sex Female 4:25 AM RETAIL SERVICE TECHNICIAN Gender Identity Not on file Sexual Orientation Not on file documented as of this encounter Plan of Treatment Not on file documented as of this encounter Visit Diagnoses Not on filedocumented in this encounter Additional Health Concerns Infection Onset Date Last Indicated Resolved Time R/O COVID-19 03/17/2021 03/18/2021 03/19/2021 1:53 AM RETAIL SERVICE TECHNICIAN documented as of this encounter Care Teams Vp Home Health Relationship Specialty Start [place] [address] [place] [address] PCP - General Internal Medicine 01/24/22 documented as of this encounter
--- OUTSIDE RECORDS SUMMARY | 2024-10-22 15:11 | XMS_ITS | Encounter Summary ---
Author Organization [facility] Address [address] [place] [address] Care Team Providers Care Doughnut Glazier Name Role Phone VenturaFarhad boone DO Primary Care Provider Encounter Details Date Type Department Care Team (Late st Contact Info) Description 05/17/2001 Outpatient Historical [facility] [address] [place] [address] Zay Chilel MD [address] [place] [address] Social History Tobacco Use Types Packs/Day Years Used Date Smoking Tobacco: Never Assessed Comments Unknown Sex and Gender Information Value Date Recorded Sex Assigned at Not on file Legal Sex Female 4:25 AM INDUSTRIAL RETROFIT DESIGNER Gender Identity Not on file Sexual Orientation Not on file documented as of this encounter Plan of Treatment Not on file documented as of this encounter Visit Diagnoses Not on filedocumented in this encounter Additional Health Concerns Infection Onset Date Last Indicated Resolved Time R/O COVID-19 03/17/2021 03/18/2021 03/19/2021 1:53 AM INDUSTRIAL RETROFIT DESIGNER documented as of this encounter Care Teams Doughnut Glazier Relationship Specialty Start Date [place] [address] [place] [address] PCP - General Internal Medicine 01/24/22 documented as of this encounter
--- OUTSIDE RECORDS SUMMARY | 2024-10-22 15:11 | XMS_ITS | Encounter Summary ---
Author Organization [facility] Address [address] [place] [address] Care Team Providers Care Auto Body Estimator Name Role Phone Farhad Whitehead DO Primary Care Provider Encounter Details Date Type Department Care Team (Late st Contact Info) Description 01/03/2002 Outpatient Historical [facility] [address] [place] [address] Natalee Julien MD [address] [address] Social History Tobacco Use Types Packs/Day Years Used Date Smoking Tobacco: Never Assessed Comments Unknown Sex and Gender Information Value Date Recorded Sex Assigned at Not on file Legal Sex Female 4:25 AM SPRING FITTER HELPER Gender Identity Not on file Sexual Orientation Not on file documented as of this encounter Plan of Treatment Not on file documented as of this encounter Visit Diagnoses Not on filedocumented in this encounter Additional Health Concerns Infection Onset Date Last Indicated Resolved Time R/O COVID-19 03/17/2021 03/18/2021 03/19/2021 1:5 3 AM SPRING FITTER HELPER documented as of this encounter Care Teams Auto Body Estimator Relationship Specialty Start Date End Date VenturaFarhad Garcia, [address] [place] [address] PCP - General Internal Medicine 01/24/22 documented as of this encounter
--- OUTSIDE RECORDS SUMMARY | 2024-10-22 15:11 | XMS_ITS | Clinical Summary ---
Author Organization [facility] Address [facility] [address] [place] [address] Care Team Providers Care Principal Database Developer Name Role Phone None, Provider MD Primary [...] patient's age to complete this topic [place] [address] [place] [id number] [facility] Care Teams Principal Database Developer Relationship Specialty Start Date End Date None, Provider, MD PCP - General UNKNOWN PHYSICIAN SPECIALTY 10/01/22
--- OUTSIDE RECORDS SUMMARY | 2024-10-22 15:11 | XMS_ITS | Encounter Summary ---
Author Organization [facility] Address [address] [place] [address] Care Team Providers Care Church History Teacher Name Role Phone VenturaFarhadda DO Primary Care Provider Encounter Details Date Type Department Care Team (Late st Contact Info) Description 01/17/2000 Outpatient Historical [facility] [address] [place] [address] [place] [address] [place] [address] Social History Tobacco Use Types Packs/Day Years Used Date Smoking Tobacco: Never Assessed Comments Unknown Sex and Gender Information Value Date Recorded Sex Assigned at Not on file Legal Sex Female 4:25 AM WOODWIND REEDS CUTTER Gender Identity Not on file Sexual Orientation Not on file documented as of this encounter Plan of Treatment Not on file documented as of this encounter Visit Diagnoses Not on filedocumented in this encounter Additional Health Concerns Infection Onset Date Last Indicated Resolved Time R/O COVID-19 03/17/2021 03/18/2021 03/19/2021 1:53 AM WOODWIND REEDS CUTTER documented as of this encounter Care Teams Church History Teacher Relationship Specialty [place] [address] [place] [address] PCP - General Internal Medicine 01/24/22 documented as of this encounter
--- OUTSIDE RECORDS SUMMARY | 2024-10-22 15:11 | XMS_ITS | Encounter Summary ---
Author Organization [facility] Address [address] [place] [address] Care Team Providers Care Personal Injury Paralegal Name Role Phone VenturaFarhadda DO Primary Care Provider Encounter Details Date Type Department Care Team (Late st Contact Info) Description 11/08/2005 Outpatient Historical [facility] [address] [place] [address] [place] [address] [place] [address] Social History Tobacco Use Types Packs/Day Years Used Date Smoking Tobacco: Never Assessed Comments Unknown Sex and Gender Information Value Date Recorded Sex Assigned at Not on file Legal Sex Female 4:25 AM CAPTAIN WAITER/WAITRESS Gender Identity Not on file Sexual Orientation Not on file documented as of this encounter Plan of Treatment Not on file documented as of this encounter Visit Diagnoses Not on filedocumented in this encounter Additional Health Concerns Infection Onset Date Last Indicated Resolved Time R/O COVID-19 03/17/2021 03/18/2021 03/19/2021 1:53 AM CAPTAIN WAITER/WAITRESS documented as of this encounter Care Teams Personal Injury Paralegal Relationship Specialty [place] [address] [place] [address] PCP - General Internal Medicine 01/24/22 documented as of this encounter
--- OUTSIDE RECORDS SUMMARY | 2024-10-22 15:11 | XMS_ITS | Encounter Summary ---
Author Organization [facility] Address [address] [place] [address] Care Team Providers Care Knife Blade Polisher Name Role Phone VenturaFarhadda DO Primary Care Provider Encounter Details Date Type Department Care Team (Late st Contact Info) Description 12/17/1999 Outpatient Historical [facility] [address] [place] [address] [place] [address] [place] [address] Social History Tobacco Use Types Packs/Day Years Used Date Smoking Tobacco: Never Assessed Comments Unknown Sex and Gender Information Value Date Recorded Sex Assigned at Not on file Legal Sex Female 4:25 AM MAIL WEIGHER Gender Identity Not on file Sexual Orientation Not on file documented as of this encounter Plan of Treatment Not on file documented as of this encounter Visit Diagnoses Not on filedocumented in this encounter Additional Health Concerns Infection Onset Date Last Indicated Resolved Time R/O COVID-19 03/17/2021 03/18/2021 03/19/2021 1:53 AM MAIL WEIGHER documented as of this encounter Care Teams Knife Blade Polisher Relationship Specialty [place] [address] [place] [address] PCP - General Internal Medicine 01/24/22 documented as of this encounter
--- OUTSIDE RECORDS SUMMARY | 2024-10-22 15:11 | XMS_ITS | Encounter Summary ---
Author Organization [facility] Address [address] [place] [address] Care Team Providers Care Chief Media Officer Name Role Phone VenturaFarhad DO Primary Care Provider Encounter Details Date Type Department Care Team (Late st Contact Info) Description 07/20/2001 Outpatient Historical [facility] [address] [place] [address] [place] [address] [place] [address] Social History Tobacco Use Types Packs/Day Years Used Date Smoking Tobacco: Never Assessed Comments Unknown Sex and Gender Information Value Date Recorded Sex Assigned at Not on file Legal Sex Female 4:25 AM CHART CHANGER Gender Identity Not on file Sexual Orientation Not on file documented as of this encounter Plan of Treatment Not on file documented as of this encounter Visit Diagnoses Not on filedocumented in this encounter Additional Health Concerns Infection Onset Date Last Indicated Resolved Time R/O COVID-19 03/17/2021 03/18/2021 03/19/2021 1:53 AM CHART CHANGER documented as of this encounter Care Teams Chief Media Officer Relationship Specialty [place] [address] [place] [address] PCP - General Internal Medicine 01/24/22 documented as of this encounter
--- OUTSIDE RECORDS SUMMARY | 2024-10-22 15:11 | XMS_ITS | Encounter Summary ---
Author Organization [facility] Address [address] [place] [address] Care Team Providers Care Card Tape Converter Operator Name Role Phone VenturaFarhadda DO Primary Care Provider Encounter Details Date Type Department Care Team (Late st Contact Info) Description 2005 Outpatient Historical [facility] [address] [place] [address] [place] [address] [place] [address] Social History Tobacco Use Types Packs/Day Years Used Date Smoking Tobacco: Never Assessed Comments Unknown Sex and Gender Information Value Date Recorded Sex Assigned at Not on file Legal Sex Female 4:25 AM GOLF SHOE SPIKE ASSEMBLER Gender Identity Not on file Sexual Orientation Not on file documented as of this encounter Plan of Treatment Not on file documented as of this encounter Visit Diagnoses Not on filedocumented in this encounter Additional Health Concerns Infection Onset Date Last Indicated Resolved Time R/O COVID-19 03/17/2021 03/18/2021 03/19/2021 1:53 AM GOLF SHOE SPIKE ASSEMBLER documented as of this encounter Care Teams Card Tape Converter Operator Relationship Specialty [place] [address] [place] [address] PCP - General Internal Medicine 01/24/22 documented as of this encounter
--- OUTSIDE RECORDS SUMMARY | 2024-10-22 15:11 | XMS_ITS | Clinical Summary ---
Author Organization [facility] Address [address] [place] [address] Care Team Providers Care Packaging Designer Name Role Phone Unavailable Primary Care Provider [...]
--- OUTSIDE RECORDS SUMMARY | 2024-10-22 15:11 | XMS_ITS | Encounter Summary ---
Author Organization [facility] Address [address] [place] [address] Care Team Providers Care Environmental Monitoring Technician Name Role Phone VenturaFarhadda DO Primary Care Provider Encounter Details Date Type Department Care Team (Late st Contact Info) Description 04/09/2001 Outpatient Historical [facility] [address] [place] [address] [place] [address] [place] [address] Social History Tobacco Use Types Packs/Day Years Used Date Smoking Tobacco: Never Assessed Comments Unknown Sex and Gender Information Value Date Recorded Sex Assigned at Not on file Legal Sex Female 4:25 AM COUNTY HEALTH OFFICER Gender Identity Not on file Sexual Orientation Not on file documented as of this encounter Plan of Treatment Not on file documented as of this encounter Visit Diagnoses Not on filedocumented in this encounter Additional Health Concerns Infection Onset Date Last Indicated Resolved Time R/O COVID-19 03/17/2021 03/18/2021 03/19/2021 1:53 AM COUNTY HEALTH OFFICER documented as of this encounter Care Teams Environmental Monitoring Technician Relationship Specialty [place] [address] [place] [address] PCP - General Internal Medicine 01/24/22 documented as of this encounter
--- OUTSIDE RECORDS SUMMARY | 2024-10-22 15:11 | XMS_ITS | Encounter Summary ---
Author Organization [facility] Address [address] [place] [address] Care Team Providers Care Architecture Faculty Member Name Role Phone VenturaFarhad DO Primary Care Provider Encounter Details Date Type Department Care Team (Late st Contact Info) Description 08/04/2000 Outpatient Historical [facility] [address] [place] [address] [place] [address] [place] [address] Social History Tobacco Use Types Packs/Day Years Used Date Smoking Tobacco: Never Assessed Comments Unknown Sex and Gender Information Value Date Recorded Sex Assigned at Not on file Legal Sex Female 4:25 AM HEEL FORMER Gender Identity Not on file Sexual Orientation Not on file documented as of this encounter Plan of Treatment Not on file documented as of this encounter Visit Diagnoses Not on filedocumented in this encounter Additional Health Concerns Infection Onset Date Last Indicated Resolved Time R/O COVID-19 03/17/2021 03/18/2021 03/19/2021 1:53 AM HEEL FORMER documented as of this encounter Care Teams Architecture Faculty Member Relationship Specialty [place] [address] [place] [address] PCP - General Internal Medicine 01/24/22 documented as of this encounter
--- OUTSIDE RECORDS SUMMARY | 2024-10-22 15:11 | XMS_ITS | Encounter Summary ---
Author Organization [facility] Address [address] [place] [address] Care Team Providers Care Manager Casino Name Role Phone VenturaFarhadda DO Primary Care Provider Encounter Details Date Type Department Care Team (Late st Contact Info) Description 10/19/2001 Outpatient Historical [facility] [address] [place] [address] [place] [address] [place] [address] Social History Tobacco Use Types Packs/Day Years Used Date Smoking Tobacco: Never Assessed Comments Unknown Sex and Gender Information Value Date Recorded Sex Assigned at Not on file Legal Sex Female 4:25 AM MEDICAL IMAGING TECH Gender Identity Not on file Sexual Orientation Not on file documented as of this encounter Plan of Treatment Not on file documented as of this encounter Visit Diagnoses Not on filedocumented in this encounter Additional Health Concerns Infection Onset Date Last Indicated Resolved Time R/O COVID-19 03/17/2021 03/18/2021 03/19/2021 1:53 AM MEDICAL IMAGING TECH documented as of this encounter Care Teams Manager Casino Relationship Specialty [place] [address] [place] [address] PCP - General Internal Medicine 01/24/22 documented as of this encounter
--- OUTSIDE RECORDS SUMMARY | 2024-10-22 15:11 | XMS_ITS | Encounter Summary ---
Author Organization [facility] Address [address] [place] [address] Care Team Providers Care Regional Production Manager Name Role Phone VenturaFarhad DO Primary Care Provider Encounter Details Date Type Department Care Team (Late st Contact Info) Description 03/09/2004 Outpatient Historical [facility] [address] [place] [address] [place] [address] [place] [address] Social History Tobacco Use Types Packs/Day Years Used Date Smoking Tobacco: Never Assessed Comments Unknown Sex and Gender Information Value Date Recorded Sex Assigned at Not on file Legal Sex Female 4:25 AM RADIO INTERFERENCE INVESTIGATOR Gender Identity Not on file Sexual Orientation Not on file documented as of this encounter Plan of Treatment Not on file documented as of this encounter Visit Diagnoses Not on filedocumented in this encounter Additional Health Concerns Infection Onset Date Last Indicated Resolved Time R/O COVID-19 03/17/2021 03/18/2021 03/19/2021 1:53 AM RADIO INTERFERENCE INVESTIGATOR documented as of this encounter Care Teams Regional Production Manager Relationship Specialty [place] [address] [place] [address] PCP - General Internal Medicine 01/24/22 documented as of this encounter
--- OUTSIDE RECORDS SUMMARY | 2024-10-22 15:11 | XMS_ITS | Encounter Summary ---
Author Organization [facility] Address [address] [place] [address] Care Team Providers Care Platen Grinder Name Role Phone VenturaFarhadda DO Primary Care Provider Encounter Details Date Type Department Care Team (Late st Contact Info) Description 12/08/2006 Outpatient Historical [facility] [address] [place] [address] [place] [address] [place] [address] Social History Tobacco Use Types Packs/Day Years Used Date Smoking Tobacco: Never Assessed Comments Unknown Sex and Gender Information Value Date Recorded Sex Assigned at Not on file Legal Sex Female 4:25 AM SERVER CASHIER Gender Identity Not on file Sexual Orientation Not on file documented as of this encounter Plan of Treatment Not on file documented as of this encounter Visit Diagnoses Not on filedocumented in this encounter Additional Health Concerns Infection Onset Date Last Indicated Resolved Time R/O COVID-19 03/17/2021 03/18/2021 03/19/2021 1:53 AM SERVER CASHIER documented as of this encounter Care Teams Platen Grinder Relationship Specialty [place] [address] [place] [address] PCP - General Internal Medicine 01/24/22 documented as of this encounter
--- OUTSIDE RECORDS SUMMARY | 2024-10-22 15:11 | XMS_ITS | Encounter Summary ---
Author Organization [facility] Address [address] [place] [address] Care Team Providers Care Doweling Machine Operator Name Role Phone VenturaFarhad DO Primary Care Provider Encounter Details Date Type Department Care Team (Late st Contact Info) Description 05/03/2002 Outpatient Historical [facility] [address] [place] [address] [place] [address] [place] [address] Social History Tobacco Use Types Packs/Day Years Used Date Smoking Tobacco: Never Assessed Comments Unknown Sex and Gender Information Value Date Recorded Sex Assigned at Not on file Legal Sex Female 4:25 AM CRATE ICER Gender Identity Not on file Sexual Orientation Not on file documented as of this encounter Plan of Treatment Not on file documented as of this encounter Visit Diagnoses Not on filedocumented in this encounter Additional Health Concerns Infection Onset Date Last Indicated Resolved Time R/O COVID-19 03/17/2021 03/18/2021 03/19/2021 1:53 AM CRATE ICER documented as of this encounter Care Teams Doweling Machine Operator Relationship Specialty [place] [address] [place] [address] PCP - General Internal Medicine 01/24/22 documented as of this encounter
--- OUTSIDE RECORDS SUMMARY | 2024-10-22 15:11 | XMS_ITS | Encounter Summary ---
Author Organization [facility] Address [address] [place] [address] Care Team Providers Care Wireless Telegrapher Name Role Phone VenturaFarhadda DO Primary Care Provider Encounter Details Date Type Department Care Team (Late st Contact Info) Description 09/28/2006 Outpatient Historical [facility] [address] [place] [address] [place] [address] [place] [address] Social History Tobacco Use Types Packs/Day Years Used Date Smoking Tobacco: Never Assessed Comments Unknown Sex and Gender Information Value Date Recorded Sex Assigned at Not on file Legal Sex Female 4:25 AM SODA DISPENSER Gender Identity Not on file Sexual Orientation Not on file documented as of this encounter Plan of Treatment Not on file documented as of this encounter Visit Diagnoses Not on filedocumented in this encounter Additional Health Concerns Infection Onset Date Last Indicated Resolved Time R/O COVID-19 03/17/2021 03/18/2021 03/19/2021 1:53 AM SODA DISPENSER documented as of this encounter Care Teams Wireless Telegrapher Relationship Specialty [place] [address] [place] [address] PCP - General Internal Medicine 01/24/22 documented as of this encounter
--- OUTSIDE RECORDS SUMMARY | 2024-10-22 15:11 | XMS_ITS | Encounter Summary ---
Author Organization [facility] Address [address] [place] [address] Care Team Providers Care Harnessmaker Apprentice Name Role Phone VenturaFarhad DO Primary Care Provider Encounter Details Date Type Department Care Team (Late st Contact Info) Description 11/02/2004 Outpatient Historical [facility] [address] [place] [address] [place] [address] [place] [address] Social History Tobacco Use Types Packs/Day Years Used Date Smoking Tobacco: Never Assessed Comments Unknown Sex and Gender Information Value Date Recorded Sex Assigned at Not on file Legal Sex Female 4:25 AM CHRISTIAN SCIENCE NURSE Gender Identity Not on file Sexual Orientation Not on file documented as of this encounter Plan of Treatment Not on file documented as of this encounter Visit Diagnoses Not on filedocumented in this encounter Additional Health Concerns Infection Onset Date Last Indicated Resolved Time R/O COVID-19 03/17/2021 03/18/2021 03/19/2021 1:53 AM CHRISTIAN SCIENCE NURSE documented as of this encounter Care Teams Harnessmaker Apprentice Relationship Specialty [place] [address] [place] [address] PCP - General Internal Medicine 01/24/22 documented as of this encounter
--- OUTSIDE RECORDS SUMMARY | 2024-10-22 15:11 | XMS_ITS | Encounter Summary ---
Author Organization [facility] Address [address] [place] [address] Care Team Providers Care Delivery Helper Name Role Phone VenturaFarhad DO Primary Care Provider Encounter Details Date Type Department Care Team (Late st Contact Info) Description 10/30/2002 Outpatient Historical [facility] [address] [place] [address] [place] [address] [place] [address] Social History Tobacco Use Types Packs/Day Years Used Date Smoking Tobacco: Never Assessed Comments Unknown Sex and Gender Information Value Date Recorded Sex Assigned at Not on file Legal Sex Female 4:25 AM FLEXIBLE SHAFT WINDER Gender Identity Not on file Sexual Orientation Not on file documented as of this encounter Plan of Treatment Not on file documented as of this encounter Visit Diagnoses Not on filedocumented in this encounter Additional Health Concerns Infection Onset Date Last Indicated Resolved Time R/O COVID-19 03/17/2021 03/18/2021 03/19/2021 1:53 AM FLEXIBLE SHAFT WINDER documented as of this encounter Care Teams Delivery Helper Relationship Specialty Start [place] [address] [place] [address] PCP - General Internal Medicine 01/24/22 documented as of this encounter
--- OUTSIDE RECORDS SUMMARY | 2024-10-22 15:11 | XMS_ITS | Encounter Summary ---
Author Organization [facility] Address [address] [place] [address] Care Team Providers Care Benefits Assistant Name Role Phone VenturaFarhad DO Primary Care Provider Encounter Details Date Type Department Care Team (Late st Contact Info) Description 09/02/2004 Outpatient Historical [facility] [id number] [place] [address] [place] [address] [place] [address] Social History Tobacco Use Types Packs/Day Years Used Date Smoking Tobacco: Never Assessed Comments Unknown Sex and Gender Information Value Date Recorded Sex Assigned at Not on file Legal Sex Female 4:25 AM DRAW BENCH OPERATOR HELPER Gender Identity Not on file Sexual Orientation Not on file documented as of this encounter Plan of Treatment Not on file documented as of this encounter Visit Diagnoses Not on filedocumented in this encounter Additional Health Concerns Infection Onset Date Last Indicated Resolved Time R/O COVID-19 03/17/2021 03/18/2021 03/19/2021 1:53 AM DRAW BENCH OPERATOR HELPER documented as of this encounter Care Teams Benefits Assistant Relationship Specialty [place] [address] [place] [address] PCP - General Internal Medicine 01/24/22 documented as of this encounter
--- OUTSIDE RECORDS SUMMARY | 2024-10-22 15:11 | XMS_ITS | Encounter Summary ---
Author Organization [facility] Address [address] [place] [address] Care Team Providers Care [place] Tour Guide Name Role Phone Farhad Whitehead DO Primary Care Provider Encounter Details Date Type Department Care Team (Late st Contact Info) Description 02/22/2005 Outpatient Historical [facility] [id number] [place] [address] [place] [address] [place] [address] Social History Tobacco Use Types Packs/Day Years Used Date Smoking Tobacco: Never Assessed Comments Unknown Sex and Gender Information Value Date Recorded Sex Assigned at Not on file Legal Sex Female 4:25 AM WILDLIFE BIOSTATION RESEARCH ECOLOGIST Gender Identity Not on file Sexual Orientation Not on file documented as of this encounter Plan of Treatment Not on file documented as of this encounter Visit Diagnoses Not on filedocumented in this encounter Additional Health Concerns Infection Onset Date Last Indicated Resolved Time R/O COVID-19 03/17/2021 03/18/2021 03/19/2021 1:53 AM WILDLIFE BIOSTATION RESEARCH ECOLOGIST documented as of this encounter Care Teams National [place] Tour Guide Relationship Specialty Start Date End Date [place]DO [address] [place] [address] PCP - General Internal Medicine 01/24/22 documented as of this encounter
[2024-10-22 15:47] LABS: Hematocrit 32.5 % (37.0-47.0); Hemoglobin 10.7 g/dL (12.0-15.0); Immature Granulocyte Percent A 0.6 % (0-0.5); Lymphocytes Absolute Auto 1.58 K/mm3 (0.9-3.2); Mean Corpuscular HGB Conc 32.9 g/dl (32-36); Mean Corpuscular Hemoglobin 27.8 pg (26-34); Mean Corpuscular Volume 84.4 fl (80-100); Nucleated Red Blood Cells Absolute Auto 0.000 K/mm3 (0.0-0.012); Nucleated Red Blood Cells Perc 0.0 % (0.0-0.2); Platelet Count Result 256 k/mm3 (150-375); Red Blood Count 3.85 M/mm3 (4.2-5.4); White Blood Count 6.4 K/mm3 (4.5-10.0)
[2024-10-22 15:51] LABS: Add Urine Microscopic? YES; Appearance Urine Cloudy (Clear); Glucose Urine UA Negative (Negative); Leukocyte Esterase Ur Trace LEU/UL (Negative); Nitrate Urine Negative (Negative); Non Pathogenic Casts 0-2; Specific Grav Ur 1.016 (1.001-1.035)
[2024-10-22 16:01] LABS: Total Protein Urine Random 12 mg/dL; Ur Ttl Prot Creatinine Ratio 0.14 mg/mg (0-0.20)
[2024-10-22 16:03] LABS: Alanine Aminotransferase 22 U/L (6-35); Albumin Level 3.1 g/dL (3.5-5.1); Alkaline Phosphatase 217 U/L (38-126); Anion Gap 8 mmol/L (4-12); Aspartate Amino Transferase 32 U/L (14-36); Bilirubin,Total 0.1 mg/dL (0.2-1.3); Blood Urea Nitrogen 13 mg/dL (7-17); Calcium 9.2 mg/dL (8.4-10.2); Carbon Dioxide 19 mmol/L (22-30); Chloride 109 mmol/L (98-107); Estimated Glomerular Filt Rate > 60; Glucose 103 mg/dL (65-110); Potassium 3.5 mmol/L (3.4-5.0); Sodium 136 mmol/L (137-145); Total Protein 6.4 g/dL (6.3-8.2); Uric Acid 5.6 mg/dL (2.5-7.5)
== END 2024-10-22 17:31 | disposition home or self-care (01) ==
LOC: ANHOBOP 14:59 → ANHOBPP 15:00
PROVIDERS: Visit Provider Obstetrics & Gynecology Gynecology
DX: O13.9 Gestational [pregnancy-induced] hypertension without significant proteinuria, unspecified trimester (principal); Z3A.00 Weeks of gestation of pregnancy not specified
CPT/HCPCS: 36415; 59025; 80053; 81001; 82570; 84156; 84550; 85025; 99199

== ENCOUNTER 2024-10-23 20:05 | Outpatient (NON) | payer OTHER, SELFPAY ==
[2024-10-23 20:18] VITALS: BMI 41.4
[2024-10-23 20:36] LABS: Total Volume 24 Hour Urine 1750 ml
[2024-10-23 20:45] LABS: Creatinine Clearance Urine 91.8 ml/min (75-125); Serum Creat 0.67; Total Protein Urine 24 Hr 245 mg/24hr (28-141); Total Protein Urine Random 14 mg/dL
== END 2024-10-23 20:06 | disposition home or self-care (01) ==
LOC: ANHOBOP 20:16
PROVIDERS: Visit Provider Obstetrics & Gynecology Gynecology
DX: Z34.90 Encounter for supervision of normal pregnancy, unspecified, unspecified trimester (principal); Z3A.00 Weeks of gestation of pregnancy not specified
CPT/HCPCS: 81050; 82575; 84156

== ENCOUNTER 2024-10-28 20:00 | Inpatient (IN) | payer OTHER, SELFPAY ==
[2024-10-28] VITALS (59 sets, daily range): BP systolic 137–176; BP diastolic 84–100; PULSE 84–124; TEMP 36.6; O2SAT 99–100; BMI 37.4
[2024-10-28] MEDS: LABETALOL HCL 100 MG TABLET PO ×2 (18:00→22:27)
--- NOTE | 2024-10-28 22:16 | LDADM ---
This patient, Zohreh Kevin, was admitted to Labor/Delivery/Recovery 103 on 10/28/24 at 20:00. Plans for labor, pain management and were discussed with patient. Patient/family oriented to hospital policies and general routines including ID bracelet, bed and alarms, visiting hours, pain management, procedures, bathroom and other care routines, personal items, smoking policy, room service/diet and guest tray routines, infant security routines, and visiting hours. Patient/Family are encouraged to report perceived risks to care and to ask questions if they do not understand what they are told or what they should do. See OBIX for further documentation.
[2024-10-28] MEDS: LACTATED RINGERS 1,000 ML 125 ML IV CONT (22:28)
[2024-10-28 22:29] LABS: Hematocrit 36.3 % (37.0-47.0); Hemoglobin 11.9 g/dL (12.0-15.0); Immature Granulocyte Percent A 0.3 % (0-0.5); Immature Platelet Fraction Pct 9.2 % (0.9-11.2); Lymphocytes Absolute Auto 2.02 K/mm3 (0.9-3.2); Mean Corpuscular HGB Conc 32.8 g/dl (32-36); Mean Corpuscular Hemoglobin 27.4 pg (26-34); Mean Corpuscular Volume 83.4 fl (80-100); Nucleated Red Blood Cells Absolute Auto 0.020 K/mm3 (0.0-0.012); Nucleated Red Blood Cells Perc 0.3 % (0.0-0.2); Platelet Count Result 254 k/mm3 (150-375); Red Blood Count 4.35 M/mm3 (4.2-5.4); White Blood Count 7.7 K/mm3 (4.5-10.0)
[2024-10-28] MEDS: fentaNYL CITRATE INJ (*CRX) 100 MCG/2 ML VIAL IV PUSH (22:57)
[2024-10-28 23:23] LABS: Alanine Aminotransferase 21 U/L (6-35); Albumin Level 3.3 g/dL (3.5-5.1); Alkaline Phosphatase 237 U/L (38-126); Anion Gap 7 mmol/L (4-12); Aspartate Amino Transferase 23 U/L (14-36); Bilirubin,Total 0.3 mg/dL (0.2-1.3); Blood Urea Nitrogen 13 mg/dL (7-17); Calcium 9.9 mg/dL (8.4-10.2); Carbon Dioxide 18 mmol/L (22-30); Chloride 108 mmol/L (98-107); Estimated CRCL calculation 131 ml/min; Estimated Glomerular Filt Rate > 60; Glucose 116 mg/dL (65-110); Potassium 3.9 mmol/L (3.4-5.0); Sodium 133 mmol/L (137-145); Total Protein 6.8 g/dL (6.3-8.2); Uric Acid 5.5 mg/dL (2.5-7.5)
--- NOTE | 2024-10-28 23:42 | P.PNAN_ITS ---
Anes - Eval Pre Procedure Procedure: Labor epidural Date/Time: 10/28/24 23:42 Surgeon: foster Preop Diagnosis: Abdominal pain with contractions Pre Op Diagnosis: elevated blood pressure Patient Data Age: 34 Gender: F Height: 1.75 m Weight: 115 kg Last Vital Signs Pulse 93 10/28/24 23:30 BP 176/99 H 10/28/24 23:30 Pulse Ox 99 10/28/24 23:38 Allergies Allergy/AdvReac Type Severity Reaction Status Date / Time ethinyl estradiol (From Allergy Hives Verified 10/22/24 13:57 Nu[facility]) [facility] Allergy Hives Verified 10/22/24 13:57 Home Medications ?Medication ?Instructions ?Recorded ?Confirmed ?Type aspirin 81 mg capsule 81 mg PO DAILY 08/26/2404/16 History vit no.95-ferrous 1 tablet PO DAILY 08/26/24 10/22/24 History fumarate 28 mg-folic acid 800 mcg tablet () sertraline 50 mg tablet (Zoloft) 50 mg PO DAILY 10/22/24 History Laboratory Tests 10/28/24 10/28/24 10/28/24 22:17 22:59 22:59 WBC 7.7 K/mm3 (4.5-10.0) RBC 4.35 M/mm3 (4.2-5.4) Hgb 11.9 L g/dL (12.0-15.0) Hct 36.3 L % (37.0-47.0) MCV 83.4 fl (80-100) MCH 27.4 pg (26-34) MCHC 32.8 g/dl (32-36) RDW 14.3 % (11.5-14.5) Plt Count 254 k/mm3 (150-375) MPV 12.6 H fl (7.4-10.4) Immature Gran % (Auto) 0.3 % (0-0.5) Neut % (Auto) 62.0 % (45.5-73.1) Lymph % (Auto) 26.3 % (18.3-44.2) [place] % (Auto) 10.2 H % (2.6-8.5) Eos % (Auto) 0.8 % (0-4.4) Baso % (Auto) 0.4 % (0.2-1.2) Lymph # (Auto) 2.02 K/mm3 (0.9-3.2) [place] # (Auto) 0.8 H K/mm3 (0.1-0.6) Eos # (Auto) 0.1 K/mm3 (0-0.3) Baso # (Auto) 0.0 K/mm3 (0.0-0.1) Abs Immat Gran (auto) 0.02 K/mm3 (0.00-0.031) Absolute Neuts (auto) 4.8 K/mm3 (1.3-6.7) Absolute Nucleated RBC 0.020 H K/mm3 (0.0-0.012) Nucleated RBC % 0.3 H % (0.0-0.2) % Immature Plt Fraction 9.2 % (0.9-11.2) Sodium 133 L mmol/L Cancelled (137-145) Potassium 3.9 mmol/L (3.4-5.0) Chloride Carbon Dioxide Anion Gap BUN Creatinine Estim Creat Clear Calc Estimated GFR Glucose Uric Acid Calcium Total Bilirubin AST ALT Alkaline Phosphatase Total Protein Albumin Blood Type A Positive Antibody Screen Negative 10/28/24 10/28/24 10/28/24 22:59 22:59 22:59 WBC RBC Hgb Hct MCV MCH MCHC RDW Plt Count MPV Immature Gran % (Auto) Neut % (Auto) Lymph % (Auto) [place] % (Auto) Eos % (Auto) Baso % (Auto) Lymph # (Auto) [place] # (Auto) Eos # (Auto) Baso # (Auto) Abs Immat Gran (auto) Absolute Neuts (auto) Absolute Nucleated RBC Nucleated RBC % % Immature Plt Fraction Sodium Potassium Cancelled Chloride 108 H mmol/L Cancelled (98-107) Carbon Dioxide 18 L mmol/L Cancelled (22-30) Anion Gap 7 mmol/L (4-12) BUN Creatinine Estim Creat Clear Calc Estimated GFR Glucose Uric Acid Calcium Total Bilirubin AST ALT Alkaline Phosphatase Total Protein Albumin Blood Type Antibody Screen 10/28/24 10/28/24 10/28/24 22:59 22:59 22:59 WBC RBC Hgb Hct MCV MCH MCHC RDW Plt Count MPV Immature Gran % (Auto) Neut % (Auto) Lymph % (Auto) [place] % (Auto) Eos % (Auto) Baso % (Auto) Lymph # (Auto) [place] # (Auto) Eos # (Auto) Baso # (Auto) Abs Immat Gran (auto) Absolute Neuts (auto) Absolute Nucleated RBC Nucleated RBC % % Immature Plt Fraction Sodium Potassium Chloride Carbon Dioxide Anion Gap Cancelled BUN 13 mg/dL Cancelled (7-17) Creatinine 0.69 L mg/dL Cancelled (0.7-1.0) Estim Creat Clear Calc 131 ml/min Estimated GFR Glucose Uric Acid Calcium Total Bilirubin AST ALT Alkaline Phosphatase Total Protein Albumin Blood Type Antibody Screen 10/28/24 10/28/24 10/28/24 22:59 22:59 22:59 WBC RBC Hgb Hct MCV MCH MCHC RDW Plt Count MPV Immature Gran % (Auto) Neut % (Auto) Lymph % (Auto) [place] % (Auto) Eos % (Auto) Baso % (Auto) Lymph # (Auto) [place] # (Auto) Eos # (Auto) Baso # (Auto) Abs Immat Gran (auto) Absolute Neuts (auto) Absolute Nucleated RBC Nucleated RBC % % Immature Plt Fraction Sodium Potassium Chloride Carbon Dioxide Anion Gap BUN Creatinine Estim Creat Clear Calc Cancelled Estimated GFR > 60 Cancelled (59 - ) Glucose 116 H mg/dL Cancelled (65-110) Uric Acid 5.5 mg/dL (2.5-7.5) Calcium 9.9 mg/dL (8.4-10.2) Total Bilirubin AST ALT Alkaline Phosphatase Total Protein Albumin Blood Type Antibody Screen 10/28/24 10/28/24 10/28/24 22:59 22:59 22:59 WBC RBC Hgb Hct MCV MCH MCHC RDW Plt Count MPV Immature Gran % (Auto) Neut % (Auto) Lymph % (Auto) [place] % (Auto) Eos % (Auto) Baso % (Auto) Lymph # (Auto) [place] # (Auto) Eos # (Auto) Baso # (Auto) Abs Immat Gran (auto) Absolute Neuts (auto) Absolute Nucleated RBC Nucleated RBC % % Immature Plt Fraction Sodium Potassium Chloride Carbon Dioxide Anion Gap BUN Creatinine Estim Creat Clear Calc Estimated GFR Glucose Uric Acid Calcium Cancelled Total Bilirubin 0.3 mg/dL Cancelled (0.2-1.3) AST 23 U/L Cancelled (14-36) ALT 21 U/L (6-35) Alkaline Phosphatase Total Protein Albumin Blood Type Antibody Screen 10/28/24 10/28/24 10/28/24 22:59 22:59 22:59 WBC RBC Hgb Hct MCV MCH MCHC RDW Plt Count MPV Immature Gran % (Auto) Neut % (Auto) Lymph % (Auto) [place] % (Auto) Eos % (Auto) Baso % (Auto) Lymph # (Auto) [place] # (Auto) Eos # (Auto) Baso # (Auto) Abs Immat Gran (auto) Absolute Neuts (auto) Absolute Nucleated RBC Nucleated RBC % % Immature Plt Fraction Sodium Potassium Chloride Carbon Dioxide Anion Gap BUN Creatinine Estim Creat Clear Calc Estimated GFR Glucose Uric Acid Calcium Total Bilirubin AST ALT Cancelled Alkaline Phosphatase 237 H U/L Cancelled (38-126) Total Protein 6.8 g/dL Cancelled (6.3-8.2) Albumin 3.3 L g/dL (3.5-5.1) Blood Type Antibody Screen 10/28/24 22:59 WBC RBC Hgb Hct MCV MCH MCHC RDW Plt Count MPV Immature Gran % (Auto) Neut % (Auto) Lymph % (Auto) [place] % (Auto) Eos % (Auto) Baso % (Auto) Lymph # (Auto) [place] # (Auto) Eos # (Auto) Baso # (Auto) Abs Immat Gran (auto) Absolute Neuts (auto) Absolute Nucleated RBC Nucleated RBC % % Immature Plt Fraction Sodium Potassium Chloride Carbon Dioxide Anion Gap BUN Creatinine Estim Creat Clear Calc Estimated GFR Glucose Uric Acid Calcium Total Bilirubin AST ALT Alkaline Phosphatase Total Protein Albumin Cancelled Blood Type Antibody Screen : gestational age HCG: positive Patient hx anesthesia problems: none Family hx anesthesia problems: none Results Review: All pre-operative results and documents have been reviewed as part of the pre- operative evaluation. [facility] Past Medical History Medical History and not yet delivered Obesity Family History Family History Other Hypertension Social History Social History Smoking status: Never smoker Substance use: never Do You Feel Safe in your Home?: Yes Lack of Transportation: No Lack of Food: Never True Current Housing: I Have Housing Concerned About Future Housing: No Difficulty Paying Gas/Electric Bills: No Difficulty Paying for Meds: No Currently Unemployed: No Education: Master's Degree or Higher Difficulty w/ Childcare or Family Care: No Spiritual care concerns: No Exam Day of Procedure 10/28/24 23:42 Patient weight: obese
[2024-10-28 23:49] LABS: Syphilis IgG/IgM Antibody Non-Reactive (Nonreactive)
[2024-10-29] VITALS (129 sets, daily range): BP systolic 85–164; BP diastolic 31–103; PULSE 75–109; RESP 14–22; TEMP 36.3–37.4; O2SAT 87–100
--- NOTE | 2024-10-29 02:58 | PM.OBPNLAB ---
Pain Control Date/time seen: 10/29/24 02:58 Pain control: tolerating well and epidural Comments: Failure placental was present. IUPC placed. Pelvic Exam Dilation (cm): 4 Effacement (%): 75 station: -3 Amniotic membrane status: Leaking
--- NOTE | 2024-10-29 03:00 | PM.IMHP ---
H&P: HPI History of Present Illness Date/Time: 10/29/24 03:00 Chief Complaint: Hypertension at term Narrative: 4-year-old 5 para 2 with a previous section and a successful TOLAC presents at 36 and 5 7th weeks gestation with elevated blood pressures. She was being observed spontaneously went into labor. She apparently had an abnormal diabetic screen but has been diet controlled and sugars have been normal under text, thus far. She is negative for group B strep Review of Systems Review of Systems: CONSTITUTIONAL: Denies body aches, fever, chills, or sweats. EYES: Denies visual changes, redness, or discharge. ENT: Reports rhinorrhea, congestion, denies sore throat, or otalgia. CARDIOVASCULAR: Reports right sided chest pain, denies palpitations, or edema. RESPIRATORY: denies cough, sob, wheezing. GASTROINTESTINAL: Denies abdominal pain, nausea, vomiting, or diarrhea. GENITOURINARY: Denies dysuria or hematuria. SKIN: Denies rash, itching, or wounds. MUSCULOSKELETAL: Denies back pain, joint pain, or myalgia. NEUROLOGIC: Reports headache, denies numbness, tingling, or weakness. PSYCH: Reports anxiety. All systems reviewed & are unremarkable except as noted in HPI and below PMFSH Past Medical History Medical History and not yet delivered Obesity Family History Family History Other Hypertension Social History Social History Smoking status: Never smoker Substance use: never Do You Feel Safe in your Home?: Yes Lack of Transportation: No Lack of Food: Never True Current Housing: I Have Housing Concerned About Future Housing: No Difficulty Paying Gas/Electric Bills: No Difficulty Paying for Meds: No Currently Unemployed: No Education: Master's Degree or Higher Difficulty w/ Childcare or Family Care: No Spiritual care concerns: No Meds Home Medications and Allergies Home Medications ?Medication ?Instructions ?Recorded ?Confirmed ?Type aspirin 81 mg capsule 81 mg PO DAILY 08/26/24 10/29/24 History vit no.95-ferrous 1 tablet PO DAILY 08/26/24 10/29/24 History fumarate 28 mg-folic acid 800 mcg tablet () sertraline 50 mg tablet (Zoloft) 50 mg PO DAILY 08/26/24 10/29/24 History Allergies Allergy/AdvReac Type Severity Reaction Status Date / Time ethinyl estradiol (From Allergy Hives Verified 10/22/24 13:57 [facility]) etonogestrel (From [facility]) Allergy Hives Verified 10/22/24 13:57 Vital Signs Vital Signs - 24 hr 10/28/24 17:46 10/28/24 18:00 10/28/24 18:01 Temperature Pulse Rate 95 88 94 Blood Pressure 153/87 H 154/92 H Pulse Oximetry 10/28/24 18:16 10/28/24 18:31 10/28/24 18:46 Temperature Pulse Rate 91 90 90 Blood Pressure 158/95 H 150/84 H 152/86 H Pulse Oximetry 10/28/24 19:01 10/28/24 19:16 10/28/24 19:31 Temperature Pulse Rate 98 93 122 H Blood Pressure 139/87 157/92 H 137/99 H Pulse Oximetry 10/28/24 19:46 10/28/24 20:00 10/28/24 20:43 Temperature 97.9 F Pulse Rate 95 Blood Pressure 145/86 H Pulse Oximetry 99 10/28/24 20:48 10/28/24 20:53 10/28/24 20:53 Temperature Pulse Rate Blood Pressure Pulse Oximetry 100 99 100 10/28/24 20:58 10/28/24 21:03 10/28/24 21:08 Temperature Pulse Rate Blood Pressure Pulse Oximetry 99 100 100 10/28/24 21:13 10/28/24 21:18 10/28/24 21:23 Temperature Pulse Rate Blood Pressure Pulse Oximetry 99 99 99 10/28/24 21:28 10/28/24 21:33 10/28/24 21:37 Temperature Pulse Rate 91 Blood Pressure Pulse Oximetry 99 99 10/28/24 21:38 10/28/24 21:43 10/28/24 21:48 Temperature Pulse Rate Blood Pressure Pulse Oximetry 99 100 100 10/28/24 21:53 10/28/24 21:58 10/28/24 22:00 Temperature 98 F Pulse Rate Blood Pressure Pulse Oximetry 100 100 10/28/24 22:03 10/28/24 22:08 10/28/24 22:13 Temperature Pulse Rate Blood Pressure Pulse Oximetry 99 100 100 10/28/24 22:18 10/28/24 22:23 10/28/24 22:27 Temperature Pulse Rate 91 Blood Pressure Pulse Oximetry 100 100 10/28/24 22:28 10/28/24 22:30 10/28/24 22:33 Temperature Pulse Rate 89 Blood Pressure Pulse Oximetry 100 100 10/28/24 22:38 10/28/24 22:43 10/28/24 22:48 Temperature Pulse Rate Blood Pressure Pulse Oximetry 100 100 100 10/28/24 22:53 10/28/24 22:58 10/28/24 23:00 Temperature Pulse Rate 93 Blood Pressure 166/95 H Pulse Oximetry 100 100 10/28/24 23:03 10/28/24 23:08 10/28/24 23:13 Temperature Pulse Rate Blood Pressure Pulse Oximetry 99 99 99 10/28/24 23:18 10/28/24 23:23 10/28/24 23:28 Temperature Pulse Rate Blood Pressure Pulse Oximetry 99 99 99 10/28/24 23:30 10/28/24 23:33 10/28/24 23:38 Temperature Pulse Rate 93 Blood Pressure 176/99 H Pulse Oximetry 100 99 10/28/24 23:43 10/28/24 23:48 10/28/24 23:53 Temperature Pulse Rate 99 Blood Pressure 172/100 H Pulse Oximetry 99 100 100 10/28/24 23:55 10/28/24 23:56 10/28/24 23:58 Temperature Pulse Rate 104 H 95 Blood Pressure 159/100 H 168/89 H Pulse Oximetry 100 10/29/24 00:00 10/29/24 00:03 10/29/24 00:04 Temperature 97.9 F Pulse Rate 95 91 102 H Blood Pressure 164/96 H 150/84 H 146/83 H Pulse Oximetry 100 10/29/24 00:06 10/29/24 00:08 10/29/24 00:10 Temperature Pulse Rate 91 96 92 Blood Pressure 137/84 132/76 125/69 Pulse Oximetry 100 10/29/24 00:13 10/29/24 00:15 10/29/24 00:18 Temperature Pulse Rate 84 82 Blood Pressure 116/68 107/56 L Pulse Oximetry 100 100 10/29/24 00:23 10/29/24 00:28 10/29/24 00:30 Temperature Pulse Rate 83 Blood Pressure 96/60 L Pulse Oximetry 99 97 10/29/24 00:33 10/29/24 00:38 10/29/24 00:43 Temperature Pulse Rate Blood Pressure Pulse Oximetry 98 98 97 10/29/24 00:45 10/29/24 00:48 10/29/24 00:49 Temperature Pulse Rate 83 75 Blood Pressure 85/49 L 115/72 Pulse Oximetry 98 10/29/24 00:53 10/29/24 00:58 10/29/24 01:00 Temperature Pulse Rate 95 Blood Pressure 86/31 L Pulse Oximetry 98 99 10/29/24 01:04 10/29/24 01:06 10/29/24 01:07 Temperature Pulse Rate Blood Pressure Pulse Oximetry 100 100 100 10/29/24 01:07 10/29/24 01:12 10/29/24 01:15 Temperature Pulse Rate 97 Blood Pressure 119/63 Pulse Oximetry 100 100 10/29/24 01:17 10/29/24 01:22 10/29/24 01:27 Temperature Pulse Rate Blood Pressure Pulse Oximetry 100 100 100 10/29/24 01:30 10/29/24 01:31 10/29/24 01:36 Temperature Pulse Rate 99 Blood Pressure 131/70 Pulse Oximetry 100 100 10/29/24 01:41 10/29/24 01:45 10/29/24 01:46 Temperature Pulse Rate 108 H Blood Pressure 124/67 Pulse Oximetry 100 99 10/29/24 01:51 10/29/24 01:56 10/29/24 02:00 Temperature 98.2 F Pulse Rate 109 H Blood Pressure 130/73 Pulse Oximetry 99 100 10/29/24 02:02 10/29/24 02:07 10/29/24 02:12 Temperature Pulse Rate Blood Pressure Pulse Oximetry 100 99 96 10/29/24 02:13 10/29/24 02:15 10/29/24 02:18 Temperature Pulse Rate 87 Blood Pressure 108/57 L Pulse Oximetry 99 99 10/29/24 02:21 10/29/24 02:21 10/29/24 02:26 Temperature Pulse Rate Blood Pressure Pulse Oximetry 100 100 100 10/29/24 02:30 10/29/24 02:35 10/29/24 02:40 Temperature Pulse Rate 92 Blood Pressure 124/72 Pulse Oximetry 100 100 100 10/29/24 02:45 10/29/24 02:48 10/29/24 02:50 Temperature Pulse Rate 88 Blood Pressure 113/59 L Pulse Oximetry 100 100 100 10/29/24 02:51 10/29/24 02:52 10/29/24 02:52 Temperature Pulse Rate Blood Pressure Pulse Oximetry 100 100 100 10/29/24 02:53 10/29/24 02:53 10/29/24 02:54 Temperature Pulse Rate Blood Pressure Pulse Oximetry 100 100 100 10/29/24 02:55 10/29/24 02:56 10/29/24 02:57 Temperature Pulse Rate Blood Pressure Pulse Oximetry 100 100 100 10/29/24 02:57 10/29/24 02:57 10/29/24 02:58 Temperature Pulse Rate Blood Pressure Pulse Oximetry 100 100 100 10/29/24 02:58 10/29/24 02:59 Temperature Pulse Rate Blood Pressure Pulse Oximetry 100 100 Exam Const: General: cooperative, comfortable and awake Nutritional Appearance: obese Orientation/consciousness: oriented to person, oriented to place and oriented to time Resp: Effort & Inspection: normal respiratory effort Cardio: Rate: regular rate Rhythm: regular rhythm Heart sounds: S1 normal heart sound present and S2 normal heart sound present GI: Inspection: normal to inspection (Gravid soft uterus) : Speculum Exam - Vagina: normal appearance of the vagina Speculum Exam - Cervix: normal appearance of the cervix (Cervix 4.5/75/3 AROM clear. Variables present) H&P: Results Labs Labs: Short CBC 10/28/24 Range/Units 22:17 WBC 7.7 (4.5-10.0) K/mm3 Hgb 11.9 L (12.0-15.0) g/dL Hct 36.3 L (37.0-47.0) % Plt Count 254 (150-375) k/mm3 BMP 10/28/24 10/28/24 10/28/24 22:59 22:59 22:59 Sodium 133 L Cancelled Potassium 3.9 Cancelled Chloride 108 H Carbon Dioxide BUN Creatinine Glucose Calcium 10/28/24 10/28/24 10/28/24 22:59 22:59 22:59 Sodium Potassium Chloride Cancelled Carbon Dioxide 18 L Cancelled BUN 13 Cancelled Creatinine 0.69 L Glucose Calcium 10/28/24 10/28/24 10/28/24 22:59 22:59 22:59 Sodium Potassium Chloride Carbon Dioxide BUN Creatinine Cancelled Glucose 116 H Cancelled Calcium 9.9 Cancelled Liver Function 10/28/24 10/28/24 10/28/24 Range/Units 22:59 22:59 22:59 Total Bilirubin 0.3 Cancelled (0.2-1.3) mg/dL AST 23 Cancelled (14-36) U/L ALT 21 (6-35) U/L Alkaline Phosphatase (38-126) U/L Albumin (3.5-5.1) g/dL 10/28/24 10/28/24 10/28/24 Range/Units 22:59 22:59 22:59 Total Bilirubin (0.2-1.3) mg/dL AST (14-36) U/L ALT Cancelled (6-35) U/L Alkaline Phosphatase 237 H Cancelled (38-126) U/L Albumin 3.3 L Cancelled (3.5-5.1) g/dL Assessment and Plan Assessment and plan (1) Gestational hypertension: Code(s): O13.9 - Gestational [-induced] hypertension without significant proteinuria, unspecified trimester Status: Acute (2) Gestational diabetes: Code(s): O24.419 - Gestational diabetes mellitus in , unspecified control Status: Acute Plan Membranes were ruptured. Epidural is in. Blood pressure and sugars are presently controlled. Risks benefits of vaginal after revealed
[2024-10-29] MEDS: SODIUM CHLORIDE 0.9% IV 300 ML 600 ML I-UTERINE (03:10)
[2024-10-29] MEDS: LACTATED RINGERS 1,000 ML 125 ML IV CONT (03:10)
--- NOTE | 2024-10-29 03:43 | WPDHPUPDATE1 ---
History and Physical Update Update Date/Time: 10/29/24 03:43 History and Physical has been reviewed, including an updated exam of the patient. There are NO changes in the patient's condition. Risks, benefits, and alternatives have been discussed and questions answered. Patient agrees to proceed with procedure. Patient continues with continuous late decelerations. Head is still high. In light of the lack of change and the intolerance of labor by the baby she is offered low-transverse section risks and benefits reviewed including exclusive of , aspiration pneumonia bleeding, transfusion, perforation injury to bowel, bladder, ureters, or other internal organs with need for repair reviewed
[2024-10-29] MEDS: ACETAMINOPHEN 500 MG TABLET 1000 MG (03:56)
[2024-10-29] MEDS: ACETAMINOPHEN 500 MG TABLET 1000 MG PO ×3 (03:58→21:00)
[2024-10-29] MEDS: ONDANSETRON INJ 4 MG/2 ML VIAL IV PUSH (03:58)
[2024-10-29] MEDS: AZITHROMYCIN IV 500 MG in SODIUM CHLORIDE 0.9% IV 250 ML IVPB (04:00)
--- NOTE | 2024-10-29 05:00 | W.PM.OBCSD ---
OB - Delivery Note Procedure Delivery date: 10/29/24 Pre-op diagnosis: Gestational Diabetes and Gestational Hypertension Post-op Diagnosis: Other (Same with intolerance to labor) Induction method: None Delivery monitor: External FHT and Internal Uterine Prior to decision for section, ACOG/SMFM labor guidelines were considered and discussed with the patient and staff. Decision made to proceed with the section.: Yes Procedure Performed: Repeat Surgeon: Cody Flood MD Anesthesia type: Epidural Description of Procedure/Findings: Patient was admitted 30/6 and half weeks gestation with elevated blood pressure and gestational diabetes. She spontaneously went into labor. Artificial rupture membranes was performed and the head was noted to be high recurrent late decelerations were noted and decision was made for repeat section risks and benefits reviewed. Patient was taken back and prepped and draped in the normal sterile fashion placed in the supine position. Under excellent epidural anesthesia the abdomen was entered through the previous and Pfannenstiel incision progressive layers the fascia. Fascia incised midline carried number doubt fashion bilaterally. Underlying muscles were sharply dissected. Parietal peritoneum entered by Marry clamps and by sharp dissection. This was carried superiorly and inferiorly and dome of the bladder. Bladder blade placed. Bladder blade returned. A low transverse incision made the head delivered the ANCA position. Nuchal cord checked noted be loose x1 wrapped around the occiput. Anterior posterior shoulder delivered spontaneously. Cord clamped x2 and cut and passed off the table given Apgars of 8 and 8 at 1 and 5minutes respectively. Placenta delivered intact manually. Uterus delivered on the abdomen wrapped in a moist towel. After assuring no membranes or debris remained in the uterus, the uterus closed continuous running locking 0 Vicryl from lateral edge to lateral edge. This followed by 2nd imbricating running locking 0 Vicryl from lateral edge to lateral edge. Hemostasis was assured ovaries and tubes appeared within normal limits there were several small fibroids present about the size of a large marbles. The uterus returned to the abdomen. The laps removed and accounted for. The hysterotomy incision inspected once again and noted be hemostatic and sprinkled with [place] term. The fascia closed with continuous running 0 Vicryl from lateral edge to lateral edge. Irrigation subcutaneous layer the skin closed with 4 Monocryl and glue QBL was 11 80. All sponge, needle, instrument counts were correct. There were no immediate complications noted Estimated Blood Loss: 1,180 Drains: No Packing: No Pathology: None sent Complications: No immediate complications Condition: Stable Disposition: Floor [place] Baby Date of : 10/29/24 Time of : 04:45 Gestational Age by Date: 36 Infant gender: Male Weight (pounds): 7 Weight (ounces): 15 presentation: vertex position: Right Occiput Anterior Placenta delivery description: Manual Removal Cord Vessel Description: 3 Vessels, Nuchal Cord, Loose and Reduced score one minute: 8 score five minutes: 8
--- NOTE | 2024-10-29 05:04 | PM.DS ---
DS: Admitting Diagnosis Discharge Date 10/31/2024 Admitting Diagnosis Pre term labor/gestational hypertension/gestational diabetes DS: Discharge Diagnosis Discharge Diagnosis (1) Gestational diabetes: Code(s): O24.419 - Gestational diabetes mellitus in , unspecified control Status: Acute (2) Gestational hypertension: Code(s): O13.9 - Gestational [-induced] hypertension without significant proteinuria, unspecified trimester Status: Acute (3) Current with history of pre-term labor in third trimester: Code(s): O09.213 - Supervision of with history of pre-term labor, third trimester Status: Acute DS: Summary Hospital Course Reason for hospitalization: Patient was admitted at 36 and half weeks gestation in 2 to variable decelerations on NST. been complicated by previous section with a successful use 36 and 5 7th weeks gestation with gestational hypertension and gestational diabetes. She she wanted a spontaneous labor and underwent low-transverse section as the baby's head remained high and multiple recent deceleration is were noted Hospital Course: Patient's hospital course unremarkable. She remained afebrile. She was up, voiding without difficulty, eating regular diet, ambulating, and generally without complaints. Time Spent with Patient Time attestation: Total time spent providing and/or coordinating discharge services: Exam Const: General: cooperative, comfortable and awake Nutritional Appearance: obese Orientation/consciousness: oriented to person, oriented to place and oriented to time Resp: Effort & Inspection: normal respiratory effort Cardio: Rate: regular rate Rhythm: regular rhythm Heart sounds: S1 normal heart sound present and S2 normal heart sound present GI: Inspection: normal to inspection (Gravid soft uterus) : Speculum Exam - Vagina: normal appearance of the vagina Speculum Exam - Cervix: normal appearance of the cervix (Cervix 4.5/75/3 AROM clear. Variables present) DS: Data Data Completed and Pending Labs on day of discharge: Labs from last 24 hours 10/28/24 10/28/24 10/28/24 22:59 22:59 22:59 WBC RBC Hgb Hct MCV MCH MCHC RDW Plt Count MPV Immature Gran % (Auto) Neut % (Auto) Lymph % (Auto) [place] % (Auto) Eos % (Auto) Baso % (Auto) Lymph # (Auto) [place] # (Auto) Eos # (Auto) Baso # (Auto) Abs Immat Gran (auto) Absolute Neuts (auto) Absolute Nucleated RBC Nucleated RBC % % Immature Plt Fraction Sodium Potassium Chloride Carbon Dioxide Anion Gap BUN Creatinine Estim Creat Clear Calc Estimated GFR Glucose Uric Acid Calcium Total Bilirubin AST ALT Alkaline Phosphatase Cancelled Total Protein Cancelled 6.8 Albumin Cancelled 3.3 L Syphilis IgG/IgM Ab Non-reactive Blood Type Antibody Screen 10/28/24 10/28/24 10/28/24 22:59 22:59 22:59 WBC RBC Hgb Hct MCV MCH MCHC RDW Plt Count MPV Immature Gran % (Auto) Neut % (Auto) Lymph % (Auto) [place] % (Auto) Eos % (Auto) Baso % (Auto) Lymph # (Auto) [place] # (Auto) Eos # (Auto) Baso # (Auto) Abs Immat Gran (auto) Absolute Neuts (auto) Absolute Nucleated RBC Nucleated RBC % % Immature Plt Fraction Sodium Potassium Chloride Carbon Dioxide Anion Gap BUN Creatinine Estim Creat Clear Calc Estimated GFR Glucose Uric Acid Calcium Total Bilirubin Cancelled AST Cancelled 23 ALT Cancelled 21 Alkaline Phosphatase 237 H Total Protein Albumin Syphilis IgG/IgM Ab Blood Type Antibody Screen 10/28/24 10/28/24 10/28/24 22:59 22:59 22:59 WBC RBC Hgb Hct MCV MCH MCHC RDW Plt Count MPV Immature Gran % (Auto) Neut % (Auto) Lymph % (Auto) [place] % (Auto) Eos % (Auto) Baso % (Auto) Lymph # (Auto) [place] # (Auto) Eos # (Auto) Baso # (Auto) Abs Immat Gran (auto) Absolute Neuts (auto) Absolute Nucleated RBC Nucleated RBC % % Immature Plt Fraction Sodium Potassium Chloride Carbon Dioxide Anion Gap BUN Creatinine Estim Creat Clear Calc Estimated GFR Cancelled Glucose Cancelled 116 H Uric Acid 5.5 Calcium Cancelled 9.9 Total Bilirubin 0.3 AST ALT Alkaline Phosphatase Total Protein Albumin Syphilis IgG/IgM Ab Blood Type Antibody Screen 10/28/24 10/28/24 10/28/24 22:59 22:59 22:59 WBC RBC Hgb Hct MCV MCH MCHC RDW Plt Count MPV Immature Gran % (Auto) Neut % (Auto) Lymph % (Auto) [place] % (Auto) Eos % (Auto) Baso % (Auto) Lymph # (Auto) [place] # (Auto) Eos # (Auto) Baso # (Auto) Abs Immat Gran (auto) Absolute Neuts (auto) Absolute Nucleated RBC Nucleated RBC % % Immature Plt Fraction Sodium Potassium Chloride Carbon Dioxide Anion Gap BUN Cancelled Creatinine Cancelled 0.69 L Estim Creat Clear Calc Cancelled 131 Estimated GFR > 60 Glucose Uric Acid Calcium Total Bilirubin AST ALT Alkaline Phosphatase Total Protein Albumin Syphilis IgG/IgM Ab Blood Type Antibody Screen 10/28/24 10/28/24 10/28/24 22:59 22:59 22:59 WBC RBC Hgb Hct MCV MCH MCHC RDW Plt Count MPV Immature Gran % (Auto) Neut % (Auto) Lymph % (Auto) [place] % (Auto) Eos % (Auto) Baso % (Auto) Lymph # (Auto) [place] # (Auto) Eos # (Auto) Baso # (Auto) Abs Immat Gran (auto) Absolute Neuts (auto) Absolute Nucleated RBC Nucleated RBC % % Immature Plt Fraction Sodium Potassium Chloride Cancelled Carbon Dioxide Cancelled 18 L Anion Gap Cancelled 7 BUN 13 Creatinine Estim Creat Clear Calc Estimated GFR Glucose Uric Acid Calcium Total Bilirubin AST ALT Alkaline Phosphatase Total Protein Albumin Syphilis IgG/IgM Ab Blood Type Antibody Screen 10/28/24 10/28/24 10/28/24 22:59 22:59 22:59 WBC RBC Hgb Hct MCV MCH MCHC RDW Plt Count MPV Immature Gran % (Auto) Neut % (Auto) Lymph % (Auto) [place] % (Auto) Eos % (Auto) Baso % (Auto) Lymph # (Auto) [place] # (Auto) Eos # (Auto) Baso # (Auto) Abs Immat Gran (auto) Absolute Neuts (auto) Absolute Nucleated RBC Nucleated RBC % % Immature Plt Fraction Sodium Cancelled 133 L Potassium Cancelled 3.9 Chloride 108 H Carbon Dioxide Anion Gap BUN Creatinine Estim Creat Clear Calc Estimated GFR Glucose Uric Acid Calcium Total Bilirubin AST ALT Alkaline Phosphatase Total Protein Albumin Syphilis IgG/IgM Ab Blood Type Antibody Screen 10/28/24 22:17 WBC 7.7 RBC 4.35 Hgb 11.9 L Hct 36.3 L MCV 83.4 MCH 27.4 MCHC 32.8 RDW 14.3 Plt Count 254 MPV 12.6 H Immature Gran % (Auto) 0.3 Neut % (Auto) 62.0 Lymph % (Auto) 26.3 [place] % (Auto) 10.2 H Eos % (Auto) 0.8 Baso % (Auto) 0.4 Lymph # (Auto) 2.02 [place] # (Auto) 0.8 H Eos # (Auto) 0.1 Baso # (Auto) 0.0 Abs Immat Gran (auto) 0.02 Absolute Neuts (auto) 4.8 Absolute Nucleated RBC 0.020 H Nucleated RBC % 0.3 H % Immature Plt Fraction 9.2 Sodium Potassium Chloride Carbon Dioxide Anion Gap BUN Creatinine Estim Creat Clear Calc Estimated GFR Glucose Uric Acid Calcium Total Bilirubin AST ALT Alkaline Phosphatase Total Protein Albumin Syphilis IgG/IgM Ab Blood Type A Positive Antibody Screen Negative Discharge Plan Discharge Attending physician on discharge: Cody Nice Discharging Clinician: Cody Nice Patient Disposition: Home Activity: may shower, no straining and pelvic rest Diet: heart healthy Wound Care Instructions: follow printed instructions Patient Instructions: Antibiotic Form Patient Language: Irish Stand Alone Forms: General Discharge Information Follow-up/Referrals: Sarita Davis MD [Physician, [facility]] Discharge Medications: New hydrocodone-acetaminophen 5-325 mg tablet 1 tablet PO Q4H PRN (Reason: pain) Qty: 20 0RF Continued aspirin 81 mg capsule 81 mg PO DAILY sertraline [Zoloft] 50 mg tablet 50 mg PO DAILY PNV no.95-ferrous fumarate-FA [] 28 mg iron- 800 mcg tablet 1 tablet PO DAILY Date of admission: 10/28/24 20:00 Primary Care Provider: Farhad Whitehead Admitting Provider: Sarita Davis Attending physician on admission: Sarita Davis Condition: Stable
[2024-10-29] MEDS: OXYTOCIN 30 UNITS/NS 500 ML 30 UNITS/500 ML BAG 125 UNITS IV CONT (05:45)
[2024-10-29] MEDS: ceFAZolin 2 GM in SODIUM CHLORIDE 0.9% IV 50 ML 100 ML IVPB (06:19)
[2024-10-29] MEDS: FAMOTIDINE 20 MG/2 ML VIAL IV PUSH (06:19)
[2024-10-29] MEDS: LIDOCAINE 5% PATCH 1 PATCH TRANSDERM (08:01)
[2024-10-29] MEDS: KETOROLAC 15 MG/ML VIAL (*BKC) IV PUSH ×3 (08:02→21:00)
[2024-10-29] MEDS: SIMETHICONE 80 MG TAB.CHEW PO ×3 (08:02→21:00)
[2024-10-29] MEDS: SERTRALINE HCL 50 MG TABLET PO (08:57)
[2024-10-29] MEDS: MULTIVIT/MIN/PREN/FOL AC/IRON TABLET 1 TAB PO (08:57)
[2024-10-29] MEDS: DOCUSATE SODIUM 100 MG CAPSULE PO (08:57)
[2024-10-29] MEDS: LABETALOL HCL 100 MG TABLET 200 MG PO ×2 (08:57→21:01)
[2024-10-29] MEDS: oxyCODONE HCL (*CRX) 5 MG TAB IR 10 MG PO ×2 (09:21→18:43)
[2024-10-29] MEDS: DEXTROSE 5%/0.45% SOD CHL 1,000 ML 125 ML IV CONT (10:37)
--- NOTE | 2024-10-29 11:45 | PC.NURSE ---
1145: Mother attempting to wake infant to breastfeed. He has breastfed a few times so far but is increasingly sleepy. He is 36 weeks gestation and mother is educated on expected behaviors. Your handout given. Mom is holding baby in football hold and we undress him and stimulate him to wake. He does not root or give any feeding cues. Mom is encouraged to hold baby skin to skin on her chest for 15 minutes and then we will try again. Mother is agreeable to pumping due to her infant's gestational age. Primary RN updated. 1200: Breast pump provided due to [ infant and unable to wake to feed]. Instructions given on cleaning, care, usage, that there should be no pain, pumping schedule for milk production, collection, and storage of human milk. Patient was assessed for correct placement, flange size (measure 22mm, Chantale recommends 27mm flange), to pump for adequate milk production every 3 hours (8 times in 24 hours) 1-2 times at night. Mother is instructed to call out when she has completed pumping so that we can feed baby any expressed milk she has. Mother voiced understanding of the education shared along with mom/baby guide for additional resource information. Reported to the Primary RN.
[2024-10-29] MEDS: LANOLIN (LANSINOH) 7.5 GM CREAM 1 APPLIC TOPICAL (19:24)
--- NOTE | 2024-10-29 20:18 | PC.NURSE ---
2018- This RN assisted pt up out of bed, taking steps in room without difficulty. Pt states she feels a lot better standing up. FC removed, Pt instructed to call when needing to void. Pt now sitting in chair without complaint of pain. Will continue to monitor.
[2024-10-30] MEDS: IBUPROFEN 600 MG TABLET PO ×4 (03:03→20:36)
[2024-10-30] MEDS: ACETAMINOPHEN 500 MG TABLET 1000 MG PO ×4 (03:03→20:36)
[2024-10-30 05:39] LABS: Hematocrit 32.5 % (37.0-47.0); Hemoglobin 10.4 g/dL (12.0-15.0); Immature Granulocyte Percent A 0.5 % (0-0.5); Lymphocytes Absolute Auto 1.06 K/mm3 (0.9-3.2); Mean Corpuscular HGB Conc 32.0 g/dl (32-36); Mean Corpuscular Hemoglobin 27.2 pg (26-34); Mean Corpuscular Volume 85.1 fl (80-100); Nucleated Red Blood Cells Absolute Auto 0.000 K/mm3 (0.0-0.012); Nucleated Red Blood Cells Perc 0.0 % (0.0-0.2); Platelet Count Result 222 k/mm3 (150-375); Red Blood Count 3.82 M/mm3 (4.2-5.4); White Blood Count 15.0 K/mm3 (4.5-10.0)
--- NOTE | 2024-10-30 07:39 | PM.OBPNVD ---
OB - PN: Subj Subjective Date/time seen: 10/30/24 07:39 Patient comments: no complaints, pain well controlled, tolerating diet and flatus present [place] baby status: doing well OB - PN: Obj Data Labs 10/30/24 03:59 10/28/24 22:59 Labs: Laboratory Results - last 24 hr 10/30/24 03:59 WBC 15.0 H RBC 3.82 L Hgb 10.4 L Hct 32.5 L MCV 85.1 MCH 27.2 MCHC 32.0 RDW 14.3 Plt Count 222 MPV 12.0 H Immature Gran % (Auto) 0.5 Neut % (Auto) 84.4 H Lymph % (Auto) 7.1 L [place] % (Auto) 7.5 Eos % (Auto) 0.3 Baso % (Auto) 0.2 Lymph # (Auto) 1.06 [place] # (Auto) 1.1 H Eos # (Auto) 0.1 Baso # (Auto) 0.0 Abs Immat Gran (auto) 0.08 H Absolute Neuts (auto) 12.7 H Absolute Nucleated RBC 0.000 Nucleated RBC % 0.0 OB - PN A/P Assessment and Plan (1) Gestational diabetes: Code(s): O24.419 - Gestational diabetes mellitus in , unspecified control Status: Acute (2) Current with history of pre-term labor in third trimester: Code(s): O09.213 - Supervision of with history of pre-term labor, third trimester Status: Acute (3) Gestational hypertension: Code(s): O13.9 - Gestational [-induced] hypertension without significant proteinuria, unspecified trimester Status: Acute Plan routine care Time Spent With Patient Time: Total time spent is greater than 50% in coordination of care (as documented) at patient's floor/unit and/or counseling patient: Review of Systems Review of Systems: CONSTITUTIONAL: Denies body aches, fever, chills, or sweats. EYES: Denies visual changes, redness, or discharge. ENT: Reports rhinorrhea, congestion, denies sore throat, or otalgia. CARDIOVASCULAR: Reports right sided chest pain, denies palpitations, or edema. RESPIRATORY: denies cough, sob, wheezing. GASTROINTESTINAL: Denies abdominal pain, nausea, vomiting, or diarrhea. GENITOURINARY: Denies dysuria or hematuria. SKIN: Denies rash, itching, or wounds. MUSCULOSKELETAL: Denies back pain, joint pain, or myalgia. NEUROLOGIC: Reports headache, denies numbness, tingling, or weakness. PSYCH: Reports anxiety. All systems reviewed & are unremarkable except as noted in HPI and below Exam Const: General: cooperative, comfortable and awake Nutritional Appearance: obese Orientation/consciousness: oriented to person, oriented to place and oriented to time Resp: Effort & Inspection: normal respiratory effort Cardio: Rate: regular rate Rhythm: regular rhythm Heart sounds: S1 normal heart sound present and S2 normal heart sound present GI: Inspection: normal to inspection (Gravid soft uterus) : Speculum Exam - Vagina: normal appearance of the vagina Speculum Exam - Cervix: normal appearance of the cervix (Cervix 4.5/75/3 AROM clear. Variables present)
[2024-10-30 07:45] VITALS: BP 139/86; PULSE 84; RESP 16; TEMP 36.8; O2SAT 100
[2024-10-30] MEDS: SIMETHICONE 80 MG TAB.CHEW PO ×3 (08:35→15:03)
[2024-10-30] MEDS: LABETALOL HCL 100 MG TABLET 200 MG PO ×2 (08:35→20:36)
[2024-10-30] MEDS: SERTRALINE HCL 50 MG TABLET PO (08:35)
[2024-10-30] MEDS: MULTIVIT/MIN/PREN/FOL AC/IRON TABLET 1 TAB PO (08:35)
[2024-10-30] MEDS: DOCUSATE SODIUM 100 MG CAPSULE PO ×2 (08:35→15:03)
[2024-10-30] MEDS: LIDOCAINE 5% PATCH 1 PATCH TRANSDERM (08:36)
[2024-10-30] MEDS: oxyCODONE HCL (*CRX) 5 MG TAB IR 10 MG PO ×2 (10:14→19:19)
--- NOTE | 2024-10-30 14:32 | WPDANLDPN2 ---
Anes-Prog Note L&D Date/Time: 10/30/24 14:32 Comfortable throughout: labor and section Neuraxial method: epidural Epidural/Spinal procedure site: clean & non-tender Neuro status: Neuro function grossly intact. Cardiovascular status: normal Respiratory status: normal Airway patency: baseline Mental status: baseline Post-Op hydration status: normal Vital Signs: Last Vital Signs Temp 36.8 C 10/30/24 07:45 Pulse 84 10/30/24 07:45 Resp 16 10/30/24 07:45 BP 139/86 10/30/24 07:45 Pulse Ox 100 10/30/24 07:45 O2 Del Method Room Air 10/29/24 07:45 Pain score (VAS): 2 I/O: Intake & Output 10/29/24 10/30/24 10/30/24 23:59 07:59 15:59 Intake Total 500 Output Total 1950 Balance -1450 Patient feedback: Patient satisfied with anesthetic care.
--- NOTE | 2024-10-30 14:33 | WPDANLDNPN2 ---
Anes-Prog Note L&D-Neuraxial Date/Time: 10/30/24 14:33 Neuraxial medications: epidural PF morphine Opiod-related complaints: none Patient feedback: Patient satisfied with post-operative pain management.
[2024-10-30 15:20] VITALS: BP 128/78; PULSE 86; RESP 16; TEMP 36.8; O2SAT 99
[2024-10-30 19:15] VITALS: BP 133/88; PULSE 91; RESP 16; TEMP 36.4; O2SAT 100
[2024-10-30 20:36] VITALS: PULSE 91
[2024-10-30 23:20] VITALS: BP 134/83; PULSE 91
[2024-10-31] MEDS: oxyCODONE HCL (*CRX) 5 MG TAB IR 10 MG PO (02:28)
[2024-10-31] MEDS: ACETAMINOPHEN 500 MG TABLET 1000 MG PO ×2 (02:29→09:01)
[2024-10-31] MEDS: IBUPROFEN 600 MG TABLET PO ×2 (02:29→09:01)
[2024-10-31 05:05] VITALS: BP 133/78
--- NOTE | 2024-10-31 08:18 | P.PNOB_ITS ---
OB - PN: Subj Subjective Date/time seen: 10/31/24 08:18 Patient comments: no complaints, pain well controlled, tolerating diet and flatus present [place] baby status: doing well OB - PN: Obj Data Labs 10/30/24 03:59 10/28/24 22:59 OB - PN A/P Assessment and Plan (1) Gestational diabetes: Code(s): O24.419 - Gestational diabetes mellitus in , unspecified control Status: Acute (2) Current with history of pre-term labor in third trimester: Code(s): O09.213 - Supervision of with history of pre-term labor, third trimester Status: Acute (3) Gestational hypertension: Code(s): O13.9 - Gestational [-induced] hypertension without significant proteinuria, unspecified trimester Status: Acute Plan home. f/u 3 weeks Time Spent With Patient Time: Total time spent is greater than 50% in coordination of care (as documented) at patient's floor/unit and/or counseling patient: Review of Systems 2 Review of Systems: CONSTITUTIONAL: Denies body aches, fever, chills, or sweats. EYES: Denies visual changes, redness, or discharge. ENT: Reports rhinorrhea, congestion, denies sore throat, or otalgia. CARDIOVASCULAR: Reports right sided chest pain, denies palpitations, or edema. RESPIRATORY: denies cough, sob, wheezing. GASTROINTESTINAL: Denies abdominal pain, nausea, vomiting, or diarrhea. GENITOURINARY: Denies dysuria or hematuria. SKIN: Denies rash, itching, or wounds. MUSCULOSKELETAL: Denies back pain, joint pain, or myalgia. NEUROLOGIC: Reports headache, denies numbness, tingling, or weakness. PSYCH: Reports anxiety. All systems reviewed & are unremarkable except as noted in HPI and below Exam 2 Const: General: cooperative, healthy appearing, comfortable and obese O rientation/consciousness: oriented to person, oriented to place and oriented to time Resp: Effort & Inspection: normal respiratory effort Cardio: Rate: regular rate Rhythm: regular rhythm Heart sounds: S1 normal heart sound present and S2 normal heart sound present GI: Inspection: normal to inspection and incision (cdi)
[2024-10-31 09:00] VITALS: BP 143/83; PULSE 115; RESP 18; TEMP 36.8; O2SAT 100
[2024-10-31] MEDS: SIMETHICONE 80 MG TAB.CHEW PO (09:01)
[2024-10-31 09:02] VITALS: PULSE 116
[2024-10-31] MEDS: DOCUSATE SODIUM 100 MG CAPSULE PO (09:02)
[2024-10-31] MEDS: LABETALOL HCL 100 MG TABLET 200 MG PO (09:02)
[2024-10-31] MEDS: MULTIVIT/MIN/PREN/FOL AC/IRON TABLET 1 TAB PO (09:03)
[2024-10-31] MEDS: SERTRALINE HCL 50 MG TABLET PO (09:03)
[2024-10-31] MEDS: LIDOCAINE 5% PATCH 1 PATCH TRANSDERM (09:04)
[2024-10-31] MEDS: oxyCODONE HCL (*CRX) 5 MG TAB IR PO ×2 (09:04→12:33)
--- NOTE | 2024-10-31 10:14 | PC.NURSE ---
Consulted with mother concerning needs and she shared her ability to independently latch infant optimally without pain, she is also feeding infant formula bottles after she breast feeds when she feels like infant is not satisfied. Per mother she feels like her milk is not in just yet so baby is not always satisfied at the breast. Per mother she did try using the hospital Medela pump but felt like the suction was not working for her and she will use her own breast pump when she goes home, for now she will put to breast and supplement with formula. Mother is feeding appropriately for growth of and understands stimulating infant to eat if needed. Infant has had appropriate feedings in the last 24 hours meets the outcomes for weight, output, blood sugar and jaundice at this time. Reinforced understanding of milk production, transition of milk, signs of adequate intake, transition of stool, prevention/relief of engorgement, plugged ducts, mastitis, responsive watching for feeding cues, the different methods of stimulating infant to breastfeed 1-3 hours after the start of the last feeding, community resources, and when to call a provider using the resource of the feeding sheet along with the mom and baby guide. Mother voiced understanding of the information shared, is confident to continue effectively her infant at home, when to call for assistance, denies any additional assistance or education at this time. Reported to the Primary RN.
--- NOTE | 2024-10-31 11:13 | PC.NURSE ---
Patient instructed on viewing the discharge video Mother & Baby Care, The First Two Weeks. Patient was given the opportunity and encouraged to ask questions. Patient verbalized understanding of information shared and has been given the mother/baby guide for home reference.
[2024-11-02 12:45] VITALS: BP 169/91; PULSE 88; RESP 20; TEMP 36.7; O2SAT 100
== END 2024-10-31 14:14 | disposition home or self-care (01) | DRG 788 ==
LOC: ANHOBOP 20:13 → ANHLDR 10-29 03:45 → ANHOB2 10-31 08:18 → ANHLDR 11-01 09:52
PROVIDERS: Admitting Provider Obstetrics & Gynecology; Visit Provider Obstetrics & Gynecology
PROC: 10D00Z1 Extraction of Products of Conception, Low, Open Approach (ICD-10-PCS; CPT 59514; principal; 2024-10-29 03:50)
DX: O60.14X1 Preterm labor third trimester with preterm delivery third trimester, fetus 1 (principal); Z3A.36 36 weeks gestation of pregnancy; Z37.0 Single live birth; O34.211 Maternal care for low transverse scar from previous cesarean delivery; O24.420 Gestational diabetes mellitus in childbirth, diet controlled; F41.9 Anxiety disorder, unspecified; O99.344 Other mental disorders complicating childbirth; O14.04 Mild to moderate pre-eclampsia, complicating childbirth; O69.81X0 Labor and delivery complicated by cord around neck, without compression, not applicable or unspecified; O76 Abnormality in fetal heart rate and rhythm complicating labor and delivery
CPT/HCPCS: 36415; 76819; 80053; 81003; 82570; 84156; 84550; 85025; 85055; 86593; 86850; 86900; 86901; J0690; A9270; J0456; J1200; J1885; J2274; J2405; J2590; J2795; J3010; J7030; J7120